=== PATIENT | male | born 1955 | race Caucasian/White ===

== ENCOUNTER 2018-05-12 08:00 | Emergency (ER) | payer OTHER, SELFPAY ==
[2018-05-12] VITALS (52 sets, daily range): BP systolic 139–169; BP diastolic 69–91; PULSE 54–72; RESP 12–36; TEMP 37; O2SAT 92–97
--- NOTE | 2018-05-12 08:43 | DI.REPORT_ITS ---
SYMPTOM/DIAGNOSIS: LT POST SHOULDER PAIN PA AND LATERAL CHEST: The heart is normal in size. The lungs are clear. The mediastinal structures and pleura appear intact. CONCLUSION: Normal chest.
[2018-05-12 08:48] LABS: Abs Immature Grans 0.03 k/cumm (0.0-0.09); Absolute Basophil Count 0.02 k/cumm (0.0-0.2); Absolute Eosinophil Count 0.27 k/cumm (0.0-0.7); Absolute Lymphocyte Count 1.53 k/cumm (1.2-3.4); Absolute Monocyte Count 0.51 k/cumm (0.11-0.7); Absolute Neutrophil Count 4.65 k/cumm (1.2-6.7); Basophils % 0.3; Eosinophils % 3.9; HCT 39.2 % (40.0-50.0); HGB 13.3 g/dL (13.5-17.5); Immature Grans % 0.4; Lymphocytes % 21.8; Mean Corp. HGB Concentration 33.9 g/dL (32.0-36.0); Mean Corpuscular Hemoglobin 30.7 pg (27.0-33.0); Mean Corpuscular Volume 90.5 fL (80-95); Mean Platelet Volume 9.8 fL (8.0-11.0); Monocytes % 7.3; Neutrophils % 66.3; Platelet Count 239 x1000/uL (130-400); RBC 4.33 m/cumm (4.50-6.00); RBC Distribution Width 12.5 % (11.8-14.1); White Blood Cell Count 7.01 k/cumm (4.4-10.8)
[2018-05-12 08:59] LABS: Lipase 292 U/L (73-393)
[2018-05-12 09:07] LABS: ALT 31 U/L (12-78); AST 15 U/L (15-37); Albumin 3.2 g/dL (3.4-5.0); Alkaline Phosphatase 83 U/L (46-116); Anion Gap 7.6 mmol/L (3-11); BUN 25 mg/dL (7-18); Bilirubin, Direct 0.07 mg/dL (0.00-0.20); Bilirubin, Total 0.2 mg/dL (0.2-1.0); CO2 26.4 mmol/L (21.0-32.0); CREATININE 1.29 mg/dL (0.70-1.30); Calcium 9.2 mg/dL (8.5-10.1); Chloride 103 mmol/L (98-107); Glucose 195 mg/dL (70-100); Magnesium 1.6 mg/dL (1.8-2.4); Potassium 4.3 mmol/L (3.5-5.1); Sodium 137 mmol/L (136-145); Total Protein 6.6 g/dL (6.4-8.2)
[2018-05-12 09:10] LABS: Troponin I < 0.02 ng/mL (0.00-0.06)
[2018-05-12] MEDS: Normal Saline 250 ML IV (09:30)
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
--- NOTE | 2018-05-12 10:52 | DI.RPTCT_ITS ---
SYMPTOM/DIAGNOSIS: HEADACHE, LT SIDED NECK PAIN, ? ACUTE CVA NONCONTRAST HEAD CT: A noncontrast cranial CT was performed. The ventricular system is normal in appearance. There is a small periventricular focus of decreased attenuation associated with the head of the caudate nucleus on the left, this appears to represent an old infarct and was present on previous CT of 03/25/15. Another small area of decreased attenuation is noted in the basal ganglia on the right and this also was probably present on the previous examination. There is no evidence of acute intracranial hemorrhage, mass effect or midline shift. The orbital and temporal bone structures appear intact. Paranasal sinuses and mastoid air cells are well aerated as visualized. CONCLUSION: No evidence of acute intracranial process.
[2018-05-12] MEDS: Ketorolac 30 MG/ML VIAL IVP (11:52)
[2018-05-12] MEDS: Normal Saline 250 ML 500 ML IV (11:53)
[2018-05-12] MEDS: Magnesium Oxide 400 MG TAB PO (11:54)
[2018-05-12 13:23] LABS: Troponin I < 0.02 ng/mL (0.00-0.06)
--- NOTE | 2018-05-13 12:49 | PDOC.ERCMPRO ---
Care Management Progress Note 05/13-Dr. Thomas requested assistance with a neurology f/u, next available appt, for ?concussion, pat had head injury back in January. still having headaches/visual changes. Referral faxed to neurology today.
== END 2018-05-12 14:01 | disposition home or self-care (01) ==
PROVIDERS: Emergency Provider Physician Assistant; PCP Family Medicine
DX: R55 Syncope and collapse (principal); M54.2 Cervicalgia; R51 Headache; E83.42 Hypomagnesemia; E11.9 Type 2 diabetes mellitus without complications; Z79.84 Long term (current) use of oral hypoglycemic drugs; I10 Essential (primary) hypertension
CPT/HCPCS: 36415; 80053; 80076; 83690; 93005; 93225; 96361; 96374; 99285; 70450; 71046; 83735; 84484; 85025; 93010; J1885

== ENCOUNTER → 2018-05-18 10:26 | Outpatient (CLI) | payer OTHER, SELFPAY ==
[2018-05-18 12:09] LABS: TSH (W/Ref FT4) 1.48 uIU/mL (0.358-3.74)
== END ==
PROVIDERS: PCP Family Medicine; Visit Provider Family Medicine
DX: R55 Syncope and collapse (principal)
CPT/HCPCS: 36415; 84443

== ENCOUNTER 2018-05-20 01:37 | Outpatient (CLI) | payer OTHER, SELFPAY ==
--- NOTE | 2018-05-20 13:14 | DI.REPORT_ITS ---
SYMPTOMS/DIAGNOSIS: SYNCOPE, R55 CAROTID ULTRASOUND: The intimal thickness is at the upper limits of normal in thickness in the distal common carotid arteries. There is a 1.2 cm prominence adjacent to the vessel wall measuring approximately 1.2 cm involving the proximal wall of the left internal carotid artery, which may represent soft plaque and occupies approximately one-half of the proximal left ICA diameter. There is no evidence of stenosis. No significant stenosis is identified in the right or left carotid arteries. There is bilateral antegrade flow in the vertebrals. SUMMARY: No evidence of significant carotid stenosis. Questioned area of soft plaque involving the proximal portion of the left internal carotid artery without evidence of stenosis.
== END 2018-05-20 01:38 ==
PROVIDERS: PCP Family Medicine; Visit Provider Family Medicine
DX: R55 Syncope and collapse (principal); I65.22 Occlusion and stenosis of left carotid artery
CPT/HCPCS: 93880

== ENCOUNTER 2018-05-20 02:53 | Outpatient (CLI) | payer OTHER, SELFPAY ==
--- NOTE | 2018-05-20 15:30 | PFT_ITS ---
INTERPRETATION SPIROMETRY: Spirometry shows no evidence of obstructive airways disease. No bronchodilator response. LUNG VOLUMES: Lung volumes show mild restriction. DIFFUSION CAPACITY: Borderline mildly reduced which is normal when corrected to alveolar volume. AIRWAY RESISTANCE: Normal. IMPRESSION: Mild restrictive lung disease. Clinical correlation recommended. If underlying interstitial lung disease is suspected as the cause of underlying pulmonary hypertension, further evaluation with advanced imaging may prove to be useful. HAND SIGNED COPY OF THIS NOTE IS SCANNED INTO THE EMR
[2018-05-20] MEDS: Albuterol HFA 18 GM 200 PUFF INH IH (15:51)
[2018-05-20] MEDS: Inhaler, Assist Device 1 EACH MC (15:51)
== END 2018-05-20 02:54 ==
PROVIDERS: PCP Family Medicine; Visit Provider Family Medicine
DX: J98.4 Other disorders of lung (principal); R55 Syncope and collapse
CPT/HCPCS: 94060; 94150; 94726; 94729

== ENCOUNTER → 2018-05-21 13:38 | Outpatient (CLI) | payer OTHER, SELFPAY ==
--- NOTE | 2018-05-27 15:59 | HOLTER_ITS ---
Date of dictation: May 26, 2018 Date of recording: May 21, 2018 Date of analysis: May 24, 2018 Indication: Syncope. Referred by: Ramon Lerner M.D. Findings: 1. Baseline sinus rhythm, 54-93 bpm, average 65 bpm. 2. Rare PAC (54/2 days), 1 3-beat SVT run, 160 bpm, no AF. 3. Rare PVC (5/2 days), no VT. 4. No significant pauses. 5. No symptoms recorded.
== END ==
PROVIDERS: PCP Family Medicine; Visit Provider Family Medicine
DX: R55 Syncope and collapse (principal); I10 Essential (primary) hypertension
CPT/HCPCS: 93225

== ENCOUNTER 2018-05-24 11:58 | Outpatient (CLI) | payer OTHER, SELFPAY | END 2018-05-24 12:18 | PROVIDERS: PCP Family Medicine; Visit Provider Family Medicine | DX: R55 Syncope and collapse (principal); I10 Essential (primary) hypertension | CPT/HCPCS: 93226 ==

== ENCOUNTER 2018-06-16 09:08 | Outpatient (CLI) | payer OTHER, SELFPAY ==
[2018-06-16 11:10] LABS: Vitamin B12 433 pg/mL (193-986)
== END 2018-06-16 09:28 ==
PROVIDERS: PCP Family Medicine; Visit Provider Nurse Practitioner Adult Health
DX: R41.3 Other amnesia (principal)
CPT/HCPCS: 36415; 82607

== ENCOUNTER 2018-06-30 12:15 | Emergency (ER) | payer OTHER, SELFPAY ==
[2018-06-30] VITALS (35 sets, daily range): BP systolic 121–146; BP diastolic 65–83; PULSE 57–66; RESP 16–30; TEMP 36.5; O2SAT 93–97
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
[2018-06-30 13:28] LABS: Abs Immature Grans 0.03 k/cumm (0.0-0.09); Absolute Basophil Count 0.03 k/cumm (0.0-0.2); Absolute Eosinophil Count 0.22 k/cumm (0.0-0.7); Absolute Lymphocyte Count 2.14 k/cumm (1.2-3.4); Absolute Monocyte Count 0.53 k/cumm (0.11-0.7); Absolute Neutrophil Count 5.62 k/cumm (1.2-6.7); Basophils % 0.4; Eosinophils % 2.6; HGB 14.1 g/dL (13.5-17.5); Immature Grans % 0.4; Mean Corp. HGB Concentration 34.4 g/dL (32.0-36.0); Mean Corpuscular Hemoglobin 30.7 pg (27.0-33.0); Mean Corpuscular Volume 89.1 fL (80-95); Mean Platelet Volume 10.6 fL (8.0-11.0); Monocytes % 6.2; Neutrophils % 65.4; Platelet Count 260 x1000/uL (130-400); RBC Distribution Width 12.8 % (11.8-14.1); White Blood Cell Count 8.57 k/cumm (4.4-10.8)
[2018-06-30 13:57] LABS: ALT 42 U/L (12-78); AST 18 U/L (15-37); Albumin 3.5 g/dL (3.4-5.0); Alkaline Phosphatase 95 U/L (46-116); Anion Gap 10.4 mmol/L (3-11); BUN 30 mg/dL (7-18); Bilirubin, Total 0.3 mg/dL (0.2-1.0); CO2 25.6 mmol/L (21.0-32.0); Calcium 9.2 mg/dL (8.5-10.1); Chloride 102 mmol/L (98-107); Glucose 195 mg/dL (70-100); Potassium 4.3 mmol/L (3.5-5.1); Sodium 138 mmol/L (136-145); Total Protein 7.1 g/dL (6.4-8.2)
[2018-06-30 13:59] LABS: Troponin I < 0.02 ng/mL (0.00-0.06)
[2018-06-30 14:02] LABS: D-Dimer 574 ng/mlFEU (<500)
--- NOTE | 2018-06-30 14:24 | DI.RAD_ITS ---
SYMPTOM/DIAGNOSIS: SYNCOPE PA AND LATERAL CHEST: Comparison is made with 05/12/18. The heart is normal in size. The lungs are clear. The mediastinal structures and pleura appear intact. CONCLUSION: Normal chest.
[2018-06-30] MEDS: Normal Saline 1,000 ML 1000 ML IV (16:51)
--- NOTE | 2018-07-01 12:02 | PDOC.ERCMPRO ---
Care Management Progress Note 07/01-Dr. Shayla Rodriguez requested assistance with a cardiology appt this week for recurrent syncope. Referral faxed to Cardiology this am.
--- NOTE | 2018-07-12 14:04 | HOLTER_ITS ---
DATE OF REPORT: July 12, 2018 FINDINGS: Baseline rhythm sinus. Rare single PAC. Two bursts SVT, longest 3-beat duration, fastest 167 bpm. No atrial fibrillation. Rare single PVC. No VT. Nocturnal heart rates as low as 50-55 bpm, sinus bradycardia. No symptoms. Average heart rate 71 bpm.
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
== END 2018-06-30 18:18 | disposition home or self-care (01) ==
PROVIDERS: Emergency Provider Student in an Organized Health Care Education/Training Program; PCP Family Medicine
DX: R42 Dizziness and giddiness (principal); I10 Essential (primary) hypertension; E11.9 Type 2 diabetes mellitus without complications; Z79.4 Long term (current) use of insulin
CPT/HCPCS: 36415; 80053; 93005; 96360; 99285; 71046; 84484; 85025; 85379; 93010; 93225

== ENCOUNTER 2018-07-01 02:23 | Outpatient (CLI) | payer OTHER, SELFPAY | END 2018-07-01 02:43 | PROVIDERS: PCP Family Medicine | DX: R41.841 Cognitive communication deficit (principal) | CPT/HCPCS: 96125 ==

== ENCOUNTER 2018-07-05 16:47 | Outpatient (CLI) | payer OTHER, SELFPAY ==
[2018-07-05 17:06] LABS: Abs Immature Grans 0.04 k/cumm (0.0-0.09); Absolute Basophil Count 0.02 k/cumm (0.0-0.2); Absolute Eosinophil Count 0.27 k/cumm (0.0-0.7); Absolute Lymphocyte Count 2.99 k/cumm (1.2-3.4); Absolute Monocyte Count 0.68 k/cumm (0.11-0.7); Absolute Neutrophil Count 5.75 k/cumm (1.2-6.7); Basophils % 0.2; Eosinophils % 2.8; HCT 42.5 % (40.0-50.0); HGB 14.1 g/dL (13.5-17.5); Immature Grans % 0.4; Lymphocytes % 30.7; Mean Corp. HGB Concentration 33.2 g/dL (32.0-36.0); Mean Corpuscular Hemoglobin 29.8 pg (27.0-33.0); Mean Corpuscular Volume 89.9 fL (80-95); Mean Platelet Volume 9.6 fL (8.0-11.0); Neutrophils % 58.9; Platelet Count 275 x1000/uL (130-400); RBC 4.73 m/cumm (4.50-6.00); White Blood Cell Count 9.75 k/cumm (4.4-10.8)
[2018-07-05 17:53] LABS: Anion Gap 7.4 mmol/L (3-11); BUN 26 mg/dL (7-18); CO2 30.6 mmol/L (21.0-32.0); CREATININE 1.07 mg/dL (0.70-1.30); Calcium 9.1 mg/dL (8.5-10.1); Chloride 102 mmol/L (98-107); Glucose 140 mg/dL (70-100); Potassium 4.3 mmol/L (3.5-5.1); Sodium 140 mmol/L (136-145)
== END 2018-07-05 17:07 ==
LOC: LBO 07-06 13:56 → NCHCO 07-06 15:46
PROVIDERS: PCP Family Medicine; Visit Provider Nurse Practitioner Primary Care
DX: R55 Syncope and collapse (principal)
CPT/HCPCS: 36415; 80048; 85025

== ENCOUNTER 2018-07-09 09:18 | Outpatient (CLI) | payer OTHER, SELFPAY | END 2018-07-09 09:38 | PROVIDERS: PCP Family Medicine; Visit Provider Family Medicine | DX: R55 Syncope and collapse (principal); R42 Dizziness and giddiness; R00.1 Bradycardia, unspecified; I47.1 Supraventricular tachycardia | CPT/HCPCS: 93226 ==

== ENCOUNTER 2018-07-25 12:42 | Emergency (ER) | payer OTHER, SELFPAY ==
[2018-07-25] VITALS (42 sets, daily range): BP systolic 121–155; BP diastolic 67–93; PULSE 60–79; RESP 11–29; TEMP 36.3–36.5; O2SAT 94–98
[2018-07-25] MEDS: Normal Saline Flush 10 ML SYR IVP (13:05)
[2018-07-25] MEDS: Normal Saline 1,000 ML 1000 ML IV (13:16)
[2018-07-25 13:20] LABS: Abs Immature Grans 0.04 k/cumm (0.0-0.09); Absolute Basophil Count 0.03 k/cumm (0.0-0.2); Absolute Eosinophil Count 0.41 k/cumm (0.0-0.7); Absolute Lymphocyte Count 2.07 k/cumm (1.2-3.4); Absolute Monocyte Count 0.51 k/cumm (0.11-0.7); Absolute Neutrophil Count 5.63 k/cumm (1.2-6.7); Basophils % 0.3; Eosinophils % 4.7; HGB 13.8 g/dL (13.5-17.5); Immature Grans % 0.5; Lymphocytes % 23.8; Mean Corp. HGB Concentration 33.7 g/dL (32.0-36.0); Mean Corpuscular Hemoglobin 30.7 pg (27.0-33.0); Mean Corpuscular Volume 91.1 fL (80-95); Mean Platelet Volume 9.8 fL (8.0-11.0); Monocytes % 5.9; Neutrophils % 64.8; Platelet Count 275 x1000/uL (130-400); White Blood Cell Count 8.69 k/cumm (4.4-10.8)
--- NOTE | 2018-07-25 13:24 | DI.CT_ITS ---
SYMPTOM/DIAGNOSIS: CLOUDED VISION LEFT EYE AFTER NEAR SYNCOPE CT BRAIN: Noncontrast examination. Comparison 04/22/18 The ventricles and sulci are consistent with the patient's age. There are old bilateral lacunar infarcts present. No acute intracranial hemorrhage, infarct, midline shift or mass effect is identified. The calvarium is intact. The visualized paranasal sinuses are clear. The mastoid air cells are well pneumatized. IMPRESSION: No acute intracranial process.
[2018-07-25 13:36] LABS: ALT 42 U/L (12-78); AST 15 U/L (15-37); Albumin 3.4 g/dL (3.4-5.0); Alkaline Phosphatase 100 U/L (46-116); Anion Gap 10.5 mmol/L (3-11); BUN 38 mg/dL (7-18); Bilirubin, Total 0.2 mg/dL (0.2-1.0); CO2 26.5 mmol/L (21.0-32.0); CREATININE 1.32 mg/dL (0.70-1.30); Calcium 9.1 mg/dL (8.5-10.1); Chloride 101 mmol/L (98-107); Estimated GFR 54.43 (mL/min/1.73m2); Glucose 343 mg/dL (70-100); Magnesium 1.9 mg/dL (1.8-2.4); PTT Activated 25.5 sec (21.0-31.4); Potassium 4.3 mmol/L (3.5-5.1); Prothrombin Time 9.3 sec (9.3-10.8); Sodium 138 mmol/L (136-145)
[2018-07-25 13:39] LABS: Troponin I < 0.02 ng/mL (0.00-0.06)
--- NOTE | 2018-07-25 13:41 | W.ED.GENAD ---
Discharge Plan Disposition Patient Disposition: HOME Condition: Fair Discharge Details Chief Complaint: Dizzy/Sync Clinical Impression: Atypical syncope Primary Care Provider: Ramon Lerner ED Provider: Karyn Valverde Home Meds and New Rx's Prescriptions: Continue aspirin [Adult Aspirin Regimen] 81 mg tablet,delayed release (DR/EC) 81 mg PO DAILY RF: 0 cetirizine [All Day Allergy (cetirizine)] 10 mg capsule 10 mg PO DAILY RF: 0 glipizide 10 mg tablet 10 mg PO BID RF: 0 hydrochlorothiazide 25 mg tablet 25 mg PO DAILY RF: 0 insulin glargine 100 unit/mL (3 mL) insulin pen 40 unit SC HS RF: 0 lisinopril 20 mg tablet 20 mg PO BID RF: 0 metformin 1,000 mg tablet 1,000 mg PO BID RF: 0 metoprolol succinate 100 mg tablet extended release 24 hr 50 mg PO DAILY RF: 0 nitroglycerin 0.4 mg tablet, sublingual 0.4 mg SL ONCE RF: 0 zolpidem 6.25 mg tablet,ext release multiphase 6.25 mg PO ONCE PRNRF: 0 pen needle, diabetic [BD Ultra-Fine Leah Pen Needle] 32 gauge x 5/32 needle .ROUTE .MEDSUPPLY Qty: 10 RF: 0 bupropion HCl 150 mg tablet extended release 24 hr 150 mg PO QAM Qty: 90 RF: 3 Discharge Instructions Instructions: Syncope (ED) Additional Instructions: Encourage hydration. Please continue medications as previously prescribed. I have asked our animal care service worker to help facilitate follow up with neurology. Dr. You is requested that you have an EEG and MRI prior to meeting with her. Please keep your upcoming appointment with your primary care as well as cardiac follow-up. Please contact your support services manager tomorrow to discuss the episode today and see if the event monitor may have caught anything. If you develop chest pain or shortness of breath, syncope, headache or other new/worsening symptoms please seek care immediately once again Referrals: Ramon Lerner [Primary Care Provider] - Discharge Data Discharge Date/Time-TO BE ENTERED AT DEPARTURE: 07/25/18 18:04 Medical Decision Making Patient is a 63-year-old male, accompanied by his , with chief complaints of lightheadedness and cloudy vision in my left eye. Patient has had multiple syncopal episodes. He has history of hypertension, diabetes, hyperlipidemia, CVA. 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 At that point, the patient suffered a syncopal episode and fell off a deck striking his head. Since that time, he is not had any notable physical deficits but his has noted him to be organizational leg deficits and unable to drive. He reports that his sense of smell has been diminished. Also reports that he has had difficulty reading but attributes this to his lack of ability to retain what he is reading. Patient reports that his diagnosis of CVA stem from his multiple CT scans which were notable for old infarcts that were seen on multiple images. Patient has been furloughed by neurology as well as cardiology. Everything that his multiple syncopal episodes are cardiac base. Patient has had a Zile patch, Holter monitor and currently has Preventis in place. No acute abnormalities are diagnosed on these as of yet. Patient underwent a cardiac cath 9 days ago with no acute abnormalities per patientreport. He had cath in 2010 and no changes noted. 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 Patient is followed by neurology here and cardiology at [facility]. Patient reports that today, around 11 AM, he became slightly lightheaded when he was working in the yard. States that after sitting and resting this seemed to worsen and he reports some mild chest discomfort and shortness of breath. He then laid down and took a nap. When he awoke, his symptoms had improved but he noted cloudiness in the left eye. Patient is quite adamant that this was in the left eye. However, on visual acuity exam, patient is noted to have 20/20 bilaterally, 20/25 in the left and 20/100 in the right. Reports that he has been seen by ophthalmology since his TBI as he had noted visual changes. Was unaware of the acute difference between the 2 eyes. At the time of evaluation, patient reports that his symptoms have resolved. He reports that he is feeling at baseline. Neuro exam and cardiopulmonary exam are without acute abnormalities. If these symptoms are recurrent, have low concern for pulmonary embolism although the patient was endorsing some mild chest discomfort and shortness of breath. Will obtain d-dimer. Will obtain EKG, head CT for stroke protocol given the visual changes, laboratory evaluation. Discussed the plan with the patient. We will also attempt to contact his support services manager was accessed to the ekg monitor tech he has gone to see if we can find a diagnosis linked to this time of the syncopal episode. Laboratory evaluation significant for elevated d-dimer 683. Will obtain CT for PE protocol. EKG reviewed by Dr. Rodriguez. NSR, rate 71. No acute ischemic changes noted. Patient does appear dry, will continue with hydration No acute intracranial process is noted per radiologist on CT. Spoke with Dr. Hedrick with cardiology. I was questioning if he may review the findings of the event monitor at this time so we can know if he had an arrhythmia leading to his lightheadedness and symptoms. He advised at this point he is unable to see this. Would be able to review this tomorrow. I attempted to review the cell phone like device that comes with it but I am unable to back this up at all, and only able to see that the device is actively connected and working appropriately. He advised that his symptoms sound more consistent with a TIA. I have discussed this concern with a TIA with the patient and his initially regarding the cloudy vision which is since resolved. Normal, his multiple syncopal episodes over the past year does not sound consistent with TIA. His episodes of often occurred in different positions, different levels of exertion and unprovoked. , who is a nurse, has not noted him to be postictal after these episodes but does report that he has been very fatigued and often needs a nap after these episodes. Will consult with neurology. Consulted with Dr. You regarding patient's symptoms. She advised that given the location of the brief cloudiness this is not consistent with a TIA. She advised was a TIA he would have had bilateral symptoms which he did not. She also felt that if the eye itself is having ischemia he would have had visual loss not blurred vision. We did discuss other etiologies such as optic neuritis but this is unlikely given the brief episode that occurred and that he was at baseline prior to arrival. We did discuss the patient's history of syncopal episodes and the events associated with them. She advised the patient should have follow-up with her. Is asking MRI and EEG be ordered outpatient. Also requested sleep study as she was concerned for possible obstructive sleep apnea. However, patient reports he did have a sleep study completed last night, results are not yet known. Discussed this with the patient and his and discussed her recommendations. He does have upcoming appointment with cardiology. He will contact them tomorrow to discuss event monitor further. We did discuss inpatient versus outpatient options. However, as this seems to be a very chronic issue, with no acute changes today, and it is not thought to be a TIA that caused his symptoms at this time, patient may return home with close outpatient follow-up. I have asked her animal care service worker help facilitate follow-up with Dr. You in the past along the outpatient order she has requested. He was given strict return precautions. Lives locally with his and is able to return immediately. Patient is Disha made the decision that he is not driving and he has not done so since the onset of his symptoms. All of his questions and concerns were addressed and he is in agreement with this plan. HPI General Mode of arrival: ambulatory. Date/Time Provider Initiated Documentation: 07/25/18 13:01. Limitations to Documentation: no limitations. Information obtained by: patient and family. History of Present Illness 63 year old M presents to the emergency department with the chief complaint of lightheaded, described as moderate, Patient started experiencing this hour(s) (1.5 hours prior to arrival) and it has been intermittent (has been intermittent for the past year). No exacerbating factors reported . Patient notes chest pain (reports that he had small amount of chest pain while lightheaded, this is since resolved) and shortness of breath (reports mild SOB while experiencing lightheadedness, this is isince resolved); denies cough, diaphoresis, fever/chills, headaches, loss of appetite, malaise, nausea/vomiting, rash and syncope (has had multiple episodes of syncope, none today. Last was prior to last visit a few weeks ago). Patient did receive the following treatments prior to arrival, none Related Data Home Medications Medication Instructions Recorded Confirmed aspirin 81 mg tablet,delayed 81 mg PO DAILY 05/31/18 07/25/18 release cetirizine 10 mg capsule 10 mg PO DAILY cap 05/31/18 07/25/18 glipizide 10 mg tablet 10 mg PO BID 05/31/18 07/25/18 hydrochlorothiazide 25 mg tablet 25 mg PO DAILY 05/31/18 07/25/18 insulin glargine (U-100) 100 40 unit SC HS ml 05/31/18 07/25/18 unit/mL (3 mL) subcutaneous pen lisinopril 20 mg tablet 20 mg PO BID 05/31/18 07/25/18 metformin 1,000 mg tablet 1,000 mg PO BID 05/31/18 07/25/18 metoprolol succinate ER 100 mg 50 mg PO DAILY 05/31/18 07/25/18 tablet,extended release 24 hr nitroglycerin 0.4 mg sublingual 0.4 mg SL ONCE 05/31/18 07/25/18 tablet pen needle, diabetic 32 gauge x #10 each 05/31/18 06/16/18 zolpidem ER 6.25 mg 6.25 mg PO ONCE PRN 05/31/18 07/25/18 tablet,extended release,multiphase bupropion HCl XL 150 mg 24 hr 150 mg PO QAM #90 tab 07/11/18 07/25/18 tablet, extended release Previous Rx's Medication Instructions Recorded bupropion HCl XL 150 mg 24 hr 150 mg PO QAM #90 tab 07/11/18 tablet, extended release Allergies Allergy/AdvReac Type Severity Reaction Status Date / Time HMG-CoA REDUCTASE INHIBITORS AdvReac Intermediate MYALGIA Uncoded 07/25/18 15:12 General Stated Complaint: Dizzy/Sync RADHA: 2 Review of Systems Constitutional Reports as per HPI and Denies headache(s) Eyes Reports as per HPI, Reports change in vision (endorses cloudiness in the left eye which has since resolved) and Denies loss of vision (change in vision, no loss of vision) ENT Denies abnormal hearing, Denies vertigo, Reports dizziness and Denies headache(s) Cardiovascular Reports as per HPI and Denies syncope (has had multiple syncopal episodes historically, no syncope today) Respiratory Reports as per HPI Gastrointestinal Denies abdominal pain, Denies nausea and Denies vomiting Genitourinary Denies system reviewed and no additional complaints, except as docu (denies any change in urinary habits) Musculoskeletal Reports as per HPI, Denies abnormal gait, Denies back pain and Denies numbness Integumentary/Breasts Reports as per HPI and Denies rash Neurologic Reports as per HPI, Denies abnormal hearing, Denies abnormal movements, Denies abnormal speech, Denies abnormal gait, Denies vertigo, Reports dizziness, Denies syncope (has had multiple syncopal episodes historically, no syncope today), Denies headache(s), Denies loss of vision (change in vision, no loss of vision), Denies memory loss, Denies numbness and Denies radicular pain Psychiatric Denies memory loss PFSH Family History Mother Essential hypertension Cerebrovascular accident Father CAD (coronary artery disease) Liver cancer Sister No problems noted. Brother No problems noted. Son No problems noted. Son No problems noted. 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) Diverticulosis (Acute 07/28/16) Depression (Acute 03/17/13) ADHD (attention deficit hyperactivity disorder) DM (diabetes mellitus) Essential hypertension WERNER (obstructive sleep apnea) Social History household members: other pets and animals: Yes pets and animals: cat(s) and dog(s) frequency: 3-4 times per week duration: 15-30 minutes/day Smoking/Tobacco Use Status: Former Tobacco Use second hand exposure: No alcohol intake: current alcohol intake frequency: a few times a month substance use type: does not use jason/caodaism: Restorationist special jason needs: No Surgical History Arthroplasty of knee Colonoscopy - MAC (07/28/16) Rotator Cuff Repair Exam Const General: cooperative, healthy appearing, comfortable, no acute distress, well developed and well groomed Nutritional Appearance: average body habitus and well nourished Orientation: alert, awake and oriented x3 HENMT Head: normal to inspection, no palpable skull fracture, normocephalic and atraumatic Ears: hearing grossly normal bilaterally, external ears normal and TM's normal bilaterally General nose exam: external nose normal and nares normal Face and sinus: normal facial exam and sinuses nontender Mouth: oral mucosae normal, lip normal, tongue normal, oropharynx normal and no muffled voice Throat: posterior oropharynx normal Eyes General: appearance normal, both eyes and all related structures Alignment and Position: alignment normal Periorbital: periorbital findings normal Eyelids: eyelids normal Conjunctivae: conjunctivae normal Sclera: sclerae normal Pupils: PERRL EOM: EOM intact bilaterally and No nystagmus Neck Neck: normal visual inspection, full ROM, no lymphadenopathy and nontender Resp Effort & Inspection: normal respiratory effort, able to speak in complete sentences and no respiratory distress Auscultation: clear to auscultation bilaterally, no rales, no rhonchi and no wheezes Cardio Rate: regular rate Rhythm: regular rhythm Heart Sounds: S1 normal and S2 normal GI Inspection: normal to inspection and abdominal wall ecchymosis Palpation: soft, no hepatosplenomegaly, no aortic enlargement, not firm, no guarding, not rigid and nontender Auscultation: normal bowel sounds Skin General skin exam: no rashes or lesions noted Trauma: no lacerations or abrasions Neuro General: alert, awake, oriented x3, gait normal, tone normal, moves all extremities, no meningeal signs, no focal motor deficits, CN's II-XI intact bilaterally and deep tendon reflexes 2+ bilaterally Cranial Nerves: CN's II-XI intact bilaterally, PERRL, accommodation normal, EOM intact bilaterally, no nystagmus, facial strength normal, tongue midline, hearing normal, able to rotate head bilaterally, able to elevate shoulders bilaterally and no nystagmus Cognition: normal cognition Speech: speech normal Gait: normal gait Motor: muscle tone normal throughout, strength 5/5 throughout, no pronator drift, no movement abnormalities noted and no fasciculations Sensory Exam: no sensory deficits noted Plantar Reflexes: Downgoing: bilateral Coordination: [id number] test normal, [id number] test normal and rapid alternating movement LE normal Extrem General: normal to inspection, full ROM, no pedal edema and no calf tenderness Psych Appearance: grossly normal and well kempt Mental Status: mental status grossly normal Speech and Movement: speech and movement normal Course Vital Signs Temperature 36.3 C L 07/25/18 13:00 Pulse 72 07/25/18 13:00 Respiratory Rate 20 07/25/18 13:00 Blood Pressure 126/69 07/25/18 13:00 Pulse Oximetry 96 07/25/18 13:00 Temperature 36.3 C L 07/25/18 13:00 Pulse 72 11/04/18 13:00 Respiratory Rate 20 07/25/18 13:00 Respiratory Effort 07/25/18 13:06 Blood Pressure 126/69 07/25/18 13:00 Pulse Oximetry 96 07/25/18 13:00 Oxygen Delivery Method Room Air 07/25/18 13:00 Oxygen Flow Rate 0 07/25/18 13:00 Lab/Test Results Lab/Test Results: Laboratory Tests Range/Units 07/25/18 07/25/18 07/25/18 13:05 13:05 13:05 WBC (4.4-10.8) k/cumm 8.69 RBC (4.50-6.00) m/cumm 4.50 Hgb (13.5-17.5) g/dL 13.8 Hct (40.0-50.0) % 41.0 MCV (80-95) fL 91.1 MCH (27.0-33.0) pg 30.7 MCHC (32.0-36.0) g/dL 33.7 RDW (11.8-14.1) % 13.0 Plt Count (130-400) x1000/uL 275 MPV (8.0-11.0) fL 9.8 Immature Gran % 0.5 Neutrophils % 64.8 Lymphocytes % 23.8 Monocytes % 5.9 Eosinophils % 4.7 Basophils % 0.3 Absolute Neutrophils (1.2-6.7) k/cumm 5.63 Absolute Lymphocytes (1.2-3.4) k/cumm 2.07 Absolute Monocytes (0.11-0.7) k/cumm 0.51 Absolute Eosinophils (0.0-0.7) k/cumm 0.41 Absolute Basophils (0.0-0.2) k/cumm 0.03 PT (9.3-10.8) sec 9.3 INR (1.0-3.5) 1.0 APTT (21.0-31.4) sec 25.5 Sodium (136-145) mmol/L 138 Potassium (3.5-5.1) mmol/L 4.3 Chloride (98-107) mmol/L 101 Carbon Dioxide (21.0-32.0) mmol/L 26.5 Anion Gap (3-11) mmol/L 10.5 BUN (7-18) mg/dL 38 H Creatinine (0.70-1.30) mg/dL 1.32 H Estimated GFR/1.73 m2 (mL/min/1.73m2) 54.43 Glucose (70-100) mg/dL 343 H Calcium (8.5-10.1) mg/dL 9.1 Magnesium (1.8-2.4) mg/dL 1.9 Total Bilirubin (0.2-1.0) mg/dL 0.2 AST (15-37) U/L 15 ALT (12-78) U/L 42 Alkaline Phosphatase (46-116) U/L 100 Troponin I (0.00-0.06) ng/mL < 0.02 Total Protein (6.4-8.2) g/dL 7.0 Albumin (3.4-5.0) g/dL 3.4 TSH (0.358-3.74) uIU/mL 2.20
--- NOTE | 2018-07-25 13:49 | ED.GENADUL_ITS ---
Discharge Plan Disposition Patient Disposition: HOME Condition: Fair Discharge Details Chief Complaint: Dizzy/Sync Clinical Impression: Atypical syncope Primary Care Provider: Ramon Lerner ED Provider: Karyn Valverde Home Meds and New Rx's Prescriptions: Continue aspirin [Adult Aspirin Regimen] 81 mg tablet,delayed release (DR/EC) 81 mg PO DAILY RF: 0 cetirizine [All Day Allergy (cetirizine)] 10 mg capsule 10 mg PO DAILY RF: 0 glipizide 10 mg tablet 10 mg PO BID RF: 0 hydrochlorothiazide 25 mg tablet 25 mg PO DAILY RF: 0 insulin glargine 100 unit/mL (3 mL) insulin pen 40 unit SC HS RF: 0 lisinopril 20 mg tablet 20 mg PO BID RF: 0 metformin 1,000 mg tablet 1,000 mg PO BID RF: 0 metoprolol succinate 100 mg tablet extended release 24 hr 50 mg PO DAILY RF: 0 nitroglycerin 0.4 mg tablet, sublingual 0.4 mg SL ONCE RF: 0 zolpidem 6.25 mg tablet,ext release multiphase 6.25 mg PO ONCE PRNRF: 0 pen needle, diabetic [BD Ultra-Fine Leah Pen Needle] 32 gauge x 5/32 needle .ROUTE .MEDSUPPLY Qty: 10 RF: 0 bupropion HCl 150 mg tablet extended release 24 hr 150 mg PO QAM Qty: 90 RF: 3 Discharge Instructions Instructions: Syncope (ED) Additional Instructions: Encourage hydration. Please continue medications as previously prescribed. I have asked our managed care coordinator to help facilitate follow up with neurology. Dr. You is requested that you have an EEG and MRI prior to meeting with her. Please keep your upcoming appointment with your primary care as well as cardiac follow-up. Please contact your screen printing machine loader unloader tomorrow to discuss the episode today and see if the event monitor may have caught anything. If you develop chest pain or shortness of breath, syncope, headache or other new/ worsening symptoms please seek care immediately once again Referrals: Ramon Lerner [Primary Care Provider] - Discharge Data Discharge Date/Time-TO BE ENTERED AT DEPARTURE: 07/25/18 18:04 Medical Decision Making Patient is a 63-year-old male, accompanied by his , with chief complaints of lightheadedness and cloudy vision in my left eye. Patient has had multiple syncopal episodes. He has history of hypertension, diabetes, hyperlipidemia, CVA. 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 At that point , the patient suffered a syncopal episode and fell off a deck striking his head. Since that time, he is not had any notable physical deficits but his has noted him to be organizational leg deficits and unable to drive. He reports that his sense of smell has been diminished. Also reports that he has had difficulty reading but attributes this to his lack of ability to retain what he is reading. Patient reports that his diagnosis of CVA stem from his multiple CT scans which were notable for old infarcts that were seen on multiple images. Patient has been furloughed by neurology as well as cardiology. Everything that his multiple syncopal episodes are cardiac base. Patient has had a Zile patch, Holter monitor and currently has Preventis in place. No acute abnormalities are diagnosed on these as of yet. Patient underwent a cardiac cath 9 days ago with no acute abnormalities per patientreport. He had cath in 2010 and no changes noted. 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 Patient is followed by neurology here and cardiology [place] [facility] [place]. Patient reports that today, around 11 AM, he became slightly lightheaded when he was working in the yard. States that after sitting and resting this seemed to worsen and he reports some mild chest discomfort and shortness of breath. He then laid down and took a nap. When he awoke, his symptoms had improved but he noted cloudiness in the left eye. Patient is quite adamant that this was in the left eye. However, on visual acuity exam, patient is noted to have 20/ 20 bilaterally, 20/25 in the left and 20/100 in the right. Reports that he has been seen by ophthalmology since his TBI as he had noted visual changes. Was unaware of the acute difference between the 2 eyes. At the time of evaluation, patient reports that his symptoms have resolved. He reports that he is feeling at baseline. Neuro exam and cardiopulmonary exam are without acute abnormalities. If these symptoms are recurrent, have low concern for pulmonary embolism although the patient was endorsing some mild chest discomfort and shortness of breath. Will obtain d-dimer. Will obtain EKG , head CT for stroke protocol given the visual changes, laboratory evaluation. Discussed the plan with the patient. We will also attempt to contact his screen printing machine loader unloader was accessed to the alarm security or surveillance monitor he has gone to see if we can find a diagnosis linked to this time of the syncopal episode. Laboratory evaluation significant for elevated d-dimer 683. Will obtain CT for PE protocol. EKG reviewed by Dr. Rodriguez. NSR, rate 71. No acute ischemic changes noted. Patient does appear dry, will continue with hydration No acute intracranial process is noted per radiologist on CT. Spoke with Dr. Hedrick with cardiology. I was questioning if he may review the findings of the event monitor at this time so we can know if he had an arrhythmia leading to his lightheadedness and symptoms. He advised at this point he is unable to see this. Would be able to review this tomorrow. I attempted to review the cell phone like device that comes with it but I am unable to back this up at all, and only able to see that the device is actively connected and working appropriately. He advised that his symptoms sound more consistent with a TIA. I have discussed this concern with a TIA with the patient and his initially regarding the cloudy vision which is since resolved. Normal, his multiple syncopal episodes over the past year does not sound consistent with TIA. His episodes of often occurred in different positions, different levels of exertion and unprovoked. , who is a nurse, has not noted him to be postictal after these episodes but does report that he has been very fatigued and often needs a nap after these episodes. Will consult with neurology. Consulted with Dr. You regarding patient's symptoms. She advised that given the location of the brief cloudiness this is not consistent with a TIA. She advised was a TIA he would have had bilateral symptoms which he did not. She also felt that if the eye itself is having ischemia he would have had visual loss not blurred vision. We did discuss other etiologies such as optic neuritis but this is unlikely given the brief episode that occurred and that he was at baseline prior to arrival. We did discuss the patient's history of syncopal episodes and the events associated with them. She advised the patient should have follow-up with her. Is asking MRI and EEG be ordered outpatient. Also requested sleep study as she was concerned for possible obstructive sleep apnea. However, patient reports he did have a sleep study completed last night , results are not yet known. Discussed this with the patient and his and discussed her recommendations. He does have upcoming appointment with cardiology. He will contact them tomorrow to discuss event monitor further. We did discuss inpatient versus outpatient options. However, as this seems to be a very chronic issue, with no acute changes today, and it is not thought to be a TIA that caused his symptoms at this time, patient may return home with close outpatient follow-up. I have asked her managed care coordinator help facilitate follow-up with Dr. You in the past along the outpatient order she has requested. He was given strict return precautions. Lives locally with his and is able to return immediately. Patient is Disha made the decision that he is not driving and he has not done so since the onset of his symptoms. All of his questions and concerns were addressed and he is in agreement with this plan. HPI General Mode of arrival: ambulatory . Date/Time Provider Initiated Documentation: 07/25/18 13:01 . Limitations to Documentation: no limitations . Information obtained by: patient and family . History of Present Illness 63 year old M presents to the emergency department with the chief complaint of lightheaded, described as moderate, Patient started experiencing this hour(s ) (1.5 hours prior to arrival) and it has been intermittent (has been intermittent for the past year). No exacerbating factors reported . Patient notes chest pain (reports that he had small amount of chest pain while lightheaded, this is since resolved) and shortness of breath (reports mild SOB while experiencing lightheadedness, this is isince resolved); denies cough, diaphoresis, fever/chills, headaches, loss of appetite, malaise, nausea/vomiting , rash and syncope (has had multiple episodes of syncope, none today. Last was prior to last visit a few weeks ago). Patient did receive the following treatments prior to arrival, none Related Data Home Medications Medication Instructions Recorded Confirmed aspirin 81 mg tablet,delayed 81 mg PO DAILY 05/31/18 07/25/18 release cetirizine 10 mg capsule 10 mg PO DAILY cap 05/31/18 07/25/18 glipizide 10 mg tablet 10 mg PO BID 05/31/18 07/25/18 hydrochlorothiazide 25 mg tablet 25 mg PO DAILY 05/31/18 07/25/18 insulin glargine (U-100) 100 40 unit SC HS ml 05/31/18 07/25/18 unit/mL (3 mL) subcutaneous pen lisinopril 20 mg tablet 20 mg PO BID 05/31/18 07/25/18 metformin 1,000 mg tablet 1,000 mg PO BID 05/31/18 07/25/18 metoprolol succinate ER 100 mg 50 mg PO DAILY 05/31/18 07/25/18 tablet,extended release 24 hr nitroglycerin 0.4 mg sublingual 0.4 mg SL ONCE 05/31/18 07/25/18 tablet pen needle, diabetic 32 gauge x #10 each 05/31/18 06/16/18 zolpidem ER 6.25 mg 6.25 mg PO ONCE PRN 05/31/18 07/25/18 tablet,extended release,multiphase bupropion HCl XL 150 mg 24 hr 150 mg PO QAM #90 tab 07/11/18 07/25/18 tablet, extended release Previous Rx's Medication Instructions Recorded bupropion HCl XL 150 mg 24 hr 150 mg PO QAM #90 tab 07/11/18 tablet, extended release Allergies Allergy/AdvReac Type Severity Reaction Status Date / Time HMG-CoA REDUCTASE INHIBITORS AdvReac Intermediate MYALGIA Uncoded 07/25/18 15:12 General Stated Complaint: Dizzy/Sync RADHA: 2 Review of Systems Constitutional Reports as per HPI and Denies headache(s) Eyes Reports as per HPI, Reports change in vision (endorses cloudiness in the left eye which has since resolved) and Denies loss of vision (change in vision, no loss of vision) ENT Denies abnormal hearing, Denies vertigo, Reports dizziness and Denies headache(s ) Cardiovascular Reports as per HPI and Denies syncope (has had multiple syncopal episodes historically, no syncope today) Respiratory Reports as per HPI Gastrointestinal Denies abdominal pain, Denies nausea and Denies vomiting Genitourinary Denies system reviewed and no additional complaints, except as docu (denies any change in urinary habits) Musculoskeletal Reports as per HPI, Denies abnormal gait, Denies back pain and Denies numbness Integumentary/Breasts Reports as per HPI and Denies rash Neurologic Reports as per HPI, Denies abnormal hearing, Denies abnormal movements, Denies abnormal speech, Denies abnormal gait, Denies vertigo, Reports dizziness, Denies syncope (has had multiple syncopal episodes historically, no syncope today), Denies headache(s), Denies loss of vision (change in vision, no loss of vision), Denies memory loss, Denies numbness and Denies radicular pain Psychiatric Denies memory loss PFSH Family History Mother Essential hypertension Cerebrovascular accident Father CAD (coronary artery disease) Liver cancer Sister No problems noted. Brother No problems noted. Son No problems noted. Son No problems noted. 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) Diverticulosis (Acute 07/28/16) Depression (Acute 03/17/13) ADHD (attention deficit hyperactivity disorder) DM (diabetes mellitus) Essential hypertension WERNER (obstructive sleep apnea) Social History household members: other pets and animals: Yes pets and animals: cat(s) and dog(s) frequency: 3-4 times per week duration: 15-30 minutes/day Smoking/Tobacco Use Status: Former Tobacco Use second hand exposure: No alcohol intake: current alcohol intake frequency: a few times a month substance use type: does not use jason/bahai: [employer] special jason needs: No Surgical History Arthroplasty of knee Colonoscopy - MAC (07/28/16) Rotator Cuff Repair Exam Const General: cooperative, healthy appearing, comfortable, no acute distress, well developed and well groomed Nutritional Appearance: average body habitus and well nourished Orientation: alert, awake and oriented x3 HENMT Head: normal to inspection, no palpable skull fracture, normocephalic and atraumatic Ears: hearing grossly normal bilaterally, external ears normal and TM's normal bilaterally General nose exam: external nose normal and nares normal Face and sinus: normal facial exam and sinuses nontender Mouth: oral mucosae normal, lip normal, tongue normal, oropharynx normal and no muffled voice Throat: posterior oropharynx normal Eyes General: appearance normal, both eyes and all related structures Alignment and Position: alignment normal Periorbital: periorbital findings normal Eyelids: eyelids normal Conjunctivae: conjunctivae normal Sclera: sclerae normal Pupils: PERRL EOM: EOM intact bilaterally and No nystagmus Neck Neck: normal visual inspection, full ROM, no lymphadenopathy and nontender Resp Effort & Inspection: normal respiratory effort, able to speak in complete sentences and no respiratory distress Auscultation: clear to auscultation bilaterally, no rales, no rhonchi and no wheezes Cardio Rate: regular rate Rhythm: regular rhythm Heart Sounds: S1 normal and S2 normal GI Inspection: normal to inspection and abdominal wall ecchymosis Palpation: soft, no hepatosplenomegaly, no aortic enlargement, not firm, no guarding, not rigid and nontender Auscultation: normal bowel sounds Skin General skin exam: no rashes or lesions noted Trauma: no lacerations or abrasions Neuro General: alert, awake, oriented x3, gait normal, tone normal, moves all extremities, no meningeal signs, no focal motor deficits, CN's II-XI intact bilaterally and deep tendon reflexes 2+ bilaterally Cranial Nerves: CN's II-XI intact bilaterally, PERRL, accommodation normal, EOM intact bilaterally, no nystagmus, facial strength normal, tongue midline, hearing normal, able to rotate head bilaterally, able to elevate shoulders bilaterally and no nystagmus Cognition: normal cognition Speech: speech normal Gait: normal gait Motor: muscle tone normal throughout, strength 5/5 throughout, no pronator drift , no movement abnormalities noted and no fasciculations Sensory Exam: no sensory deficits noted Plantar Reflexes: Downgoing: bilateral Coordination: [id number] test normal, [id number] test normal and rapid alternating movement LE normal Extrem General: normal to inspection, full ROM, no pedal edema and no calf tenderness Psych Appearance: grossly normal and well kempt Mental Status: mental status grossly normal Speech and Movement: speech and movement normal Course Vital Signs Temperature 36.3 C L 07/25/18 13:00 Pulse 72 07/25/18 13:00 Respiratory Rate 20 07/25/18 13:00 Blood Pressure 126/69 07/25/18 13:00 Pulse Oximetry 96 07/25/18 13:00 Temperature 36.3 C L 07/25/18 13:00 Pulse 72 11/04/18 13:00 Respiratory Rate 20 07/25/18 13:00 Respiratory Effort 07/25/18 13:06 Blood Pressure 126/69 07/25/18 13:00 Pulse Oximetry 96 07/25/18 13:00 Oxygen Delivery Method Room Air 07/25/18 13:00 Oxygen Flow Rate 0 07/25/18 13:00 Lab/Test Results Lab/Test Results: Laboratory Tests Range/Units 07/25/18 07/25/18 07/25/18 13:05 13:05 13:05 WBC (4.4-10.8) k/cumm 8.69 RBC (4.50-6.00) m/cumm 4.50 Hgb (13.5-17.5) g/dL 13.8 Hct (40.0-50.0) % 41.0 MCV (80-95) fL 91.1 MCH (27.0-33.0) pg 30.7 MCHC (32.0-36.0) g/dL 33.7 RDW (11.8-14.1) % 13.0 Plt Count (130-400) x1000/uL 275 MPV (8.0-11.0) fL 9.8 Immature Gran % 0.5 Neutrophils % 64.8 Lymphocytes % 23.8 Monocytes % 5.9 Eosinophils % 4.7 Basophils % 0.3 Absolute Neutrophils (1.2-6.7) k/cumm 5.63 Absolute Lymphocytes (1.2-3.4) k/cumm 2.07 Absolute Monocytes (0.11-0.7) k/cumm 0.51 Absolute Eosinophils (0.0-0.7) k/cumm 0.41 Absolute Basophils (0.0-0.2) k/cumm 0.03 PT (9.3-10.8) sec 9.3 INR (1.0-3.5) 1.0 APTT (21.0-31.4) sec 25.5 Sodium (136-145) mmol/L 138 Potassium (3.5-5.1) mmol/L 4.3 Chloride (98-107) mmol/L 101 Carbon Dioxide (21.0-32.0) mmol/L 26.5 Anion Gap (3-11) mmol/L 10.5 BUN (7-18) mg/dL 38 H Creatinine (0.70-1.30) mg/dL 1.32 H Estimated GFR/1.73 m2 (mL/min/1.73m2) 54.43 Glucose (70-100) mg/dL 343 H Calcium (8.5-10.1) mg/dL 9.1 Magnesium (1.8-2.4) mg/dL 1.9 Total Bilirubin (0.2-1.0) mg/dL 0.2 AST (15-37) U/L 15 ALT (12-78) U/L 42 Alkaline Phosphatase (46-116) U/L 100 Troponin I (0.00-0.06) ng/mL < 0.02 Total Protein (6.4-8.2) g/dL 7.0 Albumin (3.4-5.0) g/dL 3.4 TSH (0.358-3.74) uIU/mL 2.20
[2018-07-25 14:00] LABS: Bilirubin Negative (Negative); Blood Negative (Negative); Clarity Clear; Glucose 500 mg/dL (Negative); Ketones Negative (Negative); Leukocyte Esterase Negative (Negative); Nitrite Negative (Negative); Specific Gravity 1.015 (1.005-1.025); Urobilinogen 0.2 EU/dL (Up TO 0.2); pH 5.5 (5-8)
--- NOTE | 2018-07-25 14:03 | DI.VRAD_ITS ---
EXAM: CT Head Without Intravenous Contrast EXAM DATE/TIME: 07/25/2018 1:25 PM CLINICAL HISTORY: 63 years old, male; Signs and symptoms; Other: Clouded vision left eye after TECHNIQUE: Axial computed tomography images of the head/brain without intravenous contrast. All CT scans at this facility use at least one of these dose optimization techniques: automated exposure control; mA and/or kV adjustment per patient size (includes targeted exams where dose is matched to clinical indication); or iterative reconstruction. Coronal and sagittal reformatted images were created and reviewed. COMPARISON: CT HEAD WITHOUT CONTRAST 05/12/2018 10:43 AM FINDINGS: No evidence of hemorrhage. No mass effect. No acute intracranial abnormality. Left orbit unremarkable. IMPRESSION: No evidence of acute intracranial process. Dictated and Authenticated by: Homero Herndon MD. Ordering:HANNAH PROCTOR MD
[2018-07-25 14:14] LABS: D-Dimer 683 ng/mlFEU (<500)
--- NOTE | 2018-07-25 14:59 | DI.CT_ITS ---
SYMPTOM/DIAGNOSIS: CP, SOB WITH ELEVATED D-DIMER CT CHEST: CT scan of the chest was performed according to the pulmonary embolus protocol. There is no evidence of a pulmonary embolus. The thoracic aorta is of normal caliber. No aneurysmal dilatation or dissection is seen. Heart size is within normal limits. No significant pericardial effusion is seen. No findings to suggest right ventricular dysfunction are present. No significant mediastinal or hilar adenopathy, pleural effusion or pneumothorax is identified. The lungs show no focal consolidating infiltrates seen.There is scarring seen in the right lower lobe. Dependent atelectatic changes are seen in the lungs. The tracheobronchial tree is unremarkable. The bones are intact. IMPRESSION: No evidence of pulmonary embolus, thoracic aortic dissection or aneurysm.
[2018-07-25] MEDS: Normal Saline 1,000 ML 500 ML IV (15:11)
[2018-07-25] MEDS: Omnipaque 350 MG/ML 100 ML BTL IJ (16:42)
--- NOTE | 2018-07-25 16:55 | DI.VRAD_ITS ---
EXAM: CT Angiography Chest With Intravenous Contrast EXAM DATE/TIME: 07/25/2018 3:01 PM CLINICAL HISTORY: 63 years old, male; Pain and signs and symptoms; Shortness of breath; Chest pain; Type not specified; Patient HX: Elevated d-dimer TECHNIQUE: Axial computed tomographic angiography images of the chest with intravenous contrast using CT angiography protocol. All CT scans at this facility use at least one of these dose optimization techniques: automated exposure control; mA and/or kV adjustment per patient size (includes targeted exams where dose is matched to clinical indication); or iterative reconstruction. Coronal and sagittal reformatted images were created and reviewed. MIP reconstructed images were created and reviewed. CONTRAST: 100 ml of Omnipaque 350 administered intravenously. COMPARISON: CT CHEST FOR PULMONARY EMBOLUS 07/13/2017 12:52 PM FINDINGS: No evidence of PE. Minimal interstitial scarring. No significant focal consolidation. No pleural effusion. No pneumothorax. No adenopathy. Unremarkable upper abdomen. No acute mediastinal or aortic abnormality. IMPRESSION: No specific etiology identified for the patient's symptoms. Dictated and Authenticated by: Homero Herndon MD. Ordering:HANNAH PROCTOR MD
--- NOTE | 2018-07-29 14:01 | PDOC.ERCMPRO ---
Care Management Progress Note EUSEBIO spoke with Markell's , Shobha who reported concerns around post ED visit planning. EUSEBIO spoke with Deborah Hillman who reported Markell would be seeing Dr. Ivory on 08/02/[address] Venegas on 08/05/18-Deborah also reported Dr. Venegas had ordered MRI and EEG as she would need the results prior to her appointment with Markell. Deborah reported she anticipated [facility] would be following up with Markell for appointments. Deborah reported she would follow up with Dr. Ivory and the patient as well.
== END 2018-07-25 18:04 | disposition home or self-care (01) ==
PROVIDERS: Emergency Provider Physician Assistant; PCP Family Medicine
DX: R55 Syncope and collapse (principal); H53.8 Other visual disturbances; R07.9 Chest pain, unspecified; Z87.820 Personal history of traumatic brain injury; R79.1 Abnormal coagulation profile; E11.9 Type 2 diabetes mellitus without complications; Z79.4 Long term (current) use of insulin; I10 Essential (primary) hypertension
CPT/HCPCS: 36415; 71275; 80053; 93005; 96360; 96361; 99285; 70450; 81003; 83735; 84443; 84484; 85025; 85379; 85610; 85730; 93010; J3490

== ENCOUNTER 2018-08-02 00:53 | Outpatient (CLI) | payer OTHER, SELFPAY ==
--- NOTE | 2018-08-02 14:15 | DI.MRI_ITS ---
SYMPTOM/DIAGNOSIS: BLACKOUT SPELL, SYNCOPE VS SEIZURE R55 MRI BRAIN: Routine noncontrast examination was performed. Comparison CT 07/25/18, comparison is 03/25/15. The ventricles and sulci are consistent with the patient's age. There is an old lacunar infarct adjacent to the left lateral ventricle. This has been present on prior CT scans and appears stable. The diffusion weighted images show no evidence of an acute infarct. No intracranial hemorrhage is seen. The ventricles are intact. The basilar cisterns are patent. No acute midline shift or mass effect is identified. There is a normal flow void present in the [place] of [place]. The pituitary gland appears grossly unremarkable. The visualized paranasal sinuses are clear. IMPRESSION: No acute abnormality.
== END 2018-08-02 01:13 ==
PROVIDERS: PCP Family Medicine; Visit Provider Psychiatry & Neurology Neurology
DX: R55 Syncope and collapse (principal); I63.9 Cerebral infarction, unspecified; R40.4 Transient alteration of awareness
CPT/HCPCS: 70551

== ENCOUNTER 2018-08-03 01:37 | Outpatient (CLI) | payer OTHER, SELFPAY ==
--- NOTE | 2018-08-03 15:48 | PDOC.EEG ---
EEG: [facility] Department of Neurology EEG REPORT Date of Recordin08/03/18 Interpreting Physician: Dr. Estrellita Snyder PCP/Referring Provider: Dr. Lerner Reason for study: Mr. Briones is a 63 year-old man with a history of pre-syncope and syncopal episodes with an extensive negative cardiac work-up concerning for seizure. Current Medications: aspirin 81 mg tablet,delayed release 81 mg PO DAILY 05/31/18 cetirizine 10 mg capsule 10 mg PO DAILY cap 05/31/18 glipizide 10 mg tablet 10 mg PO BID 05/31/18 hydrochlorothiazide 25 mg tablet 25 mg PO DAILY 05/31/18 insulin glargine (U-100) 100 unit/mL (3 mL) subcutaneous pen 40 unit SC HS ml 05/31/18 lisinopril 20 mg tablet 20 mg PO BID 05/31/18 metformin 1,000 mg tablet 1,000 mg PO BID 05/31/18 metoprolol succinate ER 100 mg tablet,extended release 24 hr 50 mg PO DAILY 05/31/18 nitroglycerin 0.4 mg sublingual tablet 0.4 mg SL ONCE 05/31/18 pen needle, diabetic 32 gauge x 5/32 #10 each 05/31/18 zolpidem ER 6.25 mg tablet,extended release,multiphase 6.25 mg PO ONCE PRN 05/31/18 bupropion HCl XL 150 mg 24 hr tablet, extended release 150 mg PO QAM #90 tab 07/11/18 flu vacc [id number] (36 mos up)(PF)60 mcg (15 mcg x4)/0.5 mL IM syringe 60 mcg IM ONCE #0.5 ml 08/02/18 METHODS: A 21 channel digitized electroencephalogram was performed in the [facility]iology Laboratory. The 10/20 international system of electrode placement was used and bipolar and referential electrode montages were recorded. In addition to EEG the patient was monitored for EKG and lateral/vertical eye movements. Activation procedures of photic stimulation and hyperventilation were performed if applicable. Video was used during activation procedures and during events where applicable. The duration of the recording was 30 minutes. DESCRIPTION OF EEG: The patient was noted to be awake, drowsy, and asleep during the recording. During maximal wakefulness a 10-Hz posterior background rhythm was present which was well-modulated, symmetrical, reactive to eye opening, and of moderate voltage. With eye opening the background activity changed to a low voltage mixture of alpha, beta, and occasional theta range frequencies. Faster frequencies were present in the bilateral anterior head regions. There was a normal anterior-posterior voltage gradient. During drowsiness, there was attenuation of the posterior dominant background rhythm and vertex waves. Stage II sleep was present with symmetrical sleep spindles, K-complexes, and vertex waves. Activating Procedures: Photic stimulation was performed which produced a symmetrical posterior driving response at various flash frequencies. Hyperventilation was not performed. EKG: EKG revealed normal sinus rhythm. INTERPRETATION: This EEG is normal during the awake and asleep states as well as during photic stimulation and hyperventilation. PRIOR EEG: none CLINICAL CORRELATION: No focal regions of cerebral dysfunction or epileptiform activity was present. Epilepsy remains a clinical diagnosis and a normal EEG does not rule out epilepsy. Clinical correlation is advised. Estrellita Snyder MD
== END 2018-08-03 01:57 ==
PROVIDERS: PCP Family Medicine; Visit Provider Psychiatry & Neurology Neurology
DX: R55 Syncope and collapse (principal)
CPT/HCPCS: 95819

== ENCOUNTER 2019-01-27 11:52 | Outpatient (CLI) | payer OTHER, SELFPAY ==
--- NOTE | 2019-01-27 10:45 | DI.RAD_ITS ---
SYMPTOM/DIAGNOSIS: RT WRIST PAIN RIGHT WRIST: Five views were obtained. There are minimal degenerative changes of the joints of the carpus. Carpal alignment appears within normal limits. No other significant abnormality is seen.
== END 2019-01-27 12:12 ==
PROVIDERS: PCP Family Medicine; Visit Provider Physician Assistant
DX: S69.91XA Unspecified injury of right wrist, hand and finger(s), initial encounter (principal); M25.531 Pain in right wrist
CPT/HCPCS: 73110

== ENCOUNTER 2019-02-08 07:44 | Outpatient (CLI) | payer OTHER, SELFPAY ==
[2019-02-08 08:47] LABS: Hemoglobin A1C 9.3 % (4.5-6.2)
[2019-02-08 09:22] LABS: ALT 33 U/L (12-78); AST 16 U/L (15-37); Albumin 3.5 g/dL (3.4-5.0); Alkaline Phosphatase 90 U/L (46-116); Anion Gap 11.8 mmol/L (3-11); BUN 27 mg/dL (7-18); Bilirubin, Total 0.2 mg/dL (0.2-1.0); CO2 25.2 mmol/L (21.0-32.0); CREATININE 1.28 mg/dL (0.70-1.30); Calcium 8.9 mg/dL (8.5-10.1); Chloride 105 mmol/L (98-107); Cholesterol 186 mg/dL (50-200); Glucose 159 mg/dL (70-100); HDL Cholesterol 32 mg/dL (40-60); LDL CHOLESTEROL 124 mg/dL (<100); Potassium 4.7 mmol/L (3.5-5.1); Sodium 142 mmol/L (136-145); Total Protein 6.7 g/dL (6.4-8.2); Triglyceride 151 mg/dL (30-150)
== END 2019-02-08 08:04 ==
PROVIDERS: PCP Nurse Practitioner Family; Visit Provider Nurse Practitioner Family
DX: E11.9 Type 2 diabetes mellitus without complications (principal); E78.5 Hyperlipidemia, unspecified; I10 Essential (primary) hypertension
CPT/HCPCS: 36415; 80053; 80061; 83721; 83036

== ENCOUNTER 2019-03-17 14:08 | Outpatient (REF) | payer OTHER, SELFPAY ==
[2019-03-17 21:22] LABS: COMMENT (LAB VIEW ONLY) 80.97 mg/dL; Microalb ug/mg Crea 13.7 ug/mg Cr
== END 2019-03-17 14:28 ==
LOC: NCHCN 14:08
PROVIDERS: PCP Nurse Practitioner Family; Visit Provider Nurse Practitioner Family
DX: R81 Glycosuria (principal)
CPT/HCPCS: 82043; 82570

== ENCOUNTER 2019-05-14 10:00 | Outpatient (CLI) | payer OTHER, SELFPAY ==
[2019-05-14 11:54] LABS: Anion Gap 8.6 mmol/L (3-11); BUN 39 mg/dL (7-18); CO2 28.4 mmol/L (21.0-32.0); CREATININE 1.61 mg/dL (0.70-1.30); Calcium 9.3 mg/dL (8.5-10.1); Chloride 107 mmol/L (98-107); Estimated GFR 43.15 (mL/min/1.73m2); Glucose 208 mg/dL (70-100); Potassium 5.4 mmol/L (3.5-5.1); Sodium 144 mmol/L (136-145)
[2019-05-15 10:28] LABS: Hemoglobin A1C 9.5 % (4.5-6.2)
== END 2019-05-14 10:20 ==
PROVIDERS: PCP Nurse Practitioner Family; Visit Provider Nurse Practitioner Family
DX: E11.9 Type 2 diabetes mellitus without complications (principal)
CPT/HCPCS: 36415; 80048; 83036

== ENCOUNTER 2019-05-16 10:00 | Outpatient (CLI) | payer OTHER, SELFPAY ==
[2019-05-16 12:34] LABS: HCT 45.1 % (40.0-50.0); HGB 14.6 g/dL (13.5-17.5); Mean Corp. HGB Concentration 32.4 g/dL (32.0-36.0); Mean Corpuscular Hemoglobin 30.2 pg (27.0-33.0); Mean Corpuscular Volume 93.4 fL (80-95); Mean Platelet Volume 10.9 fL (8.0-11.0); Platelet Count 259 x1000/uL (130-400); RBC 4.83 m/cumm (4.50-6.00); RBC Distribution Width 13.1 % (11.8-14.1); White Blood Cell Count 8.24 k/cumm (4.4-10.8)
[2019-05-16 12:57] LABS: ALT 39 U/L (16-63); AST 14 U/L (15-37); Albumin 3.8 g/dL (3.4-5.0); Alkaline Phosphatase 91 U/L (46-116); Anion Gap 13.2 mmol/L (3-11); BUN 42 mg/dL (7-18); Bilirubin, Total 0.3 mg/dL (0.2-1.0); CO2 24.8 mmol/L (21.0-32.0); CREATININE 1.64 mg/dL (0.70-1.30); Calcium 9.3 mg/dL (8.5-10.1); Chloride 102 mmol/L (98-107); Estimated GFR 42.24 (mL/min/1.73m2); Glucose 201 mg/dL (70-100); Potassium 5.2 mmol/L (3.5-5.1); Sodium 140 mmol/L (136-145); Total Protein 7.2 g/dL (6.4-8.2)
[2019-05-16 12:58] LABS: Hemoglobin A1C 9.3 % (4.5-6.2)
== END 2019-05-16 10:20 ==
PROVIDERS: PCP Nurse Practitioner Family; Visit Provider Nurse Practitioner Family
DX: E11.9 Type 2 diabetes mellitus without complications (principal)
CPT/HCPCS: 36415; 80053; 85027; 83036

== ENCOUNTER 2019-06-14 08:13 | Outpatient (CLI) | payer OTHER, SELFPAY ==
[2019-06-14 10:07] LABS: ALT 28 U/L (16-63); AST 10 U/L (15-37); Albumin 3.7 g/dL (3.4-5.0); Alkaline Phosphatase 91 U/L (46-116); Anion Gap 9.9 mmol/L (3-11); BUN 30 mg/dL (7-18); Bilirubin, Total 0.3 mg/dL (0.2-1.0); CO2 26.1 mmol/L (21.0-32.0); CREATININE 1.28 mg/dL (0.70-1.30); Chloride 106 mmol/L (98-107); Estimated GFR 56.23 (mL/min/1.73m2); Glucose 151 mg/dL (70-100); Potassium 4.8 mmol/L (3.5-5.1); Sodium 142 mmol/L (136-145); Total Protein 6.9 g/dL (6.4-8.2)
== END 2019-06-14 08:33 ==
PROVIDERS: PCP Nurse Practitioner Family; Visit Provider Nurse Practitioner Family
DX: E11.9 Type 2 diabetes mellitus without complications (principal); N17.9 Acute kidney failure, unspecified; N18.9 Chronic kidney disease, unspecified
CPT/HCPCS: 36415; 80053

== ENCOUNTER 2019-11-10 08:07 | Outpatient (CLI) | payer OTHER, SELFPAY ==
[2019-11-10 08:41] LABS: Hemoglobin A1C 10.3 % (3.8-5.6)
== END 2019-11-10 08:27 ==
PROVIDERS: PCP Nurse Practitioner Family; Visit Provider Nurse Practitioner Family
DX: E11.9 Type 2 diabetes mellitus without complications (principal)
CPT/HCPCS: 36415; 83036

== ENCOUNTER 2019-12-20 09:16 | Outpatient (CLI) | payer OTHER, SELFPAY ==
[2019-12-23 04:37] LABS: SARS-CoV-2 RNA Undetected (Undetected); SARS-CoV-2 Specimen Source Nasopharynx
== END 2019-12-20 09:36 ==
PROVIDERS: PCP Nurse Practitioner Family; Visit Provider Nurse Practitioner Family
DX: Z20.828 Contact with and (suspected) exposure to other viral communicable diseases (principal)
CPT/HCPCS: U0003

== ENCOUNTER 2020-02-17 09:41 | Outpatient (CLI) | payer OTHER, SELFPAY ==
[2020-02-17 18:02] LABS: ALT 44 U/L (16-63); AST 20 U/L (15-37); Albumin 3.7 g/dL (3.4-5.0); Alkaline Phosphatase 96 U/L (46-116); Anion Gap 4.7 mmol/L (3-11); BUN 24 mg/dL (7-18); Bilirubin, Total 0.3 mg/dL (0.2-1.0); CO2 30.3 mmol/L (21.0-32.0); Calcium 9.1 mg/dL (8.5-10.1); Calculated LDL 124 mg/dL (<100); Chloride 100 mmol/L (98-107); Cholesterol 208 mg/dL (<200); Glucose 143 mg/dL (74-106); HDL Cholesterol 34 mg/dL (40-60); Potassium 4.5 mmol/L (3.5-5.1); Sodium 135 mmol/L (136-145); Triglyceride 251 mg/dL (<150)
[2020-02-17 18:48] LABS: Hemoglobin A1C 9.7 % (3.8-5.6)
== END 2020-02-17 10:01 ==
PROVIDERS: PCP Nurse Practitioner Family; Visit Provider Nurse Practitioner Family
DX: E11.9 Type 2 diabetes mellitus without complications (principal)
CPT/HCPCS: 36415; 80053; 80061; 83036

== ENCOUNTER 2020-05-25 09:46 | Outpatient (CLI) | payer OTHER, SELFPAY ==
[2020-05-27 06:41] LABS: Patient Race White; SARS-CoV-2 RNA Undetected (Undetected); SARS-CoV-2 Specimen Source Nasopharynx
== END 2020-05-25 10:06 ==
PROVIDERS: PCP Nurse Practitioner Family; Visit Provider Physician Assistant
DX: B34.9 Viral infection, unspecified (principal)
CPT/HCPCS: U0003

== ENCOUNTER 2020-05-28 20:01 | Emergency (ER) | payer OTHER, SELFPAY ==
[2020-05-28 20:09] VITALS: BP 175/80; PULSE 76; RESP 16; TEMP 36.6; O2SAT 99
[2020-05-28] MEDS: Tetracaine 0.5% 4 ML BTL OP (20:22)
[2020-05-28] MEDS: Erythromycin Ophth Oint 3.5 GM TUBE OP (20:22)
[2020-05-28] MEDS: Fluorescein STRIPS 100/BOX 1 MG OP (20:22)
[2020-05-28] MEDS: Balanced Salt Solution 15 ML BTL OP (20:22)
--- NOTE | 2020-05-28 20:47 | W.ED.GENAD ---
Discharge Plan Disposition Patient Disposition: HOME Condition: Good Discharge Details Chief Complaint: EyeProblem Clinical Impression: Corneal abrasion, right Primary Care Provider: Ester Olivo ED Provider: Amy Diez Home Meds and New Rx's Prescriptions: New erythromycin 5 mg/gram (0.5 %) ointment 0.5 inch OP QID Qty: 1 RF: 0 Continued semaglutide 14 mg tablet 14 mg PO DAILY Qty: 90 RF: 4 insulin degludec 200 unit/mL (3 mL) insulin pen 48 unit SC QHS Qty: 8 RF: 4 aspirin [Adult Aspirin Regimen] 81 mg tablet,delayed release (DR/EC) 81 mg PO DAILY RF: 0 All Day Allergy (cetirizine) 10 mg capsule 10 mg PO DAILY RF: 0 chlorthalidone 25 mg tablet 25 mg PO DAILY Qty: 90 RF: 4 bupropion HCl 150 mg tablet extended release 24 hr 150 mg PO QAM Qty: 90 RF: 4 lisinopril 20 mg tablet 20 mg PO BID Qty: 180 RF: 4 metformin 1,000 mg tablet 1,000 mg PO BID Qty: 180 RF: 3 metoprolol succinate 50 mg tablet extended release 24 hr 50 mg PO DAILY Qty: 90 RF: 4 nitroglycerin 0.4 mg tablet, sublingual 0.4 mg SL ONCE PRN (Reason: chest pain) Qty: 30 RF: 0 (DME) pen needle, diabetic [BD Ultra-Fine Leah Pen Needle] 32 gauge x 5/32 needle See Dose Instructions .ROUTE .MEDSUPPLY Qty: 200 RF: 4 Discharge Instructions Instructions: Corneal Abrasion (ED) Additional Instructions: Apply erythromycin ophthalmic 4-5 times daily. Call your project architect tomorrow to schedule follow-up appointment for corneal abrasion Call or return sooner for any visual disturbances Your tetanus was updated on this visit Referrals: Ester Olivo, DRY KILN WORKER [Primary Care Provider] - Medical Decision Making I anesthetized using tetracaine with good effect. Exam shows no evidence of foreign body upper lid inverted. Pupils are equal and reactive EOMs are intact. Eye is stained with fluorescein which did show uptake at 9:00 with no bleeding. Erythromycin applied with instruction. Medical Records Medical records reviewed: Yes I reviewed the patient's medical records. HPI General Mode of arrival: ambulatory. Date/Time Provider Initiated Documentation: 05/28/20 20:08. Limitations to Documentation: no limitations. Information obtained by: patient. HPI Narrative: While sasha got struck in his right eye with a branch. Since then has had eye irritation photophobia. He denies any loss of vision. There is no drainage eye is red and irritated. Does not wear contacts, unknown last tetanus Related Data Home Medications Medication Instructions Recorded Confirmed aspirin 81 mg tablet,delayed 81 mg PO DAILY 05/31/18 05/28/20 release cetirizine 10 mg capsule 10 mg PO DAILY cap 05/31/18 05/28/20 bupropion HCl 150 mg 24 hr tablet, 150 mg PO QAM #90 tab 11/30/19 05/28/20 extended release lisinopril 20 mg tablet 20 mg PO BID #180 tab 11/30/19 05/28/20 metformin 1,000 mg tablet 1,000 mg PO BID #180 tab 11/30/19 05/28/20 metoprolol succinate 50 mg 50 mg PO DAILY #90 tab 11/30/19 05/28/20 tablet,extended release 24 hr nitroglycerin 0.4 mg sublingual 0.4 mg SL ONCE PRN #30 tab 11/30/19 05/28/20 tablet pen needle, diabetic 32 gauge x #200 each 11/30/19 04/26/20 semaglutide 14 mg tablet 14 mg PO DAILY #90 tab 03/02/20 05/28/20 chlorthalidone 25 mg tablet 25 mg PO DAILY #90 tab 03/22/20 05/28/20 insulin degludec 200 unit/mL (3 48 unit SC QHS #8 syringe 04/26/20 05/28/20 mL) subcutaneous pen erythromycin 0.5 inch OP QID #1 gm 05/28/20 Previous Rx's Medication Instructions Recorded bupropion HCl 150 mg 24 hr tablet, 150 mg PO QAM #90 tab 11/30/19 extended release lisinopril 20 mg tablet 20 mg PO BID #180 tab 11/30/19 metformin 1,000 mg tablet 1,000 mg PO BID #180 tab 11/30/19 metoprolol succinate 50 mg 50 mg PO DAILY #90 tab 11/30/19 tablet,extended release 24 hr nitroglycerin 0.4 mg sublingual 0.4 mg SL ONCE PRN #30 tab 11/30/19 tablet pen needle, diabetic 32 gauge x #200 each 11/30/19 semaglutide 14 mg tablet 14 mg PO DAILY #90 tab 03/02/20 chlorthalidone 25 mg tablet 25 mg PO DAILY #90 tab 03/22/20 insulin degludec 200 unit/mL (3 48 unit SC QHS #8 syringe 04/26/20 mL) subcutaneous pen erythromycin 0.5 inch OP QID #1 gm 05/28/20 Allergies Allergy/AdvReac Type Severity Reaction Status Date / Time HMG-CoA REDUCTASE INHIBITORS AdvReac Intermediate MYALGIA Uncoded 04/26/20 11:13 General Stated Complaint: EyeProblem RADHA: 4 Review of Systems All systems reviewed & are unremarkable except as noted in HPI and below Eyes Eyes: Denies change in vision, Denies eye discharge, Reports irritation, Denies loss of peripheral vision, Denies loss of vision, Reports eye pain and Reports photophobia Neurologic Neurologic: Denies loss of vision [facility] Medical History (Updated 05/28/20 @ 20:53 by Amy Diez NP) ADHD (attention deficit hyperactivity disorder) (Inactive) Allergic rhinitis (Inactive) Cerebrovascular accident (CVA) (Resolved) Silent, unknown when occurred but lacunar infarcts seen on head CTs as old as 2014 Coronary artery disease, non-occlusive (Chronic) Noted on cardiac cath at [facility] Depressive disorder (Chronic) Diverticulosis of colon (Inactive) Essential hypertension (Chronic) Fracture of right orbital floor (Resolved) Hyperlipidemia (Chronic) Insomnia (Chronic) Obesity (Chronic) Obstructive sleep apnea (Chronic) Pericarditis (Resolved) 2000 Post concussion syndrome (Resolved) Pulmonary arterial hypertension (Chronic) Syncope (Resolved) Tubular adenoma of colon (Resolved) Type 2 diabetes mellitus (Chronic) Surgical History H/O arthroscopy of left knee (Inactive) S/P colonoscopy (Acute 07/28/16) S/P right rotator cuff repair (Inactive 09/08/03) S/P trigger finger release (Inactive 09/06/04) Bilateral index fingers Family History Mother , at 59 Stroke Hypertension Father , at 58 CAD (coronary artery disease) Liver cancer Sister No problems noted. Brother No problems noted. Son No problems noted. Son No problems noted. Maternal Grandfather No problems noted. Maternal Grandmother No problems noted. Paternal Grandfather No problems noted. Paternal Grandmother No problems noted. Social History Smoking/Tobacco Use Status: Former Tobacco Use Quit Date: 09/20/85 Pack-years: 32 Tobacco: How many years used: 16 Second Hand Exposure: No Alcohol Intake: former Drug use: Never Substance use type: does not use Caregiver/Support person: No Household members: other Details: 3 Housing: house Communication Needs: None Pets and animals: Yes Pets and animals: cat(s) and dog(s) Sexually active: Yes Do you think of yourself as: straight/heterosexual Current gender identity: male What is your relationship status?: How often do you talk on the phone with friends or family?: three or more times per week How often do you get together with friends or relatives?: three or more times per week How often do you attend religion or baptist services?: decline to answer Do you belong to any clubs or organized social groups?: yes Panel score (0-1 are the most socially isolated patients): 3 What type of physical activity do you participate in: walking Duration: 15-30 minutes/day Frequency: 3-4 times per week Heidi/Muslim: Congregation Special heidi needs: No Seatbelt use: always Helmet use: Yes Helmet use: always Drive intox or ride w/intox passenger coach driver: No Do you feel safe at home: Yes Do you feel safe in your relationship?: Yes Exam Eyes Eyelids: eyelids normal Conjunctivae: conjunctivae normal Sclera: scleral abnormality right scleral injection Cornea: corneas normal and fluorescein used (Fluorescein uptake 9:00 right cornea, no foreign body on examination) Pupils: PERRL EOM: EOM intact bilaterally Direct ophthalmoscopy: no papilledema Eyes/upper lids images: 1. Fluorescein uptake Course Vital Signs Vital signs: Vital Signs Temperature 36.6 C 05/28/20 20:09 Pulse 76 05/28/20 20:09 Respiratory Rate 16 05/28/20 20:09 Blood Pressure 175/80 H 05/28/20 20:09 Pulse Oximetry 99 05/28/20 20:09 Temperature 36.6 C 05/28/20 20:09 Temperature Source Skin 05/28/20 20:09 Pulse 76 05/28/20 20:09 Respiratory Rate 16 05/28/20 20:09 Respiratory Effort 05/28/20 20:16 Blood Pressure 175/80 H 05/28/20 20:09 Blood Pressure Position Sitting 05/28/20 20:09 Pulse Oximetry 99 05/28/20 20:09 Oxygen Delivery Method Room Air 05/28/20 20:09 Oxygen Flow Rate 0 05/28/20 20:09 Pain Level 7 05/28/20 20:09
== END 2020-05-28 21:10 | disposition home or self-care (01) ==
PROVIDERS: Emergency Provider Nurse Practitioner Acute Care; PCP Nurse Practitioner Family
DX: S05.01XA Injury of conjunctiva and corneal abrasion without foreign body, right eye, initial encounter (principal); W20.8XXA Other cause of strike by thrown, projected or falling object, initial encounter; I10 Essential (primary) hypertension; E11.9 Type 2 diabetes mellitus without complications; Z79.4 Long term (current) use of insulin
CPT/HCPCS: 90471; 99284; 99283

== ENCOUNTER 2020-09-06 02:03 | Outpatient (CLI) | payer OTHER, SELFPAY ==
[2020-09-06 16:39] LABS: Hemoglobin A1C 10.2 % (<5.7)
== END 2020-09-06 02:23 ==
PROVIDERS: PCP Nurse Practitioner Family; Visit Provider Nurse Practitioner Family
DX: E11.9 Type 2 diabetes mellitus without complications (principal)
CPT/HCPCS: 83036

== ENCOUNTER 2020-09-07 17:43 | Outpatient (REF) | payer OTHER, SELFPAY | END 2020-09-07 18:03 | LOC: LBN 17:43 | PROVIDERS: PCP Nurse Practitioner Family; Visit Provider Nurse Practitioner Family | DX: E11.9 Type 2 diabetes mellitus without complications (principal) | CPT/HCPCS: 82043; 82570 ==

== ENCOUNTER 2020-11-14 02:55 | Outpatient (CLI) | payer OTHER, SELFPAY ==
[2020-11-14 11:17] LABS: Hemoglobin A1C 9.3 % (<5.7)
== END 2020-11-14 02:56 | disposition home or self-care (01) ==
LOC: LBO 02:55
PROVIDERS: PCP Nurse Practitioner Family; Visit Provider Nurse Practitioner Family
DX: E11.9 Type 2 diabetes mellitus without complications (principal)
CPT/HCPCS: 36415; 83036

== ENCOUNTER 2020-12-12 04:16 | Outpatient (CLI) | payer OTHER, SELFPAY ==
[2020-12-12 08:54] LABS: Hemoglobin A1C 9.1 % (<5.7)
[2020-12-12 09:26] LABS: ALT 52 U/L (16-63); AST 22 U/L (15-37); Albumin 3.6 g/dL (3.4-5.0); Alkaline Phosphatase 97 U/L (46-116); Anion Gap 7.3 mmol/L (3-11); BUN 25 mg/dL (7-18); Bilirubin, Total 0.2 mg/dL (0.2-1.0); CO2 31.7 mmol/L (21.0-32.0); CREATININE 1.3 mg/dL (0.70-1.30); Calcium 9.3 mg/dL (8.5-10.1); Calculated LDL 130 mg/dL (<100); Chloride 104 mmol/L (98-107); Cholesterol 209 mg/dL (<200); Estimated GFR 55.06 (mL/min/1.73m2); Glucose 174 mg/dL (74-106); HDL Cholesterol 33 mg/dL (40-60); Potassium 4.5 mmol/L (3.5-5.1); Sodium 143 mmol/L (136-145); Triglyceride 234 mg/dL (<150)
== END 2020-12-12 04:17 | disposition home or self-care (01) ==
LOC: LBO 04:16
PROVIDERS: PCP Nurse Practitioner Family; Visit Provider Nurse Practitioner Family
DX: E11.9 Type 2 diabetes mellitus without complications (principal)
CPT/HCPCS: 36415; 80053; 80061; 83036

== ENCOUNTER 2021-04-04 14:26 | Outpatient (CLI) | payer OTHER, SELFPAY ==
[2021-04-04 12:46] LABS: Abs Immature Grans 0.02 10^3/uL (0.0-0.06); Absolute Basophil Count 0.04 10^3/uL (0.0-0.2); Absolute Eosinophil Count 0.34 10^3/uL (0.0-0.7); Absolute Lymphocyte Count 2.13 10^3/uL (1.2-3.4); Absolute Monocyte Count 0.53 10^3/uL (0.1-0.8); Absolute Neutrophil Count 6.21 10^3/uL (1.2-6.7); Basophils % 0.4; Eosinophils % 3.7; HGB 14.2 g/dL (13.5-17.5); Immature Grans % 0.2; MCH 30.5 pg (27.0-33.0); MCV 92.5 fL (80-95); MPV 9.8 fL (8.0-11.0); Monocytes % 5.7; Nucleated RBC 0 %; Platelet Count 311 10^3/uL (130-400); RBC 4.65 10^6/uL (4.36-5.78); RDW 12.2 % (11.8-14.1); RDW-SD 41.3 fL; WBC 9.27 10^3/uL (4.4-10.8)
[2021-04-04 13:35] LABS: ALT 35 U/L (16-63); AST 11 U/L (15-37); Albumin 3.6 g/dL (3.4-5.0); Alkaline Phosphatase 89 U/L (46-116); Anion Gap 9.7 mmol/L (3-11); BUN 25 mg/dL (7-18); Bilirubin, Total 0.3 mg/dL (0.2-1.0); CO2 24.3 mmol/L (21.0-32.0); CREATININE 1.3 mg/dL (0.70-1.30); Calcium 9.3 mg/dL (8.5-10.1); Chloride 106 mmol/L (98-107); Ferritin 68 ng/mL (26-388); Glucose 126 mg/dL (74-106); Sodium 140 mmol/L (136-145); TSH (W/Ref FT4) 1.94 uIU/mL (0.36-3.74); Total Protein 6.9 g/dL (6.4-8.2)
--- OUTSIDE RECORDS SUMMARY | 2021-04-04 14:28 | XMS_ITS ---
:1955 Author Care Team Providers Name Role Phone [facility] MED[facility] RECORDS Primary Care Provider [phone] MICKY GIRARD MD Primary Care Provider [phone] MODE TAN [facility] Motor Builder Assembler [phone] [facility] OTHER [phone] Allergies Code Code System Name Reaction Severity Status Onset NKDA ? Medications Name Status Start Date Stop Date ? ? aspirin Active ? Not available 81mg daily bupropion HCl (bulk) Active ? Not availab le 150mg daily glipizide Active ? Not available 10mg BID hydrochlorothiazide Active ? Not availabl e 25mg daily insulin glargine Active ? Not available 40units at bedtime lisinopril Active ? Not available 30mg daily metformin Active ? Not available 1000mg BID metoprolol succinate Active ? Not availab le 100mg- 0.5 tabs daily nitroglycerin Active ? Not available 0.4mg Q5mins PRN zolpidem Active ? Not available 6.25mg at bedtime PRN Zyrtec 10 mg capsule Active ? Not availab le Take 1 capsule every day by oral route. Problems Name Status Onset Date Source ? Tubular Adenoma Active 07/02/2018 ? Type 2 Diabetes Mellitus Active 07/02/2018 ? Hyperlipidemia Active 07/02/2018 ? Obesity Active 07/02/2018 ? Depressive Disorder Active 07/02/2018 ? Attention Deficit Hyperactivity Disorder Active 018 ? Obstructive Sleep Apnea Syndrome Active 07/02/2018 ? Essential Hypertension Active 07/02/2018 ? Coronary Arteriosclerosis Active 07/02/2018 ? Pulmonary Hypertension Active 07/02/2018 ? Dysfunction of Right Cardiac Ventricle Active 8 ? Diverticulosis of Intestine Active 07/02/2018 ? Syncope Active 07/02/2018 ? History of Head Injury Active 07/02/2018 ? Procedures None recorded. Results Lab Results None recorded. Past Encounters 08/09/2020 Obstructive Sleep Apnea Syndrome Sandra Mosqueda, ASIC ENGINEER: [address] [place] [phone], Ph. Social History Tobacco Smoking Status Former Smoker Notes: quit at age 34 Vaccine List None recorded. Plan of Care Reminders Provider Appointments None ? ? recorded. Lab None ? ? recorded. Referral None ? ? recorded. Procedures None ? ? recorded. Surgeries None ? ? recorded. Imaging None ? ? recorded. Vitals 08/09/2020 11:15AM Office 30 Height Weight BMI Blood Pressure 185.42 cm 106.64 kg 31 kg/m2 136/72 mm[Hg] 08/19/2018 12:45PM Office 30 Height Weight BMI Blood Pressure 175.26 cm 111.08 kg 36.2 kg/m2 138/78 mm[Hg] 07/13/2018 08:30AM New Patient 43 Height Weight BMI Blood Pressure 175.26 cm 110.81 kg 36.1 kg/m2 132/82 mm[Hg]
[2021-04-05 10:47] LABS: Lyme Ab w Rflx to Lyme Confirm Negative (Negative)
[2021-04-05 17:56] LABS: Total Iron Binding Capacity 323 ug/dL (250-450)
[2021-04-05 19:51] LABS: Anaplasma phagocytophilum Negative (Negative); B. miyamotoi PCR Negative (Negative); Babesia divergens/MO-1 Negative (Negative); Babesia duncani Negative (Negative); Babesia microti Negative (Negative); Ehrlichia chaffeensis Negative (Negative); Ehrlichia ewingii/canis Negative (Negative); Ehrlichia muris eauclairensis Negative (Negative)
== END 2021-04-04 14:27 | disposition home or self-care (01) ==
LOC: LOS 14:26
PROVIDERS: PCP Nurse Practitioner Family; Visit Provider Nurse Practitioner Family
DX: R53.83 Other fatigue (principal)
CPT/HCPCS: 36415; 80053; 87798; 82728; 83550; 84443; 85025; 86618

== ENCOUNTER 2021-04-22 13:42 | Outpatient (CLI) | payer OTHER, SELFPAY ==
--- NOTE | 2021-04-22 13:15 | DI.RAD_ITS ---
Exam(s) XR FOOT LT COMPLETE EXAM: XR FOOT LT COMPLETE CLINICAL HISTORY: L foot pain. TECHNIQUE: 2D digital imaging was performed. COMPARISON: No exams were available for comparison FINDINGS: There is no evidence of fracture or diastasis of the Lisfranc joint. Bone density is normal. No oss eous lesions. No pes planus. 4 millimeter inferior calcaneal spur is noted There is no osseous tarsal coalition. IMPRESSION: DATA REPOSITORY: RADIATION DOSE DELIVERED:
== END 2021-04-22 13:43 | disposition home or self-care (01) ==
LOC: DIORS 13:43
PROVIDERS: PCP Nurse Practitioner Family; Referring Provider Nurse Practitioner Family; Visit Provider Physician Assistant
DX: M79.672 Pain in left foot (principal)
CPT/HCPCS: 73630

== ENCOUNTER 2021-05-16 01:27 | Outpatient (CLI) | payer OTHER, SELFPAY ==
--- NOTE | 2021-05-16 07:00 | DI.NM_ITS ---
APPROVED REPORT Exam: Pharmacologic Patient Location: Out-Patient Room/Bed: Stress Nurse: Alec Phoenix RN Ordering Provider:HAWA WHELAN, Contact Number: BMI: 30.34 Baseline Rhythm: Sinus Bradycardia Indications: fatigue, known CAD Medical History Medical History: CAD, WERNER, HLD, HTN, pulmonary artery HTN, depression, anxiety, obesity, CVA, pericar ditis, syncope, DM2 Cardiac Medications: semaglutide, SL Nitro, metoprolol succinate, metformin, lisinopril, insulin degl udec, chlorthalidone, ASA Allergies: HMG-CoA reductase inhibitors Cardiac Risk Factors: Family Hx, CVD, HTN, DM, Former Smoker, HLD, Obesity Previous Cardiac Procedures: LHC/RHC 2017 Pretest Chest Pain Characteristics: none Exercise History: Sedentary Physical Disabilities: none Lung Sounds: Clear to auscultation Heart Sounds: Regular Stress Test Details Test: Pharmacologic stress was paired with low level exercise. Nuclear Acquisition: Rest Tc-99m/Stress Tc-99m 1 day Rest Isotope: Tc-99m Sestamibi. Dose: 11 Date: 05/16/2021 Injection Time: 0900 Stress Isotope: Tc-99m Sestamibi. Dose: 37.8 Date: 05/16/2021 Injection Time: 1025 HR Resting HR Supine: 56 bpm Max Heart Rate (APMHR): 152 bpm Resting HR Standin bpm Target HR (85% APMHR): 129 bpm Max HR Achieved: 103 bpm % of APMHR: 67 Recovery HR: 67 bpm HR response to stress: Normal HR response to stress BP Resting BP Supine: 134/72 mmHg Resting BP Standin/70 mmHg Max BP: 150/74 mmHg Recovery BP: 130/72 mmHg BP response to stress: Normal blood pressure response to stress. ECG Resting ECG: Sinus Bradycardia Ectopy: none Stress ECG: Sinus Rhythm ST Change: No significant ST segment changes noted Arrhythmia: VPC's Comment: rare Recovery ECG: Sinus Rhythm Recovery ST Change: No significant ST segment changes noted Recovery Arrhythmia: none Clinical Reason for Termination: Fatigue Stress Symptoms: Dyspnea Exercise duration: 9 min59 sec Highest Stage Reached: Stage 2: 2.5 mph at 12% grade. Rate Pressure Product: [id number] Stress ECG Conclusion 1. Resting electrocardiogram showed poor R wave progression, possible old anterior infarct 2. Patient underwent exercise testing on the treadmill, as well as pharmacologic stress with regadeno son 3. Peak heart rate achieved was 67% of predicted for age 4. Electrocardiographically the test was nondiagnostic due to inadequate heart rate 5. Rare PVCs were seen Stress Test Summary STAGE Time (mins) Speed (mph) Grade (%) HR BP SYMPTOMS METS Supine 56 134/72 Standing 57 126/70 1 3 1.7 10 86 140/70 4.6 2 6 2.5 12 97 144/68 fatigue, hip pain 7 1 min post Lexiscan injection 98 150/74 none 3 min post Lexiscan injection 79 142/68 none 6 min post Lexiscan injection 67 130/72 none Transition from Kirt Protocol to walking Lexiscan performed at 0% grade, 2.5mph speed for patient fa tigue and physical limitation related to hips. MPI Conclusion Myocardial perfusion shows no significant myocardial ischemia, no evidence of prior infarction EF 53%
[2021-05-16] MEDS: Regadenoson 0.4 MG/5 ML SYR IVP (10:31)
== END 2021-05-16 01:47 ==
PROVIDERS: PCP Nurse Practitioner Family; Visit Provider Nurse Practitioner Family
DX: I25.10 Atherosclerotic heart disease of native coronary artery without angina pectoris (principal); R53.83 Other fatigue; Z82.49 Family history of ischemic heart disease and other diseases of the circulatory system; I10 Essential (primary) hypertension; E11.9 Type 2 diabetes mellitus without complications; Z87.891 Personal history of nicotine dependence; E78.5 Hyperlipidemia, unspecified; E66.09 Other obesity due to excess calories
CPT/HCPCS: 78452; 93017; J2785

== ENCOUNTER 2021-05-28 03:13 | Outpatient (CLI) | payer OTHER, SELFPAY ==
--- NOTE | 2021-05-28 07:15 | DI.CT_ITS ---
Exam(s) CT ABDOMEN PELVIS W EXAM: CT ABDOMEN PELVIS W CLINICAL HISTORY: pain LUQ with extreme fatigue,R10.12,R53.83. TECHNIQUE: Imaging Protocol: Axial computed tomography images with coronal and sagittal reformatted images were created and reviewed CONTRAST MATERIAL: Intravenous: Omnipaque 350 Contrast volume:100 ml Oral: yes CT,NM,TMT NM MPI REST STRESS GRP from 05/16/2021 FINDINGS: ABDOMEN: Lung Bases: Normal where visualized. Liver: Mild fatty infiltration.. No measurable mass. Gallbladder and biliary tract: No radiodense calculus or dilation. Pancreas: Normal density, no abnormal calcifications or inflammatory process. Spleen: Normal. Kidneys: Normal size, contour and axis. No radiodense stones or obstructive uropathy. No masses seen. Adrenal glands: No masses seen. Abdominal Aorta: Abdominal portion non-dilated. Mild atherosclerotic changes. PELVIS: Bladder: No gross wall thickening. No calculi.No focal mass. Bowel: Appendix normal. Redundant sigmoid. Increased quantity of stool seen in descending colon, si gmoid and rectum. Mild diverticulosis. No evidence of diverticulitis. No mass is visible. No obst ruction or bowel wall thickening. Appendix normal. Peritoneal cavity: No ascites, collection or mesenteric inflammatory response. Bones: Within normal limits for age. There are degenerative disc changes at L5-S1. Reproductive organs: Mildly enlarged prostate. Lymph nodes: Unremarkable. Impression: Unremarkable CT scan of the abdomen and pelvis. RADIATION DOSE DELIVERED: 1,375.52mGy.cm Total DLP DATA REPOSITORY: All CT scans at this facility are submitted to the National Radiology Data Registry (NRDR) Dose Index Registry (DIR) with the [employer] (ACR). RADIATION OPTIMIZATION: All CT scans at this facility use at least one of these dose optimization te chniques: automated exposure control; mA and/or kV adjustment per patient size (includes targeted exa ms where dose is matched to clinical indication); or iterative reconstruction.
[2021-05-28] MEDS: Breeza Beverage 473 ML BTL PO (11:24)
[2021-05-28] MEDS: Omnipaque 350 MG/ML 50 ML BTL IJ (11:25)
[2021-05-28] MEDS: Omnipaque 350 MG/ML 100 ML BTL IJ (13:30)
== END 2021-05-28 03:33 ==
PROVIDERS: PCP Nurse Practitioner Family
DX: R10.12 Left upper quadrant pain (principal); R53.83 Other fatigue
CPT/HCPCS: 74177; J3490; Q9967

== ENCOUNTER 2021-06-20 02:46 | Outpatient (CLI) | payer OTHER, SELFPAY ==
--- NOTE | 2021-06-20 06:45 | DI.US_ITS ---
APPROVED REPORT EXAM: Comprehensive 2D, Doppler, and color-flow Echocardiogram Patient Location: Out-Patient Rough And Trueing Machine Operator: Bria Anand RDCS (AE) Indications: Extreme fatigue, Normal stress test Other Information Study Quality: Fair. Technically limited study due to body habitus. Conclusion Normal left ventricular wall thickness and chamber size. Estimated ejection fraction is 60%. Wall m otion is normal Normal right ventricular size and systolic function Both atria are normal in size There is no significant valvular disease Mildly dilated ascending aorta measuring 3.8 cm Wall motion Left Ventricle The left ventricle is normal size. The left ventricular systolic function is normal. The left ventric ular ejection fraction is within the normal range. There is normal left ventricular wall thickness. T here is normal LV segmental wall motion. There is no ventricular septal defect visualized. LVEF is 60 %. Right Ventricle Right ventricle is grossly normal in size. Right ventricular systolic function is grossly normal. Atria The left atrium size is normal. The right atrium size is normal. The interatrial septum is intact wit h no evidence for an atrial septal defect. Aortic Valve The aortic valve is normal in structure. Aortic valve is trileaflet. There is no aortic valvular sten osis. No aortic regurgitation is present. Mitral Valve The mitral valve is normal in structure. No evidence of mitral valve stenosis. Trace mitral regurgita tion. Tricuspid Valve The tricuspid valve is normal in structure. There is no tricuspid valve stenosis. Trace tricuspid reg urgitation. Pulmonic Valve The pulmonary valve is normal in structure. There is no pulmonic valvular stenosis. There is no pulmo maggy valvular regurgitation. Great Vessels The aortic root is normal in size. The ascending aorta is mildly dilated.3.8 cm IVC is normal in size and collapses >50% with inspiration. Pericardium There is no pericardial effusion. 2D Dimensions IVSD d PLAX 0.87 cm M: 0.6-1.2 LV Vol A2C d MOD 114.5 mL LVPW d PLAX 0.89 cm M: 0.6 - 1.2 LV Vol A4C d MOD 136.0 mL LVID d PLAX 5.00 cm M: 4.2 - 5.8 LA vol/ BSA A2C s A-L 21.6 mL/m2 LVDs 3.30 cm M: 2.5 - 4.0 LA vol/ BSA A4C s A-L 20.4 mL/m2 Ao Root d 3.51 cm M: 3.1 - 3.7 LA Vol/ BSA Biplane s A-L 21.8 mL/m2 RA Area A4C 13.94 cm2 LA Area A4C s MOD 16.50 cm2 RA Vol/ BSA A4C s A-L 15.6 mL/m2 LA Area A2C s MOD 17.70 cm2 Ao Asc Diam d 3.80 cm M: 2.6 - 3.4 LV EF A4C MOD 60.2 % LV EF Teichholz 61.8 % LV EF A2C MOD 61.3 % LVEF (Thomas's) 61.12 % M: 52 - 72 LV EF Biplane MOD 61.1 % LV Volume 91.04 mL M: 62 - 150 SV 77.18 mL LV Volume Index 40.28 mL/m2 M: 34 - 74 SV Index 34.12 mL/m2 LV Vol Biplane MOD 126.3 mL FS 33.30 % M-Mode TAPSE 2.27 cm (M/F) >1.7 LV Diastology MV E' medial 0.078 (>0.07 m/s) E/A Ratio 0.9 LV E/e MED 9.25 (<14) MV E Vmax 0.72 (0.4-1.3 m/s) MV E' lateral 0.064 (>0.1 m/s) MV A Vmax 0.80 (0.4-1.3 m/s) LV E/e LAT 11.35 (<14) MV E/A Ratio 0.87 MV E/E' medial 9.25 MV E/E' lateral 11.38 Aortic Valve LVOT Area 3.68 cm2 AoV Area Vmax 2.72 cm2 LVOT Vmax 0.78 m/s AoV Area/ BSA (Vmax) 1.20 cm2/m2 LVOT Mean Zachary. 0.53 m/s BURKE Mean Zachary. 2.54 cm2 LVOT Peak Grad 2.4 mmHg BURKE Mean Zachary. Index 1.12 cm2/m2 LVOT Mean Grad 1.3 mmHg LVOT VTI 0.162 m LVOT Diam s 2.15 cm AoV Vmax 1.05 m/s Velocity Ratio 0.74 AoV Mean Zachary. 0.76 m/s AoV Peak Grad 4.4 mmHg LVOT SV 59.51 mL AoV Mean Grad 2.6 mmHg AoV VTI 0.219 m AoV Area VTI 2.72 cm2 AoV Area/ BSA (VTI) 1.20 cm/m2 Mitral Valve MV DT 189 (160-240 msec) MV PHT 55 msec MV Area PHT 4.01 cm2 MV VTI 0.223 m MV Area VTI 2.67 (4.0-6.0 cm2) Pulmonary Valve PV Vmax 1.20 (0.5-1.5 m/s) RVOT Peak Gr. 2.13 mmHg PV Peak Grad 5.8 mmHg RVOT Mean Gr. 1.10 mmHg PV Mean Grad 3.3 mmHg RVOT VTI 0.173 m PV VTI 0.244 m RVOT Vmax 0.73 m/s Tricuspid Valve TR Peak Grad 24.3 mmHg TR Vmax 2.47 m/s RA Pressure 3.00 mmHg RVSP (TR) 27.4 mmHg
== END 2021-06-20 03:06 ==
PROVIDERS: PCP Nurse Practitioner Family
DX: R53.83 Other fatigue (principal); R93.9 Diagnostic imaging inconclusive due to excess body fat of patient; I77.812 Thoracoabdominal aortic ectasia
CPT/HCPCS: 93306

== ENCOUNTER 2021-09-02 09:34 | Outpatient (CLI) | payer OTHER, SELFPAY ==
--- NOTE | 2021-09-02 09:00 | DI.RAD_ITS ---
Exam(s) XR HIP RT 1V EXAM: XR HIP RT 1V CLINICAL HISTORY: pain with walking. TECHNIQUE: 2D digital imaging was performed. COMPARISON: CR XR HIP LT COMPLETE AP PELVIS from 09/02/2021 FINDINGS: No evidence of fracture or dislocation or abnormal soft tissue densities. Joint spaces preserved. N o osseous lesions. IMPRESSION: DATA REPOSITORY: RADIATION DOSE DELIVERED:
--- NOTE | 2021-09-02 09:00 | DI.RAD_ITS ---
Exam(s) XR HIP LT COMPLETE AP PELVIS EXAM: XR HIP LT COMPLETE AP PELVIS CLINICAL HISTORY: pain with walking. TECHNIQUE: 2D digital imaging was performed. COMPARISON: No exams were available for comparison FINDINGS: Two views pelvis-left hip reveal no evidence of fracture or joint space narrowing. On the lateral vi ew there is suggestion of a small bony excrescence off the junction between the femoral head and neck . Correlation with any clinical symptomatology CAM-type VINCE recommended IMPRESSION: DATA REPOSITORY: RADIATION DOSE DELIVERED:
== END 2021-09-02 09:35 | disposition home or self-care (01) ==
LOC: DIORS 09:35
PROVIDERS: PCP Nurse Practitioner Family; Referring Provider Nurse Practitioner Family; Visit Provider Physician Assistant Surgical
DX: M25.551 Pain in right hip (principal); M25.552 Pain in left hip
CPT/HCPCS: 73501; 73502

== ENCOUNTER 2021-11-09 11:30 | Emergency (ER) | payer OTHER, SELFPAY ==
[2021-11-09 11:36] VITALS: BP 136/85; PULSE 60; RESP 18; TEMP 35.9; O2SAT 100
--- NOTE | 2021-11-09 11:45 | DI.RAD_ITS ---
Exam(s) XR RIBS RT W PA LAT CHEST EXAM: XR RIBS RT W PA LAT CHEST CLINICAL HISTORY: fall/pain TECHNIQUE: 2D digital imaging was performed. COMPARISON: CR XR CHEST 2V PA LATERAL from 06/30/2018 FINDINGS: Right ribs: There is in nondisplaced fracture of the 7th right rib. No other rib fractures identifie d. There is evidence of prior rotator cuff surgery in the right shoulder. Degenerative changes are noted in the glenohumeral joint. Chest x-ray: Heart size upper normal mediastinum is not widened. Right hemidiaphragm is chronically elevated, unchanged from at least June 2018. No infiltrates nor pleural effusions. No pneumothor ax. No lung contusion. Heart size is normal and there is no significant mediastinal widening. IMPRESSION: 1. Right 7th rib fracture. 2. No significant pulmonary findings. No pneumothorax. DATA REPOSITORY: RADIATION DOSE DELIVERED:
--- NOTE | 2021-11-09 12:29 | W.ED.GENAD ---
Discharge Plan Disposition Patient Disposition: HOME Condition: Stable Discharge Details Clinical Impression: Fractured rib Primary Care Provider: Ester Olivo ED Provider: Garland Luevano Home Meds and New Rx's Prescriptions: New lidocaine [Lidoderm] 5 % adhesive patch,medicated 1 patch topical DAILY Qty: 1 0RF Rx Instructions: leave on most painful area for up to 12 hrs oxycodone-acetaminophen [Percocet] 5-325 mg tablet 1 tab PO TID PRNQty: 8 0RF Continued metformin 500 mg tablet extended release 24 hr 1,000 mg PO BID Qty: 360 4RF Rx Instructions: Take 2 tablets twice a day bupropion HCl 150 mg tablet extended release 24 hr 150 mg PO QAM Qty: 90 4RF nitroglycerin 0.4 mg tablet, sublingual 0.4 mg SL ONCE PRN (Reason: chest pain) Qty: 30 0RF Rx Instructions: Take 1 tablet once for chest pain, repeat in 5min if still present and call 911 zolpidem 6.25 mg tablet,ext release multiphase 6.25 mg PO QHS PRN (Reason: insomnia) Qty: 30 0RF aspirin [Adult Aspirin Regimen] 81 mg tablet,delayed release (DR/EC) 81 mg PO DAILY 0RF All Day Allergy (cetirizine) 10 mg capsule 10 mg PO DAILY 0RF (DME) pen needle, diabetic [BD Ultra-Fine Leah Pen Needle] 32 gauge x 5/32 needle See Dose Instructions .ROUTE .MEDSUPPLY Qty: 200 4RF Rx Instructions: Use with tresiba pen once a day chlorthalidone 25 mg tablet 25 mg PO DAILY Qty: 90 4RF metoprolol succinate 50 mg tablet extended release 24 hr 50 mg PO DAILY Qty: 90 4RF Rx Instructions: Take 1 tablet daily lisinopril 20 mg tablet 20 mg PO BID Qty: 180 4RF semaglutide 14 mg tablet 14 mg PO DAILY Qty: 90 4RF Rx Instructions: Take 1 tablet once a day (DME) lancets [OneTouch UltraSoft Lancets] Misc See Rx Instructions .MEDSUPPLY Qty: 200 4RF Rx Instructions: Check blood sugar twice a day (DME) FreeStyle Precision Serg Strips Strip See Rx Instructions .ROUTE .MEDSUPPLY Qty: 10 0RF Rx Instructions: As directed insulin degludec 200 unit/mL (3 mL) insulin pen 56 unit SC QHS Qty: 12 4RF (DME) FreeStyle Luis 14 Day [place] Misc See Rx Instructions .ROUTE .MEDSUPPLY Qty: 3 4RF Rx Instructions: Continuous glucose monitor (DME) FreeStyle Luis 14 Day Sensor Kit See Rx Instructions .ROUTE .MEDSUPPLY Qty: 3 4RF Rx Instructions: Continuous glucose monitor Discharge Instructions Instructions: Rib Fracture (ED) Additional Instructions: X-ray reveals a rib fracture. You also have a small wound to your finger and elbow. Lidoderm patch and Percocet as directed. Remember Percocet may cause drowsiness and/or constipation, you may want to take [id number] stool softener while taking this medication. Cool and/or warm compresses every 2 hours for 20 minutes. Change antibiotic dressing daily. Please watch for new or worsening symptoms and return to the ER for any concerns. Lastly, please contact your primary care provider on Thursday to discuss your ER visit and need for outpatient reevaluation. Discharge Data Discharge Date/Time-TO BE ENTERED AT DEPARTURE: 11/09/21 14:12 Medical Decision Making 66-year-old gentleman, not anticoagulated, tetanus status up-to-date, presents to the ER for evaluation status post mechanical slip and fall about 1 hour ago on ice. Reports right sided rib discomfort. Also sustained wounds to his right middle finger and elbow. Plan is to clean and dress the 2 wounds. Will obtain a right rib series with chest x-ray and give a single Percocet and Lidoderm patch. Patient is hemodynamically stable, extremely low suspicion for pneumothorax. Wounds were cleaned and dressed appropriately. X-ray reveals a nondisplaced right seventh rib fracture. Discussed x-ray findings with patient. He received his Lidoderm patch and Percocet. He was given an spirometer with teaching. Will provide prescription for Percocet and Lidoderm patch. Standard discharge and return precautions were provided. This documentation was generated using [employer] system, please disregard any oddities of phrase or misspellings. Medical Records Medical records reviewed: Yes I reviewed the patient's medical records. Imaging Data Radiologic Study: Attestation: I personally reviewed and interpreted this imaging study as follows: Imaging: X-Ray Radiologist's impression: PROCEDURE INFORMATION: Exam: XR Right Ribs Exam date and time: 11/09/2021 11:59 AM Age: 66 years old Clinical indication: Right-sided; Chest wall pain; Patient HX: Fall, blunt trauma to rib cage on RT side TECHNIQUE: Imaging protocol: XR Right ribs. Views: 2 views. COMPARISON: CR XR CHEST 2V PA LATERAL 06/30/2018 2:19 PM FINDINGS: Bones/joints: Suspected acute nondisplaced fracture through the right anterior 7th rib. Soft tissues: Unremarkable. IMPRESSION: Suspected acute nondisplaced right anterior 7th rib fracture. PROCEDURE INFORMATION: Exam: XR Chest Exam date and time: 11/09/2021 11:59 AM Age: 66 years old Clinical indication: Right-sided; Chest wall pain; Patient HX: Fall, blunt trauma to rib cage on RT side TECHNIQUE: Imaging protocol: XR of the chest. HPI General Mode of arrival: ambulatory. Date/Time Provider Initiated Documentation: 11/09/21 11:58. Limitations to Documentation: no limitations. Information obtained by: patient. History of Present Illness 66 year old M presents to the emergency department with the chief complaint of fall/rib pain, described as severe, with intensity rated at 8. Quality is described as stabbing and aching, and is localized to the chest and right. Patient reports no radiation. Patient started experiencing this hour(s) (1) and it has been constant. improves with No relieving factors improve symptom(s), Movement worsens symptoms . Patient notes other (R elbow and R middle finger pain). Patient did receive the following treatments prior to arrival, none Related Data Home Medications Medication Instructions Recorded Confirmed aspirin 81 mg tablet,delayed 81 mg PO DAILY 05/31/18 11/09/21 release (Adult Aspirin Regimen) cetirizine 10 mg capsule (All Day 10 mg PO DAILY cap 05/31/18 11/09/21 Allergy (cetirizine)) pen needle, diabetic 32 gauge x #200 each 11/30/19 10/28/21 (BD Ultra-Fine Leah Pen Needle) chlorthalidone 25 mg tablet 25 mg PO DAILY #90 tab 12/05/20 11/09/21 lisinopril 20 mg tablet 20 mg PO BID #180 tab 12/05/20 11/09/21 metoprolol succinate 50 mg 50 mg PO DAILY #90 tab 12/05/20 11/09/21 tablet,extended release 24 hr semaglutide 14 mg tablet 14 mg PO DAILY #90 tab 03/22/21 11/09/21 nitroglycerin 0.4 mg sublingual 0.4 mg SL ONCE PRN #30 tab 04/19/21 11/09/21 tablet bupropion HCl 150 mg 24 hr tablet, 150 mg PO QAM #90 tab 06/07/21 11/09/21 extended release metformin 500 mg tablet,extended 1,000 mg PO BID #360 tab 06/07/21 11/09/21 release 24 hr blood sugar diagnostic (FreeStyle #10 ea 07/19/21 10/28/21 Precision Serg Strips) lancets (OneTouch UltraSoft #200 ea 07/19/21 10/28/21 Lancets) zolpidem 6.25 mg tablet,extended 6.25 mg PO QHS PRN #30 tab 10/04/21 11/09/21 release,multiphase insulin degludec 200 unit/mL (3 56 unit (0.28 mL) SC QHS #12 syrg 10/09/21 11/09/21 mL) subcutaneous pen flash glucose scanning reader #3 ea 10/24/21 10/28/21 (FreeStyle Luis 14 Day [place]) flash glucose sensor (FreeStyle #3 ea 10/24/21 10/28/21 Luis 14 Day Sensor) lidocaine 5 % topical patch 1 patch TOPICAL DAILY #1 ea 11/09/21 (Lidoderm) oxycodone-acetaminophen 5 mg-325 1 tab PO TID PRN #8 tab 11/09/21 mg tablet (Percocet) Previous Rx's Medication Instructions Recorded pen needle, diabetic 32 gauge x #200 each 11/30/19 (BD Ultra-Fine Leah Pen Needle) chlorthalidone 25 mg tablet 25 mg PO DAILY #90 tab 12/05/20 lisinopril 20 mg tablet 20 mg PO BID #180 tab 12/05/20 metoprolol succinate 50 mg 50 mg PO DAILY #90 tab 12/05/20 tablet,extended release 24 hr semaglutide 14 mg tablet 14 mg PO DAILY #90 tab 03/22/21 nitroglycerin 0.4 mg sublingual 0.4 mg SL ONCE PRN #30 tab 04/19/21 tablet bupropion HCl 150 mg 24 hr tablet, 150 mg PO QAM #90 tab 06/07/21 extended release metformin 500 mg tablet,extended 1,000 mg PO BID #360 tab 06/07/21 release 24 hr blood sugar diagnostic (FreeStyle #10 ea 07/19/21 Precision Serg Strips) lancets (OneTouch UltraSoft #200 ea 07/19/21 Lancets) zolpidem 6.25 mg tablet,extended 6.25 mg PO QHS PRN #30 tab 10/04/21 release,multiphase insulin degludec 200 unit/mL (3 56 unit (0.28 mL) SC QHS #12 syrg 10/09/21 mL) subcutaneous pen flash glucose scanning reader #3 ea 10/24/21 (FreeStyle Luis 14 Day [place]) flash glucose sensor (FreeStyle #3 ea 10/24/21 Luis 14 Day Sensor) lidocaine 5 % topical patch 1 patch TOPICAL DAILY #1 ea 11/09/21 (Lidoderm) oxycodone-acetaminophen 5 mg-325 1 tab PO TID PRN #8 tab 11/09/21 mg tablet (Percocet) Allergies Allergy/AdvReac Type Severity Reaction Status Date / Time HMG-CoA REDUCTASE INHIBITORS AdvReac Intermediate MYALGIA Uncoded 11/09/21 11:42 General Stated Complaint: Chest/Rib RADHA: 3 Review of Systems Constitutional Constitutional: Denies headache(s) and Denies weakness ENT Ears, Nose, Mouth, and Throat: Denies headache(s) and Denies neck pain Cardiovascular Cardiovascular: Reports chest pain (chest wall from fall) and Denies dyspnea Respiratory Respiratory: Denies dyspnea Gastrointestinal Gastrointestinal: Denies abdominal pain, Denies nausea and Denies vomiting Musculoskeletal Musculoskeletal: Denies back pain, Denies neck pain, Denies numbness and Denies tingling Neurologic Neurologic: Denies headache(s), Denies numbness, Denies tingling and Denies weakness Hematologic/Lymphatic Hematologic/Lymphatic: Denies easy bleeding and Denies easy bruising PFSH All Active Problems (Updated 11/09/21 @ 13:30 by ELENI Garduno) Fractured rib (Acute) Coronary artery disease, non-occlusive (Chronic) LHC, RHC at [facility] [place] 06/2018 Type 2 diabetes mellitus (Chronic) Obstructive sleep apnea (Chronic) Hyperlipidemia (Chronic) Essential hypertension (Chronic) Pulmonary arterial hypertension (Chronic) Insomnia (Chronic) Obesity (Chronic) Medical History Cerebrovascular accident (CVA) Silent, unknown when occurred but lacunar infarcts seen on head CTs as old as 2014 Fracture of right orbital floor Pericarditis 2000 Post concussion syndrome Syncope Tubular adenoma of colon Surgical History H/O arthroscopy of left knee S/P colonoscopy (07/28/16) S/P right rotator cuff repair (09/08/03) S/P trigger finger release (09/06/04) Bilateral index fingers Family History Mother , at 59 Stroke Hypertension Father , at 58 CAD (coronary artery disease) Liver cancer Sister No problems noted. Brother No problems noted. Son No problems noted. Son No problems noted. Maternal Grandfather No problems noted. Maternal Grandmother No problems noted. Paternal Grandfather No problems noted. Paternal Grandmother No problems noted. Social History Smoking/Tobacco Use Status: Former Tobacco Use tobacco type: cigarettes Quit Date: 09/20/85 Pack-years: 32 Tobacco: How many years used: 16 Second Hand Exposure: No Smoking risk assessment performed?: Yes Alcohol Intake: former Drug use: Never Substance use type: does not use Caregiver/Support person: No Household members: other Details: 3 Housing: house Communication Needs: None Pets and animals: Yes Pets and animals: cat(s) and dog(s) Sexually active: Yes Do you think of yourself as: straight/heterosexual Current gender identity: male What is your relationship status?: How often do you talk on the phone with friends or family?: three or more times per week How often do you get together with friends or relatives?: three or more times per week How often do you attend caodaism or roman catholic services?: decline to answer Do you belong to any clubs or organized social groups?: yes Panel score (0-1 are the most socially isolated patients): 3 What type of physical activity do you participate in: walking Duration: 15-30 minutes/day Frequency: 3-4 times per week Heidi/Zoroastrianism: Cheondoism Special heidi needs: No Seatbelt use: always Helmet use: Yes Helmet use: always Drive 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 There is diffuse discomfort over the lateral right chest wall between rib 5 and 10. No crepitus. Resp Effort & Inspection: normal respiratory effort and able to speak in complete sentences Auscultation: clear to auscultation bilaterally Cardio Rate: regular rate Rhythm: regular rhythm GI Palpation: soft and nontender Back/Spine/Pelvis Back: no CVA tenderness and No back tenderness Skin General skin exam: no rashes or lesions noted Neuro General: patient alert, patient awake, patient oriented x3, moves all extremities and no focal motor deficits Cognition: normal cognition Speech: speech normal Gait: normal gait Motor: muscle tone normal throughout Sensory Exam: no sensory deficits noted Extrem General: full ROM and capillary refill normal Shoulder/upper arm images: 1. Shallow wound-abrasion. No active bleeding. No bony point tenderness. Full range of motion. Neuro, vascular, tendon intact. No deformity Hand/finger images: 1. 1 cm superficial well approximated laceration-abrasion. Bleeding controlled. Neuro, vascular, tendon intact. Full range of motion, 5 out of 5 strength. Normal capillary refill. Psych Appearance: grossly normal Mental Status: mental status grossly normal Course Vital Signs Vital signs: Vital Signs Temperature 35.9 C L 11/09/21 11:36 Pulse 60 11/09/21 11:36 Respiratory Rate 18 11/09/21 11:36 Blood Pressure 136/85 11/09/21 11:36 Pulse Oximetry 100 11/09/21 11:36 Temperature 35.9 C L 11/09/21 11:36 Temperature Source Temporal Artery Scan 11/09/21 11:36 Pulse 60 02/19/22 11:36 Respiratory Rate 18 11/09/21 11:36 Respiratory Effort Non-Labored 11/09/21 11:47 Respiratory Depth Normal 11/09/21 11:47 Respiratory Pattern Normal 11/09/21 11:47 Blood Pressure 136/85 11/09/21 11:36 Blood Pressure Position Sitting 11/09/21 11:36 Pulse Oximetry 100 11/09/21 11:36 Oxygen Delivery Method Room Air 11/09/21 11:36 Oxygen Flow Rate 0 11/09/21 11:36 Pain Level 9 11/09/21 12:09
--- NOTE | 2021-11-09 13:09 | DI.VRAD_ITS ---
PROCEDURE INFORMATION: Exam: XR Right Ribs Exam date and time: 11/09/2021 11:59 AM Age: 66 years old Clinical indication: Right-sided; Chest wall pain; Patient HX: Fall, blunt trauma to rib cage on RT side TECHNIQUE: Imaging protocol: XR Right ribs. Views: 2 views. COMPARISON: CR XR CHEST 2V PA LATERAL 06/30/2018 2:19 PM FINDINGS: Bones/joints: Suspected acute nondisplaced fracture through the right anterior 7th rib. Soft tissues: Unremarkable. IMPRESSION: Suspected acute nondisplaced right anterior 7th rib fracture. PROCEDURE INFORMATION: Exam: XR Chest Exam date and time: 11/09/2021 11:59 AM Age: 66 years old Clinical indication: Right-sided; Chest wall pain; Patient HX: Fall, blunt trauma to rib cage on RT side TECHNIQUE: Imaging protocol: XR of the chest. Views: 2 views. COMPARISON: CR XR CHEST 2V PA LATERAL 06/30/2018 2:19 PM FINDINGS: Lungs: No consolidation. Pleural spaces: No pneumothorax. No sizable pleural effusion. Heart/Mediastinum: Similar cardiomediastinal silhouette. Bones/joints: Elevation left distal clavicle redemonstrated. Other findings: Redemonstrated right hemidiaphragmatic elevation. IMPRESSION: No acute cardiopulmonary findings. Dictated and Authenticated by: Jose Lopez MD. Ordering:BOYD Haque MD
[2021-11-09] MEDS: oxyCODONE 5 mg/Acetaminophen 325 mg TAB 1 TAB PO (13:24)
[2021-11-09] MEDS: Lidocaine 5% Patch 1 PATCH TP (13:25)
== END 2021-11-09 14:12 | disposition home or self-care (01) ==
PROVIDERS: Emergency Provider Physician Assistant; PCP Nurse Practitioner Family
DX: S22.31XA Fracture of one rib, right side, initial encounter for closed fracture (principal); S60.413A Abrasion of left middle finger, initial encounter; S50.311A Abrasion of right elbow, initial encounter; W00.0XXA Fall on same level due to ice and snow, initial encounter
CPT/HCPCS: 99283; 71046; 71100

== ENCOUNTER → 2021-11-22 01:05 | Outpatient (CLI) | payer OTHER, SELFPAY | PROVIDERS: PCP Nurse Practitioner Family; Visit Provider Nurse Practitioner Family ==

== ENCOUNTER 2022-04-09 17:04 | Outpatient (REF) | payer OTHER, SELFPAY ==
[2022-04-09 21:41] LABS: Abs Immature Grans 0.04 10^3/uL (0.0-0.06); Absolute Basophil Count 0.05 10^3/uL (0.0-0.2); Absolute Eosinophil Count 0.64 10^3/uL (0.0-0.7); Absolute Lymphocyte Count 2.05 10^3/uL (1.2-3.4); Absolute Monocyte Count 0.52 10^3/uL (0.1-0.8); Absolute Neutrophil Count 5.64 10^3/uL (1.2-6.7); Basophils % 0.6; Eosinophils % 7.2; HCT 40.5 % (40.0-50.0); HGB 13.1 g/dL (13.5-17.5); Immature Grans % 0.4; Lymphocytes % 22.9; MCH 30.3 pg (27.0-33.0); MCHC 32.3 % (32.0-36.0); MCV 94 fL (80-95); MPV 10.6 fL (8.0-11.0); Monocytes % 5.8; Neutrophils % 63.1; Platelet Count 310 10^3/uL (130-400); RBC 4.32 10^6/uL (4.36-5.78); RDW 12.3 % (11.8-14.1); RDW-SD 42.5 fL; WBC 8.94 10^3/uL (4.4-10.8)
[2022-04-09 21:51] LABS: Anion Gap 10.6 mmol/L (3-11); BUN 32 mg/dL (7-18); CO2 25.4 mmol/L (21.0-32.0); CREATININE 1.7 mg/dL (0.70-1.30); Calcium 8.8 mg/dL (8.5-10.1); Calculated LDL 117 mg/dL (<100); Chloride 104 mmol/L (98-107); Cholesterol 220 mg/dL (<200); Estimated GFR 40.16 (mL/min/1.73m2); Glucose 110 mg/dL (74-106); HDL Cholesterol 31 mg/dL (40-60); Potassium 4.7 mmol/L (3.5-5.1); Sodium 140 mmol/L (136-145); Triglyceride 361 mg/dL (<150)
[2022-04-09 22:24] LABS: COMMENT (LAB VIEW ONLY) 109.15 mg/dL; Microalb ug/mg Crea 24.8 ug/mg Cr
[2022-04-11 21:52] LABS: COVID-19 RT-PCR UVMMC Result Negative (Negative)
== END 2022-04-09 17:05 | disposition home or self-care (01) ==
LOC: LBN 17:04
PROVIDERS: PCP Nurse Practitioner Family; Visit Provider Physician Assistant
DX: E11.9 Type 2 diabetes mellitus without complications (principal); Z20.822 Contact with and (suspected) exposure to COVID-19; W57.XXXA Bitten or stung by nonvenomous insect and other nonvenomous arthropods, initial encounter; N39.0 Urinary tract infection, site not specified
CPT/HCPCS: 80048; 80061; U0003; 82043; 82570; 85025

== ENCOUNTER 2022-04-09 18:10 | Outpatient (REF) | payer OTHER, SELFPAY | END 2022-04-09 18:11 | disposition home or self-care (01) | LOC: LBN 18:10 | PROVIDERS: PCP Nurse Practitioner Family; Visit Provider Physician Assistant ==

== ENCOUNTER 2022-04-09 19:02 | Outpatient (REF) | payer OTHER, SELFPAY | END 2022-04-09 19:03 | disposition home or self-care (01) | LOC: LBN 19:02 | PROVIDERS: PCP Nurse Practitioner Family; Visit Provider Physician Assistant ==

== ENCOUNTER 2023-02-25 04:12 | Outpatient (CLI) | payer OTHER, SELFPAY ==
[2023-02-25 12:34] LABS: Anion Gap 6.9 mmol/L (3-11); BUN 30 mg/dL (7-18); CO2 29.1 mmol/L (21.0-32.0); CREATININE 1.6 mg/dL (0.70-1.30); Calcium 9.2 mg/dL (8.5-10.1); Calculated LDL 132 mg/dL (<100); Chloride 104 mmol/L (98-107); Cholesterol 222 mg/dL (<200); Estimated GFR 46.35 (mL/min/1.73m2); Glucose 127 mg/dL (74-106); HDL Cholesterol 39 mg/dL (40-60); Potassium 4.3 mmol/L (3.5-5.1); Sodium 140 mmol/L (136-145); Triglyceride 258 mg/dL (<150)
[2023-02-25 22:47] LABS: PSA, Screening 1.6 ng/mL (<=4.5)
== END 2023-02-25 04:13 | disposition home or self-care (01) ==
LOC: LOS 04:12
PROVIDERS: PCP Nurse Practitioner Family; Visit Provider Nurse Practitioner Family
DX: E11.69 Type 2 diabetes mellitus with other specified complication (principal); E78.5 Hyperlipidemia, unspecified; Z12.5 Encounter for screening for malignant neoplasm of prostate
CPT/HCPCS: 36415; 80048; 80061; 84153; 83036

== ENCOUNTER 2023-04-16 08:31 | Outpatient (CLI) | payer OTHER, SELFPAY ==
[2023-04-16 15:55] LABS: Abs Immature Grans 0.03 10^3/uL (0.0-0.06); Absolute Basophil Count 0.04 10^3/uL (0.0-0.2); Absolute Eosinophil Count 0.49 10^3/uL (0.0-0.7); Absolute Monocyte Count 0.63 10^3/uL (0.1-0.8); Absolute Neutrophil Count 6.28 10^3/uL (1.2-6.7); Basophils % 0.4; Eosinophils % 5.1; HCT 40.9 % (40.0-50.0); Immature Grans % 0.3; Lymphocytes % 22.8; MCH 30.3 pg (27.0-33.0); MCHC 31.8 % (32.0-36.0); MCV 95 fL (80-95); MPV 10.1 fL (8.0-11.0); Monocytes % 6.5; Neutrophils % 64.9; Platelet Count 315 10^3/uL (130-400); RBC 4.29 10^6/uL (4.36-5.78); RDW 12.6 % (11.8-14.1); RDW-SD 44.3 fL; WBC 9.67 10^3/uL (4.4-10.8)
[2023-04-16 16:25] LABS: Calculated LDL 101 mg/dL (<100); Cholesterol 176 mg/dL (<200); Ferritin 72 ng/mL (26-388); HDL Cholesterol 35 mg/dL (40-60); TSH (W/Ref FT4) 2.42 uIU/mL (0.36-3.74); Triglyceride 202 mg/dL (<150); Vitamin B12 372 pg/mL (193-986)
== END 2023-04-16 08:32 | disposition home or self-care (01) ==
LOC: LOS 08:32
PROVIDERS: PCP Nurse Practitioner Family; Referring Provider Nurse Practitioner Family; Visit Provider Nurse Practitioner Family
DX: R53.83 Other fatigue (principal); E78.5 Hyperlipidemia, unspecified; I10 Essential (primary) hypertension
CPT/HCPCS: 36415; 80061; 82607; 82728; 84443; 85025

== ENCOUNTER 2023-06-02 09:20 | Outpatient (CLI) | payer OTHER, SELFPAY ==
--- NOTE | 2023-06-02 09:00 | DI.RAD_ITS ---
Exam(s) XR SHOULDER RT COMPLETE 2+V EXAM: XR SHOULDER RT COMPLETE 2+V CLINICAL HISTORY: RIGHT SHOULDER PAIN. TECHNIQUE: 2D digital imaging was performed. Three views. COMPARISON: CR LEFT SHOULDER COMPLETE from 05/21/2017 CR CHEST 2 VIEWS PA,LAT from 05/12/2018 CR,XR XR RIBS RT W PA LAT CHEST from 11/09/2021 FINDINGS: BONES: No acute fracture is present. No bony destructive lesion is seen. Metallic anchors in humeral head and greater tuberosity related to prior rotator cuff repair. Spurring and mild deformity of th e distal acromion. Mild AC joint degenerative changes. JOINTS: No dislocation present. Glenohumeral joint space is maintained. Mild periarticular spurring . SOFT TISSUE: Normal. IMPRESSION: Postsurgical and degenerative changes. DATA REPOSITORY: RADIATION DOSE DELIVERED:
== END 2023-06-02 09:21 | disposition home or self-care (01) ==
LOC: DIORS 09:20
PROVIDERS: PCP Nurse Practitioner Family; Visit Provider Student in an Organized Health Care Education/Training Program
DX: M19.012 Primary osteoarthritis, left shoulder (principal); Z98.890 Other specified postprocedural states
CPT/HCPCS: 73030

== ENCOUNTER 2023-07-06 14:42 | Observation (INO) | payer OTHER, SELFPAY ==
[2023-07-06] VITALS (27 sets, daily range): BP systolic 125–153; BP diastolic 64–84; PULSE 63–78; RESP 14–34; TEMP 35.9–36.7; O2SAT 94–99
--- NOTE | 2023-07-06 14:30 | DI.RAD_ITS ---
Exam(s) XR PORTABLE CHEST AP EXAM: XR PORTABLE CHEST AP CLINICAL HISTORY: CHEST PAIN TECHNIQUE: 2D digital imaging was performed of the chest. Two images were obtained. AP views were obtained. COMPARISON: CR,XR XR RIBS RT W PA LAT CHEST from 11/09/2021 FINDINGS: MEDIASTINUM: Normal. HEART: Normal. PULMONARY VASCULATURE: Normal. LUNGS: Clear. PLEURAL SPACE: No pleural effusion or pneumothorax. BONE:Within normal limits for the patient's age. OTHER FINDINGS:Normal. IMPRESSION: No acute pulmonary findings. DATA REPOSITORY: RADIATION DOSE DELIVERED:
--- NOTE | 2023-07-06 14:30 | RT.EKG_ITS ---
APPROVED REPORT Exam: Resting ECG Reason for Exam: CHEST PAIN Patient Location: E HR:69 bpm ECG Measurements Heart Rate 69 AXIS IL 191 P 21 QRSd 86 QRS -25 QT 403 T 2 QTc 432 Conclusion sinus, 69, normal axis, non specific ST segment changes, no acute STEMI, no priors for comparison
[2023-07-06 15:04] LABS: Abs Immature Grans 0.03 10^3/uL (0.0-0.06); Absolute Basophil Count 0.03 10^3/uL (0.0-0.2); Absolute Lymphocyte Count 2.07 10^3/uL (1.2-3.4); Absolute Monocyte Count 0.32 10^3/uL (0.1-0.8); Absolute Neutrophil Count 3.96 10^3/uL (1.2-6.7); Basophils % 0.4; Eosinophils % 5.9; HCT 35.9 % (40.0-50.0); HGB 11.9 g/dL (13.5-17.5); Immature Grans % 0.4; Lymphocytes % 30.4; MCH 30.1 pg (27.0-33.0); MCHC 33.1 % (32.0-36.0); MCV 91 fL (80-95); MPV 9.4 fL (8.0-11.0); Monocytes % 4.7; Neutrophils % 58.2; Platelet Count 271 10^3/uL (130-400); RBC 3.96 10^6/uL (4.36-5.78); RDW 12.4 % (11.8-14.1); RDW-SD 41.4 fL; WBC 6.81 10^3/uL (4.4-10.8)
[2023-07-06 15:23] LABS: PTT Activated 25.2 sec (23.6-32.8); Prothrombin Time 9.7 sec (9.1-11.1)
[2023-07-06 15:30] LABS: ALT 35 U/L (16-63); AST 17 U/L (15-37); Albumin 3.2 g/dL (3.4-5.0); Alkaline Phosphatase 101 U/L (46-116); Anion Gap 8.7 mmol/L (3-11); BUN 32 mg/dL (7-18); Bilirubin, Total 0.2 mg/dL (0.2-1.0); CO2 24.3 mmol/L (21.0-32.0); CREATININE 1.7 mg/dL (0.70-1.30); Chloride 105 mmol/L (98-107); Estimated GFR 42.83 (mL/min/1.73m2); Glucose 235 mg/dL (74-106); Magnesium 2.3 mg/dL (1.8-2.4); Potassium 3.8 mmol/L (3.5-5.1); Sodium 138 mmol/L (136-145); Total Protein 6.7 g/dL (6.4-8.2)
[2023-07-06 15:37] LABS: NT-proBNP 64 pg/mL (<300); Troponin I < 50 ng/L (<or=60)
--- NOTE | 2023-07-06 16:18 | ED.GENADUL_ITS ---
Discharge Plan Disposition Patient Disposition: Admit to [facility] Condition: Stable Discharge Details Clinical Impression: Chest pain Primary Care Provider: Ester Olivo ED Provider: Flavio Kim Home Meds and New Rx's Prescriptions: No Action nitroglycerin 0.4 mg tablet, sublingual 0.4 mg SL ONCE PRN (Reason: chest pain) Qty: 30 0RF Rx Instructions: Take 1 tablet once for chest pain, repeat in 5min if still present and call 911 amlodipine 10 mg tablet 10 mg PO DAILY Qty: 90 3RF prednisone 20 mg tablet 10 - 60 mg PO DAILY Qty: 30 0RF Rx Instructions: Take 3 tablets for 5 days then 2 tablets for 4 days then 1 tablet for 3 days and half a tablet for 3 days varicella-zoster [id number] (PF) 50 mcg/0.5 mL suspension for reconstitution 0.5 ml IM ONCE Qty: 1 0RF Rx Instructions: 2 doses 2 months apart aspirin [Adult Aspirin Regimen] 81 mg tablet,delayed release (DR/EC) 81 mg PO DAILY All Day Allergy (cetirizine) 10 mg capsule 10 mg PO DAILY cyclobenzaprine 5 mg tablet 5 - 10 mg PO TID PRN (Reason: muscle spasm) Qty: 60 0RF Rx Instructions: Take 1-2 tablet by mouth three times a day as needed for back pain glipizide 5 mg tablet extended release 24hr 5 mg PO DAILY Qty: 90 3RF ezetimibe [Zetia] 10 mg tablet 10 mg PO DAILY Qty: 90 3RF (DME) lancets [OneTouch UltraSoft Lancets] Misc See Rx Instructions .MEDSUPPLY Qty: 200 4RF Rx Instructions: Check blood sugar twice a day (DME) FreeStyle Precision Serg Strips Strip See Rx Instructions .ROUTE .MEDSUPPLY Qty: 10 0RF Rx Instructions: As directed (DME) pen needle, diabetic [BD Ultra-Fine Leah Pen Needle] 32 gauge x 532 needle See Dose Instructions .ROUTE .MEDSUPPLY Qty: 200 4RF Rx Instructions: Use with tresiba pen once a day semaglutide 14 mg tablet 14 mg PO DAILY Qty: 90 3RF Rx Instructions: Take 1 tablet once a day lisinopril 20 mg tablet 20 mg PO BID Qty: 180 3RF chlorthalidone 25 mg tablet 25 mg PO DAILY Qty: 90 3RF bupropion HCl 150 mg tablet extended release 24 hr 150 mg PO QAM Qty: 90 3RF zolpidem 6.25 mg tablet,ext release multiphase 6.25 mg PO QHS PRN (Reason: insomnia) Qty: 30 0RF (DME) FreeStyle Luis 14 Day Sensor Kit See Rx Instructions .ROUTE .MEDSUPPLY Qty: 3 4RF Rx Instructions: Continuous glucose monitor (DME) FreeStyle Luis 14 Day [place] Misc See Rx Instructions .ROUTE .MEDSUPPLY Qty: 3 4RF Rx Instructions: Continuous glucose monitor metformin 500 mg tablet extended release 24 hr 1,000 mg PO BID Qty: 360 3RF Rx Instructions: Take 2 tablets twice a day metoprolol succinate 25 mg tablet extended release 24 hr 25 mg PO DAILY Qty: 90 3RF Rx Instructions: Take 1 tablet daily insulin degludec 200 unit/mL (3 mL) insulin pen 60 unit SC QHS Qty: 12 4RF Medical Decision Making Emergent evaluation of chest pain. Initial differential includes ACS, less likely dissection, TIA. Patient has normal neurologic exam. He is hemodynamically stable. He is asymptomatic at this time. His history is very concerning for chest pain. Plan for telemetry monitoring, lab work including cardiac biomarkers. Given his risk factors and age, anticipate admission for serial troponins and provocative stress testing 1620: Lab work reviewed. Initial troponin is negative. Remainder of lab work is not clinically significant. Discussed with hospitalist who concurs with plan for admission. Updated patient and on results. Medical Records Medical records reviewed: Yes I reviewed the patient's medical records. Lab Data Lab results reviewed: Yes I reviewed the patient's lab results. ECG Data Attestation: I personally reviewed and interpreted this ECG (s) as follows: Prior ECG tracings: not available for review Interpretation: Sinus 69, no acute ischemic changes HPI General Date/Time Provider Initiated Documentation: 07/06/23 14:44 . Limitations to Documentation: no limitations . Information obtained by: patient . HPI Narrative: 68-year-old gentleman with past medical history of CKD, WERNER, hypertension presents for evaluation of chest pain. He reports acute onset of nausea earlier today that then progressed to substernal chest pressure, diaphoresis and shortness of breath. Symptoms were severe. He reports that he was so sweaty his hair was wet occurred at rest. He was trying to drive to the hospital, but felt so bad that he had to pan puller and call 911. On EMS arrival, his chest pressure had resolved. He was given aspirin. He denies that he is ever had symptoms like this before. Denies any prior heart attack. Related Data Home Medications Medication Instructions Recorded Confirmed aspirin 81 mg tablet,delayed 81 mg PO DAILY 05/31/18 06/02/23 release (Adult Aspirin Regimen) cetirizine 10 mg capsule (All Day 10 mg PO DAILY 05/31/18 06/02/23 Allergy (cetirizine)) nitroglycerin 0.4 mg sublingual 0.4 mg sublingual ONCE PRN chest 04/19/21 06/02/23 tablet pain #30 tabs blood sugar diagnostic (FreeStyle #10 ea 07/19/21 06/02/23 Precision Serg Strips) lancets (OneTouch UltraSoft #200 ea 07/19/21 06/02/23 Lancets) glipizide 5 mg tablet, extended 5 mg PO DAILY #90 tabs 07/31/22 06/02/23 release 24 hr pen needle, diabetic 32 gauge x #200 ea 09/11/22 06/02/23 5/32 (BD Ultra-Fine Leah Pen Needle) cyclobenzaprine 5 mg tablet 5 - 10 mg (1 - 2 x 5 mg) PO TID 11/24/22 06/02/23 PRN muscle spasm #60 tabs chlorthalidone 25 mg tablet 25 mg PO DAILY #90 tabs 12/03/22 06/02/23 lisinopril 20 mg tablet 20 mg PO BID #180 tabs 12/03/22 06/02/23 semaglutide 14 mg tablet 14 mg PO DAILY #90 tabs 12/03/22 06/02/23 ezetimibe 10 mg tablet (Zetia) 10 mg PO DAILY #90 tabs 02/27/23 06/02/23 bupropion HCl 150 mg 24 hr tablet, 150 mg PO QAM #90 tabs 04/08/23 06/02/23 extended release amlodipine 10 mg tablet 10 mg PO DAILY #90 tabs 04/16/23 06/02/23 zolpidem 6.25 mg tablet,extended 6.25 mg PO QHS PRN insomnia #30 04/28/23 06/02/23 release,multiphase tabs prednisone 20 mg tablet 10 - 60 mg (0.5 - 3 x 20 mg) PO 05/14/23 06/02/23 DAILY #30 tabs varicella-zoster glycoE [id number] 0.5 ml IM ONCE #1 ea 05/14/23 06/02/23 adj(PF) 50 mcg/0.5 mL IM susp, kit flash glucose scanning reader #3 ea 05/18/23 06/02/23 (FreeStyle Luis 14 Day [place]) flash glucose sensor (FreeStyle #3 ea 05/18/23 06/02/23 Luis 14 Day Sensor kit) metformin 500 mg tablet,extended 1,000 mg (2 x 500 mg) PO BID #360 05/18/23 06/02/23 release 24 hr tabs metoprolol succinate 25 mg 25 mg PO DAILY #90 tabs 05/18/23 06/02/23 tablet,extended release 24 hr insulin degludec 200 unit/mL (3 60 unit (0.3 mL) subcut QHS #12 06/15/23 mL) subcutaneous pen SYRGS Previous Rx's Medication Instructions Recorded nitroglycerin 0.4 mg sublingual 0.4 mg sublingual ONCE PRN chest 04/19/21 tablet pain #30 tabs blood sugar diagnostic (FreeStyle #10 ea 07/19/21 Precision Serg Strips) lancets (OneTouch UltraSoft #200 ea 07/19/21 Lancets) glipizide 5 mg tablet, extended 5 mg PO DAILY #90 tabs 07/31/22 release 24 hr pen needle, diabetic 32 gauge x #200 ea 09/11/2232 (BD Ultra-Fine Leah Pen Needle) cyclobenzaprine 5 mg tablet 5 - 10 mg (1 - 2 x 5 mg) PO TID 11/24/22 PRN muscle spasm #60 tabs chlorthalidone 25 mg tablet 25 mg PO DAILY #90 tabs 12/03/22 lisinopril 20 mg tablet 20 mg PO BID #180 tabs 12/03/22 semaglutide 14 mg tablet 14 mg PO DAILY #90 tabs 12/03/22 ezetimibe 10 mg tablet (Zetia) 10 mg PO DAILY #90 tabs 06/09/23 bupropion HCl 150 mg 24 hr tablet, 150 mg PO QAM #90 tabs 04/08/23 extended release amlodipine 10 mg tablet 10 mg PO DAILY #90 tabs 04/16/23 zolpidem 6.25 mg tablet,extended 6.25 mg PO QHS PRN insomnia #30 04/28/23 release,multiphase tabs prednisone 20 mg tablet 10 - 60 mg (0.5 - 3 x 20 mg) PO 05/14/23 DAILY #30 tabs varicella-zoster glycoE vacc-[id number] 0.5 ml IM ONCE #1 ea 05/14/23 adj(PF) 50 mcg/0.5 mL IM susp, kit flash glucose scanning reader #3 ea 05/18/23 (FreeStyle Luis 14 Day [place]) flash glucose sensor (FreeStyle #3 ea 05/18/23 Luis 14 Day Sensor kit) metformin 500 mg tablet,extended 1,000 mg (2 x 500 mg) PO BID #360 05/18/23 release 24 hr tabs metoprolol succinate 25 mg 25 mg PO DAILY #90 tabs 05/18/23 tablet,extended release 24 hr insulin degludec 200 unit/mL (3 60 unit (0.3 mL) subcut QHS #12 06/15/23 mL) subcutaneous pen SYRGS Allergies Allergy/AdvReac Type Severity Reaction Status Date / Time HMG-CoA REDUCTASE INHIBITORS AdvReac Intermediate MYALGIA Uncoded 06/02/23 08:56 General Stated Complaint: Chest Pain RADHA: 3 PFSH All Active Problems (Updated 07/06/23 @ 16:25 by Flavio Kim MD) Chest pain (Acute) Rotator cuff arthropathy of right shoulder (Acute) CKD (chronic kidney disease) stage 3, GFR 30-59 ml/min (Chronic) Type 2 diabetes mellitus with hyperlipidemia (Chronic) Coronary artery disease, non-occlusive (Chronic) LHC, RHC at [facility] [place] 06/2018 Obstructive sleep apnea (Chronic) Hyperlipidemia (Chronic) Essential hypertension (Chronic) Pulmonary arterial hypertension (Chronic) Insomnia (Chronic) Obesity (Chronic) Medical History Cerebrovascular accident (CVA) Silent, unknown when occurred but lacunar infarcts seen on head CTs as old as 2014 Fracture of right orbital floor Pericarditis 2000 Post concussion syndrome Syncope Tubular adenoma of colon Surgical History H/O arthroscopy of left knee S/P colonoscopy (07/28/16) S/P right rotator cuff repair (09/08/03) S/P trigger finger release (09/06/04) Bilateral index fingers Family History Mother , at 59 Stroke Hypertension Father , at 58 CAD (coronary artery disease) Liver cancer Sister No problems noted. Brother No problems noted. Son No problems noted. Son No problems noted. Maternal Grandfather No problems noted. Maternal Grandmother No problems noted. Paternal Grandfather No problems noted. Paternal Grandmother No problems noted. Daughter Down syndrome Social History (Updated 11/24/22 @ 12:07 by Karla Nolasco) Smoking/Tobacco Use Status: Former Tobacco Use tobacco type: cigarettes Tobacco: How many years used: 16 Quit status: quit date established Second Hand Exposure: No Smoking risk assessment performed?: Yes Alcohol Intake: current Alcohol Intake frequency: a few times a month Alcohol type: beer and wine Drug use: Never Substance use type: does not use Caregiver/Support person: No Household members: spouse and children Housing: house Communication Needs: None Do you need help understanding health information?: Never Pets and animals: Yes Pets and animals: cat(s) and dog(s) Sexually active: Yes Do you think of yourself as: straight/heterosexual Current gender identity: male What is your relationship status?: How often do you talk on the phone with friends or family?: three or more times per week How often do you get together with friends or relatives?: three or more times per week How often do you attend anglican or voodoo services?: decline to answer Do you belong to any clubs or organized social groups?: yes Panel score (0-1 are the most socially isolated patients): 3 What type of physical activity do you participate in: none Duration: 15-30 minutes/day Frequency: does not exercise Heidi/Taoism: Holiness Special heidi needs: No Seatbelt use: always Helmet use: Yes Helmet use: always Drive intox or ride w/intox nascar driver: No Do you feel safe at home: Yes Do you feel safe in your relationship?: Yes Exam Narrative Exam Narrative: Review of Systems: All systems reviewed & are unremarkable except as noted in HPI and below Exam: Const: Well-nourished, Well-developed, appearing stated age HEENT: NACT / Eyes: PERRL, no conjunctival injection, and symmetrical lids / EARS Atraumatic external nose and ears / MOUTH Moist MM / NECK: Symmetric, trachea midline, No thyromegaly / THROAT oropharynx clear CVS: RRR, No murmurs or gallops. Peripheral pulses 2+ and equal in all extremities. Brisk capillary refill in all extremities. RESP: Unlabored respiratory effort, Clear to auscultation bilaterally. No wheezes rales or rhonchi GI: Soft, Nontender/Nondistended, No hepatosplenomegaly. No guarding or rebound. MSK: Extremities w/o deformity or TTP, No cyanosis or clubbing, full range of motion Skin: Warm, Dry. No rashes or lesions. Neuro: cleaning matron II-XII grossly intact. Sensation grossly intact, no focal neurologic deficits. Psych: (AAO) x3. Appropriate mood and affect Course Vital Signs Vital signs: Vital Signs Pulse 78 07/06/23 14:41 Respiratory Rate 18 07/06/23 14:41 Blood Pressure 125/64 07/06/23 14:41 Pulse Oximetry 97 07/06/23 14:41 Pulse 78 07/06/23 14:41 Respiratory Rate 18 07/06/23 14:41 Respiratory Effort Normal, Non-Labored 07/06/23 14:48 Respiratory Depth Normal 07/06/23 14:48 Respiratory Pattern Normal 07/06/23 14:48 Blood Pressure 125/64 07/06/23 14:41 Pulse Oximetry 97 07/06/23 14:41 Oxygen Delivery Method Room Air 07/06/23 14:41 Oxygen Flow Rate 0 07/06/23 14:41 Pain Level 0 07/06/23 14:48 Comment 7/10 headache 07/06/23 14:41 Lab/Test Results Lab/Test Results: Laboratory Tests Range/Units 07/06/23 07/06/23 14:51 14:52 WBC (4.4-10.8) 10^3/uL 6.81 Cancelled RBC (4.36-5.78) 10^6/uL 3.96 L Cancelled Hgb (13.5-17.5) g/dL 11.9 L Cancelled Hct (40.0-50.0) % 35.9 L Cancelled MCV (80-95) fL 91 Cancelled MCH (27.0-33.0) pg 30.1 Cancelled MCHC (32.0-36.0) % 33.1 Cancelled RDW (11.8-14.1) % 12.4 Cancelled Plt Count (130-400) 10^3/uL 271 Cancelled MPV (8.0-11.0) fL 9.4 Cancelled Immature Gran % 0.4 Neutrophils % 58.2 Lymphocytes % 30.4 Monocytes % 4.7 Eosinophils % 5.9 Basophils % 0.4 Nucleated RBC % (0.0-0.3) % 0.0 Absolute Neutrophils (1.2-6.7) 10^3/uL 3.96 Absolute Lymphocytes (1.2-3.4) 10^3/uL 2.07 Absolute Monocytes (0.1-0.8) 10^3/uL 0.32 Absolute Eosinophils (0.0-0.7) 10^3/uL 0.40 Absolute Basophils (0.0-0.2) 10^3/uL 0.03 PT (9.1-11.1) sec 9.7 INR (0.9-1.1) 1.0 APTT (23.6-32.8) sec 25.2 Sodium (136-145) mmol/L 138 Potassium (3.5-5.1) mmol/L 3.8 Chloride (98-107) mmol/L 105 Carbon Dioxide (21.0-32.0) mmol/L 24.3 Anion Gap (3-11) mmol/L 8.7 BUN (7-18) mg/dL 32 H Creatinine (0.70-1.30) mg/dL 1.7 H Est GFR (CKD-EPI 2020) (mL/min/1.73m2) 42.83 Glucose (74-106) mg/dL 235 H Calcium (8.5-10.1) mg/dL 9.0 Magnesium (1.8-2.4) mg/dL 2.3 Total Bilirubin (0.2-1.0) mg/dL 0.2 AST (15-37) U/L 17 ALT (16-63) U/L 35 Alkaline Phosphatase (46-116) U/L 101 Troponin I (<or=60) ng/L < 50 NT-Pro-B Natriuret Pep (<300) pg/mL 64 Total Protein (6.4-8.2) g/dL 6.7 Albumin (3.4-5.0) g/dL 3.2 L
[2023-07-06 16:31] LABS: Source Nasal/Nares
[2023-07-06 17:06] LABS: COVID-19 PCR Negative (Negative)
--- NOTE | 2023-07-06 19:45 | W.PM.HP.N ---
Date of service: 07/06/23 Time of Service: 18:00 Assessment and Plan Assessment and plan (1) Chest pain: Status: Acute Assessment and plan: No pain at present Trend trops - first neg, 2nd pending on adm Stress test pending Echo pending Telemetry (2) CKD (chronic kidney disease) stage 3, GFR 30-59 ml/min: Status: Chronic Assessment and plan: Creatinine 1.7 (3) Obstructive sleep apnea: Status: Chronic (4) Essential hypertension: Status: Chronic Assessment and plan: continue home meds, hold metoprolol for stress test (5) Insomnia: Status: Chronic Assessment and plan: Continue home ambien (6) Obesity: Status: Chronic (7) Coronary artery disease, non-occlusive: Status: Chronic Assessment and plan: As above (8) Type 2 diabetes mellitus with hyperlipidemia: Status: Chronic Assessment and plan: SS insulin FSBS ACHS (9) DVT prophylaxis: Status: Acute Assessment and plan: Heparin 5000 units sc bic (10) Discharge planning issues: Status: Acute Assessment and plan: Home when stable; cardiology discussed with Dr Garcia History of Present Illness History of Present Illness Chief Complaint: Chest pain Narrative: This is a 68-year-old male patient with past medical history of CKD, WERNER, diabetes, and hypertension who presented to the [facility] ED for evaluation of chest pain. He reported acute onset of nausea earlier today that then progressed to substernal chest pressure, diaphoresis and shortness of breath. Symptoms were reported by him as severe. He reported he was so sweaty his hair was soaking wet. He was trying to drive to the hospital, but felt so bad that he had to sample puller and called 911. On EMS arrival, his chest pressure had resolved. He was given aspirin. He denied ever having symptoms like this before and no cardiac history. In the ED labs remarkable for glucose 235 and creatinine 1.7. CXR unremarkable. Troponin negative < 50. EKG normal sinus rhythm 70 bpm. Patient remained pain free. Secondary to story patient is placed on observation status on the medical floor for serial troponin and telemetry. Review of Systems All systems reviewed & are unremarkable except as noted in HPI and below PFSH All Active Problems (Updated 07/06/23 @ 20:02 by Cookie Black NP) Discharge planning issues (Acute) DVT prophylaxis (Acute) Chest pain (Acute) Rotator cuff arthropathy of right shoulder (Acute) CKD (chronic kidney disease) stage 3, GFR 30-59 ml/min (Chronic) Type 2 diabetes mellitus with hyperlipidemia (Chronic) Coronary artery disease, non-occlusive (Chronic) LHC, RHC at [facility] [place] 06/2018 Obstructive sleep apnea (Chronic) Hyperlipidemia (Chronic) Essential hypertension (Chronic) Pulmonary arterial hypertension (Chronic) Insomnia (Chronic) Obesity (Chronic) Medical History Cerebrovascular accident (CVA) Silent, unknown when occurred but lacunar infarcts seen on head CTs as old as 2014 Fracture of right orbital floor Pericarditis 2000 Post concussion syndrome Syncope Tubular adenoma of colon Surgical History H/O arthroscopy of left knee S/P colonoscopy (07/28/16) S/P right rotator cuff repair (09/08/03) S/P trigger finger release (09/06/04) Bilateral index fingers Family History Mother , at 59 Stroke Hypertension Father , at 58 CAD (coronary artery disease) Liver cancer Sister No problems noted. Brother No problems noted. Son No problems noted. Son No problems noted. Maternal Grandfather No problems noted. Maternal Grandmother No problems noted. Paternal Grandfather No problems noted. Paternal Grandmother No problems noted. Daughter Down syndrome Social History (Updated 11/24/22 @ 12:07 by Karla Nolasco) Smoking/Tobacco Use Status: Former Tobacco Use tobacco type: cigarettes Tobacco: How many years used: 16 Quit status: quit date established Second Hand Exposure: No Smoking risk assessment performed?: Yes Alcohol Intake: current Alcohol Intake frequency: a few times a month Alcohol type: beer and wine Drug use: Never Substance use type: does not use Caregiver/Support person: No Household members: spouse and children Housing: house Communication Needs: None Do you need help understanding health information?: Never Pets and animals: Yes Pets and animals: cat(s) and dog(s) Sexually active: Yes Do you think of yourself as: straight/heterosexual Current gender identity: male What is your relationship status?: How often do you talk on the phone with friends or family?: three or more times per week How often do you get together with friends or relatives?: three or more times per week How often do you attend yazidism or sabianism services?: decline to answer Do you belong to any clubs or organized social groups?: yes Panel score (0-1 are the most socially isolated patients): 3 What type of physical activity do you participate in: none Duration: 15-30 minutes/day Frequency: does not exercise Heidi/Mormon: Oriental Orthodox Special heidi needs: No Seatbelt use: always Helmet use: Yes Helmet use: always Drive intox or ride w/intox petroleum transport driver: No Do you feel safe at home: Yes Do you feel safe in your relationship?: Yes Meds Allergies and Home Medications Allergies Allergy/AdvReac Type Severity Reaction Status Date / Time HMG-CoA REDUCTASE INHIBITORS AdvReac Intermediate MYALGIA Uncoded 06/02/23 08:56 Home Medications Medication Instructions Recorded Confirmed Type aspirin 81 mg tablet,delayed 81 mg PO DAILY 05/31/18 07/06/23 History release (Adult Aspirin Regimen) cetirizine 10 mg capsule (All Day 10 mg PO DAILY 05/31/18 07/06/23 History Allergy (cetirizine)) nitroglycerin 0.4 mg sublingual 0.4 mg sublingual ONCE PRN chest 04/19/21 07/06/23 Rx tablet pain #30 tabs blood sugar diagnostic (FreeStyle #10 ea 07/19/21 06/02/23 Rx Precision Serg Strips) lancets (OneTouch UltraSoft #200 ea 07/19/21 06/02/23 Rx Lancets) glipizide 5 mg tablet, extended 5 mg PO DAILY #90 tabs 07/31/22 07/06/23 Rx release 24 hr pen needle, diabetic 32 gauge x #200 ea 09/11/22 06/02/23 Rx 5/32 (BD Ultra-Fine Leah Pen Needle) cyclobenzaprine 5 mg tablet 5 - 10 mg (1 - 2 x 5 mg) PO TID 11/24/22 07/06/23 Rx PRN muscle spasm #60 tabs chlorthalidone 25 mg tablet 25 mg PO DAILY #90 tabs 12/03/22 07/06/23 Rx lisinopril 20 mg tablet 20 mg PO BID #180 tabs 12/03/22 07/06/23 Rx semaglutide 14 mg tablet 14 mg PO DAILY #90 tabs 12/03/22 07/06/23 Rx ezetimibe 10 mg tablet (Zetia) 10 mg PO DAILY #90 tabs 02/27/23 07/06/23 Rx bupropion HCl 150 mg 24 hr tablet, 150 mg PO QAM #90 tabs 04/08/23 07/06/23 Rx extended release amlodipine 10 mg tablet 10 mg PO DAILY #90 tabs 04/16/23 07/06/23 Rx zolpidem 6.25 mg tablet,extended 6.25 mg PO QHS PRN insomnia #30 04/28/23 07/06/23 Rx release,multiphase tabs prednisone 20 mg tablet 10 - 60 mg (0.5 - 3 x 20 mg) PO 05/14/23 07/06/23 Rx DAILY #30 tabs flash glucose scanning reader #3 ea 05/18/23 06/02/23 Rx (FreeStyle Luis 14 Day [place]) flash glucose sensor (FreeStyle #3 ea 05/18/23 06/02/23 Rx Luis 14 Day Sensor kit) metformin 500 mg tablet,extended 1,000 mg (2 x 500 mg) PO BID #360 05/18/23 07/06/23 Rx release 24 hr tabs metoprolol succinate 25 mg 25 mg PO DAILY #90 tabs 05/18/23 07/06/23 Rx tablet,extended release 24 hr insulin degludec 200 unit/mL (3 60 unit (0.3 mL) subcut QHS #12 06/15/23 07/06/23 Rx mL) subcutaneous pen SYRGS Exam Narrative Exam Narrative: Const: Well-nourished, Well-developed, appearing stated age HEENT: Eyes: PERRL, no conjunctival injection, and symmetrical lids / EARS Atraumatic external nose and ears / MOUTH Moist MM / NECK: Symmetric, trachea midline, No thyromegaly / THROAT oropharynx clear CVS: RRR, No murmurs or gallops. Peripheral pulses 2+ and equal in all extremities. Brisk capillary refill in all extremities. RESP: Unlabored respiratory effort, Clear to auscultation bilaterally. No wheezes rales or rhonchi GI: Soft, Nontender/Nondistended, No hepatosplenomegaly. No guarding or rebound. MSK: Extremities w/o deformity or TTP, No cyanosis or clubbing, full range of motion Skin: Warm, Dry. No rashes or lesions. 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 Sensation grossly intact, no focal neurologic deficits. Psych: (AAO) x3. Appropriate mood and affect Results Labs 07/06/23 14:51 07/06/23 14:51 Labs: Laboratory Results - last 24 hr 07/06/23 07/06/23 07/06/23 14:51 14:52 16:28 WBC 6.81 Cancelled RBC 3.96 L Cancelled Hgb 11.9 L Cancelled Hct 35.9 L Cancelled MCV 91 Cancelled MCH 30.1 Cancelled MCHC 33.1 Cancelled RDW 12.4 Cancelled Plt Count 271 Cancelled MPV 9.4 Cancelled Immature Gran % 0.4 Neutrophils % 58.2 Lymphocytes % 30.4 Monocytes % 4.7 Eosinophils % 5.9 Basophils % 0.4 Nucleated RBC % 0.0 Absolute Neutrophils 3.96 Absolute Lymphocytes 2.07 Absolute Monocytes 0.32 Absolute Eosinophils 0.40 Absolute Basophils 0.03 PT 9.7 INR 1.0 APTT 25.2 Sodium 138 Potassium 3.8 Chloride 105 Carbon Dioxide 24.3 Anion Gap 8.7 BUN 32 H Creatinine 1.7 H Est GFR (CKD-EPI 2020) 42.83 Glucose 235 H Calcium 9.0 Magnesium 2.3 Total Bilirubin 0.2 AST 17 ALT 35 Alkaline Phosphatase 101 Troponin I < 50 NT-Pro-B Natriuret Pep 64 Total Protein 6.7 Albumin 3.2 L COVID-19 Source Nasal/Nares SARS-CoV-2 (PCR) Negative Last Vital Signs Temp 36.7 C 07/06/23 19:26 Pulse 70 07/06/23 19:26 Resp 18 07/06/23 19:26 BP 139/75 07/06/23 19:26 Pulse Ox 95 07/06/23 19:26 Time Spent Time spent with Patient: 55-74 minutes Time was spent: preparing to see the patient(eg.review tests), obtaining and/or reviewing separately otained hiistory, ordering medications,tests, procedures, referring, communicating with other health career and technology education teacher, indepentently interpreting results, counseling the patient and care coordination
[2023-07-06 20:12] LABS: Troponin I < 50 ng/L (<or=60)
[2023-07-06] MEDS: Lisinopril 20 MG TAB PO (21:08)
[2023-07-06] MEDS: Insulin Aspart 300 UNITS/3 ML PEN SC (21:40)
[2023-07-06 23:18] LABS: Troponin I < 50 ng/L (<or=60)
[2023-07-06] MEDS: Zolpidem 6.25 MG TABCR PO (23:43)
--- NOTE | 2023-07-07 | DI.US_ITS ---
APPROVED REPORT EXAM: Comprehensive 2D, Doppler, and color-flow Echocardiogram Patient Location: In-Patient Room/Bed: 230 Major Gifts Manager: Bria Anand RDCS (AE) Indications: Chest pain, DM, HTN Other Information Study Quality: Adequate. Technically limited study due to body habitus. Conclusion Normal left ventricular wall thickness and chamber size. Ejection fraction is 60%. Wall motion is n ormal. There is stage I diastolic dysfunction Normal right ventricular size and systolic function Both atria are normal in size There is no structural or hemodynamically significant valvular disease Mildly dilated ascending aorta measuring 3.64 cm Wall motion Left Ventricle The left ventricle is normal size. The left ventricular systolic function is normal. The left ventric ular ejection fraction is within the normal range. There is normal left ventricular wall thickness. T here is normal LV segmental wall motion. There is no ventricular septal defect visualized. LVEF is 60 %. Right Ventricle The right ventricle is normal size. The right ventricular systolic function is normal. Atria The left atrium size is normal. The right atrium size is normal. The interatrial septum is intact wit h no evidence for an atrial septal defect. Aortic Valve The aortic valve is normal in structure. Aortic valve is trileaflet. There is no aortic valvular sten osis. No aortic regurgitation is present. Mitral Valve The mitral valve is normal in structure. No evidence of mitral valve stenosis. Trace mitral regurgita tion. Tricuspid Valve The tricuspid valve is normal in structure. There is no tricuspid valve stenosis. Trace tricuspid reg urgitation. Pulmonic Valve The pulmonary valve is normal in structure. There is no pulmonic valvular stenosis. Trace pulmonic re gurgitation. Great Vessels The aortic root is normal in size. The ascending aorta is mildly dilated. Aortic arch is not well vi sualized. The IVC was not visualized technically limited. Pericardium There is no pericardial effusion. 2D Dimensions IVSD d PLAX 1.03 cm M: 0.6-1.2 Ao Root d 3.66 cm M: 3.1 - 3.7 LVPW d PLAX 1.03 cm M: 0.6 - 1.2 Ao Asc Diam d 3.64 cm M: 2.6 - 3.4 LVID d PLAX 5.37 cm M: 4.2 - 5.8 LVDs 3.71 cm M: 2.5 - 4.0 LV EF Teichholz 58.1 % FS 30.90 % LV EDV (Teich) 139.7 mL LV ESV (Teich) 58.6 mL M-Mode TAPSE 2.60 cm (M/F) >1.7 Auto EF LV EDV A4C 151.6 mL LV EDV A2C 100.2 mL LV EDV BP 122.1 mL LV ESV A4C 64.9 mL LV ESV A2C 43.9 mL LV ESV BP 53.5 mL LVEF(%) A4C 57.2 % LVEF(%) A2C 56.2 % LVEF(%) BP 56.2 % LV SV A4C 86.7 ml LV SV A2C 56.3 ml LV SV BP 68.6 ml LV CO A4C 5.0 L/min LV CO A2C 3.5 L/min LV CO BP 4.3 L/min HR A4C 58.26 BPM HR A2C 61.65 BPM LV EDV Index (BP) LA Volume LA Length A4C 4.7 cm LA Length A2C 5.4 cm LA Area A4C s 19.56 cm2 LA Area A2C s 19.24 cm2 LA Vol A4C A-L 69.26 mL LA Vol A2C A-L 58.44 mL LA Vol Biplane A-L 68.1 mL LA Vol/BSA A4C A-L LA Vol/BSA A2C A-L LA Vol/BSA BP A-L 29.5 mL/m2 LA Vol A4C MOD 63.3 mL LA Vol A2C MOD 55.2 mL LA Vol BP MOD 63.1 mL RA Volume RA Area A4C 16.3 cm2 RA ESV A4C (A-L) 44.1mL RA Vol/BSA A4C A-L RA Length A4C 5.1 cm RA ESV A4C (MOD) 41.3mL LV Diastology MV E' medial 0.072 (>0.07 m/s) MV E Vmax 0.96 (0.4-1.3 m/s) MV E/E' MED 13.34 (<14) MV A Vmax 0.95 (0.4-1.3 m/s) MV E' lateral 0.072 (>0.1 m/s) E/A Ratio 1.0 MV E/E' LAT 13.34 (<14) MV E' Average 0.072 m/s MV E/E'(average) 13.34 Aortic Valve AoV Vmax 1.20 m/s LVOT Vmax 1.11 m/s AoV Peak Grad 5.8 mmHg LVOT Peak Grad 4.9 mmHg AoV Area (Vmax) 3.54 cm2 LVOT VTI 0.253 m AoV VTI 0.280 m LVOT Mean Grad 2.4 mmHg AoV Mean Zachary. 0.82 m/s LVOT SV 97.38 mL AoV Mean Grad 3.1 mmHg LVOT Diam s 2.20 cm AoV Area (VTI) 3.48 cm2 Velocity Ratio 0.93 Mitral Valve MV DT 177 (160-240 msec) MV Vmax TIPS 0.93 m/s MV Mean Grad 1.4 (<2mmHg) MV VTI 0.358 m Pulmonary Valve PV Vmax 1.06 (0.5-1.5 m/s) RVOT Vmax 0.92 m/s PV Peak Grad 4.5 mmHg RVOT Peak Gr. 3.4 mmHg PV Mean Zachary 0.80 m/s RVOT VTI 0.205 m PV Mean Grad 2.8 mmHg RVOT Mean Gr. 1.8 mmHg Tricuspid Valve TV S' 0.24 m/s
[2023-07-07 03:30] VITALS: BP 143/75; PULSE 60; RESP 18; TEMP 36.6; O2SAT 99
[2023-07-07 07:10] LABS: Abs Immature Grans 0.02 10^3/uL (0.0-0.06); Absolute Basophil Count 0.02 10^3/uL (0.0-0.2); Absolute Eosinophil Count 0.41 10^3/uL (0.0-0.7); Absolute Lymphocyte Count 1.91 10^3/uL (1.2-3.4); Absolute Monocyte Count 0.52 10^3/uL (0.1-0.8); Absolute Neutrophil Count 4.72 10^3/uL (1.2-6.7); Basophils % 0.3; Eosinophils % 5.4; HCT 36.3 % (40.0-50.0); HGB 12.1 g/dL (13.5-17.5); Immature Grans % 0.3; Lymphocytes % 25.1; MCH 30.3 pg (27.0-33.0); MCHC 33.3 % (32.0-36.0); MCV 91 fL (80-95); MPV 9.6 fL (8.0-11.0); Monocytes % 6.8; Neutrophils % 62.1; Platelet Count 272 10^3/uL (130-400); RBC 3.99 10^6/uL (4.36-5.78); RDW 12.4 % (11.8-14.1); RDW-SD 41.3 fL
[2023-07-07 07:28] LABS: Anion Gap 10.4 mmol/L (3-11); BUN 24 mg/dL (7-18); CO2 23.6 mmol/L (21.0-32.0); CREATININE 1.5 mg/dL (0.70-1.30); Chloride 108 mmol/L (98-107); Estimated GFR 49.77 (mL/min/1.73m2); Glucose 121 mg/dL (74-106); Magnesium 2.2 mg/dL (1.8-2.4); Sodium 142 mmol/L (136-145)
[2023-07-07 07:55] VITALS: BP 156/79; PULSE 60; RESP 18; TEMP 36.7; O2SAT 96
[2023-07-07] MEDS: Chlorthalidone 25 MG TAB PO (08:20)
[2023-07-07] MEDS: Aspirin E.C. 81 MG TABEC PO (08:20)
[2023-07-07] MEDS: amLODIPine 10 MG TAB PO (08:20)
[2023-07-07] MEDS: Cetirizine 10 MG TAB PO (08:20)
[2023-07-07] MEDS: buPROPion-XL 150 MG TABCR PO (08:20)
[2023-07-07] MEDS: Lisinopril 20 MG TAB PO (08:21)
[2023-07-07] MEDS: glipiZIDE C.R. 5 MG TABCR PO (08:21)
[2023-07-07 10:55] VITALS: BP 155/80; PULSE 66; RESP 18; TEMP 36.1; O2SAT 98
--- NOTE | 2023-07-07 11:09 | W.PM.PROGNOT ---
Date of Service Date of service: 07/07/23 Time of Service: 11:09 Assessment and Plan Assessment and plan (1) Chest pain: Status: Acute Assessment and plan: No pain at present or overninght Troponin negative X3 Stress test pending Echo LVEF 60%, stage I diastolic dysfuntion Telemetry SR 63 this AM (2) CKD (chronic kidney disease) stage 3, GFR 30-59 ml/min: Status: Chronic Assessment and plan: Creatinine is 1.5 this AM was 1.7 (3) Obstructive sleep apnea: Status: Chronic (4) Essential hypertension: Status: Chronic Assessment and plan: continue home meds, hold metoprolol for stress test (5) Insomnia: Status: Chronic Assessment and plan: Continue home ambien (6) Obesity: Status: Chronic Assessment and plan: Heart healthy diet but NPO for stress test (7) Coronary artery disease, non-occlusive: Status: Chronic Assessment and plan: As above, no further symptoms overnight (8) Type 2 diabetes mellitus with hyperlipidemia: Status: Chronic Assessment and plan: Glucose 108-120 past 24 hours Will continue present regimen with FSBS ACHS and SS insulin (9) DVT prophylaxis: Status: Acute Assessment and plan: Will continue Heparin 5000 units sc Q 12 (10) Discharge planning issues: Status: Acute Assessment and plan: Home when stable pssibly post stress test if negative; FU cardiology discussed with Dr Garcia Subjective Subjective Patient reports: no new complaints, feels better, still having pain (The patient reports that pain is well manage with current pain medicine regimen), pain is less (Pain was /10 and /10 after pain medicine administration), tolerating liquids well, tolerating a regular diet, voiding w/o difficulty, bowel movement, shortness of breath and afebrile; denies flatus, diarrhea, nausea or vomiting Exam Narrative Exam Narrative: Const: Well-nourished, Well-developed, appearing stated age HEENT: Eyes: PERRL, no conjunctival injection, and symmetrical lids / EARS Atraumatic external nose and ears / MOUTH Moist MM / NECK: Symmetric, trachea midline, No thyromegaly / THROAT oropharynx clear CVS: RRR, No murmurs or gallops. Peripheral pulses 2+ and equal in all extremities. Brisk capillary refill in all extremities. RESP: Unlabored respiratory effort, Clear to auscultation bilaterally. No wheezes rales or rhonchi GI: Soft, Nontender/Nondistended, No hepatosplenomegaly. No guarding or rebound. MSK: Extremities w/o deformity or TTP, No cyanosis or clubbing, full range of motion Skin: Warm, Dry. No rashes or lesions. 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 Sensation grossly intact, no focal neurologic deficits. Psych: (AAO) x3. Appropriate mood and affect Objective Last Vital Signs Temp 36.1 C L 07/07/23 10:55 Pulse 66 07/07/23 10:55 Resp 18 07/07/23 10:55 BP 155/80 H 07/07/23 10:55 Pulse Ox 98 07/07/23 10:55 Laboratory Results - last 24 hr 07/06/23 07/06/23 07/06/23 14:51 14:52 16:28 WBC 6.81 Cancelled RBC 3.96 L Cancelled Hgb 11.9 L Cancelled Hct 35.9 L Cancelled MCV 91 Cancelled MCH 30.1 Cancelled MCHC 33.1 Cancelled RDW 12.4 Cancelled Plt Count 271 Cancelled MPV 9.4 Cancelled Immature Gran % 0.4 Neutrophils % 58.2 Lymphocytes % 30.4 Monocytes % 4.7 Eosinophils % 5.9 Basophils % 0.4 Nucleated RBC % 0.0 Absolute Neutrophils 3.96 Absolute Lymphocytes 2.07 Absolute Monocytes 0.32 Absolute Eosinophils 0.40 Absolute Basophils 0.03 PT 9.7 INR 1.0 APTT 25.2 Sodium 138 Potassium 3.8 Chloride 105 Carbon Dioxide 24.3 Anion Gap 8.7 BUN 32 H Creatinine 1.7 H Est GFR (CKD-EPI 2020) 42.83 Glucose 235 H Calcium 9.0 Magnesium 2.3 Total Bilirubin 0.2 AST 17 ALT 35 Alkaline Phosphatase 101 Troponin I < 50 NT-Pro-B Natriuret Pep 64 Total Protein 6.7 Albumin 3.2 L COVID-19 Source Nasal/Nares SARS-CoV-2 (PCR) Negative 07/06/23 07/06/23 07/06/23 17:52 19:43 22:55 WBC RBC Hgb Hct MCV MCH MCHC RDW Plt Count MPV Immature Gran % Neutrophils % Lymphocytes % Monocytes % Eosinophils % Basophils % Nucleated RBC % Absolute Neutrophils Absolute Lymphocytes Absolute Monocytes Absolute Eosinophils Absolute Basophils PT INR APTT Sodium Potassium Chloride Carbon Dioxide Anion Gap BUN Creatinine Est GFR (CKD-EPI 2020) Glucose Calcium Magnesium Total Bilirubin AST ALT Alkaline Phosphatase Troponin I Cancelled < 50 < 50 NT-Pro-B Natriuret Pep Total Protein Albumin COVID-19 Source SARS-CoV-2 (PCR) 07/07/23 06:49 WBC 7.60 RBC 3.99 L Hgb 12.1 L Hct 36.3 L MCV 91 MCH 30.3 MCHC 33.3 RDW 12.4 Plt Count 272 MPV 9.6 Immature Gran % 0.3 Neutrophils % 62.1 Lymphocytes % 25.1 Monocytes % 6.8 Eosinophils % 5.4 Basophils % 0.3 Nucleated RBC % 0.0 Absolute Neutrophils 4.72 Absolute Lymphocytes 1.91 Absolute Monocytes 0.52 Absolute Eosinophils 0.41 Absolute Basophils 0.02 PT INR APTT Sodium 142 Potassium 4.0 Chloride 108 H Carbon Dioxide 23.6 Anion Gap 10.4 BUN 24 H Creatinine 1.5 H Est GFR (CKD-EPI 2020) 49.77 Glucose 121 H Calcium 9.0 Magnesium 2.2 Total Bilirubin AST ALT Alkaline Phosphatase Troponin I NT-Pro-B Natriuret Pep Total Protein Albumin COVID-19 Source SARS-CoV-2 (PCR)
--- NOTE | 2023-07-07 14:00 | DI.NM_ITS ---
APPROVED REPORT Exam: Pharmacologic Patient Location: In-Patient Room/Bed: Stress Nurse: Becky Gasca RN Ordering Provider:KENNEDI MEYERSY, Contact Number: [phone] BMI: 30.86 Baseline Rhythm: Sinus Rhythm Indications: Chest pain Medical History Medical History: CKD, WERNER, HTN, insomnia, obesity, CAD, DMII, HLD, silent CVA, pericarditis, syncope, concussion Cardiac Medications: Asa, nitro, lisinopril, zetia, amlodipime, metoprolol, glipizide, clorthalidone, ozempic, metformin, insulin Allergies: HMG-COA Reductase inhibitors Cardiac Risk Factors: Family hx, HTN, HLD, diabetes, former smoker, obesity Previous Cardiac Procedures: None Pretest Chest Pain Characteristics: None Exercise History: Sedentary Physical Disabilities: None Lung Sounds: Clear to auscultation Heart Sounds: Regular Stress Test Details Test: Pharmacologic stress testing performed using 0.4 mg of regadenoson per 5 mL given IV over 10 s econds. Reason for pharmacologic stress test: inadequate footwear, patient declined treadmill. Nuclear Acquisition: Rest Tc-99m/Stress Tc-99m 1 day Rest Isotope: Tc-99m Sestamibi. Dose: 11.0 Date: 07/07/2023 Injection Time: 1120 Stress Isotope: Tc-99m Sestamibi. Dose: 33.0 Date: 07/07/2023 Injection Time: 1335 HR Resting HR Supine: 64 bpm Max Heart Rate (APMHR): 150.721631 bpm Target HR (85% APMHR): 127.534796 bpm Max HR Achieved: 87 bpm % of APMHR: 58.00 Recovery HR: 70 bpm BP Resting BP Supine: 150/82 mmHg Max BP: 150/82 mmHg Recovery BP: 138/76 mmHg ECG Resting ECG: Sinus Rhythm Ectopy: None Stress ECG: Sinus Rhythm ST Change: Nondiagnostic low heart rate Arrhythmia: None Recovery ECG: Sinus Rhythm Recovery ST Change: Nondiagnostic low heart rate Recovery Arrhythmia: None Clinical Stress Symptoms: Mild SOB Angina Score: None Rate Pressure Product: [id number] Stress ECG Conclusion 1. Resting electrocardiogram showed poor R wave progression 2. Patient underwent testing using pharmacologic stress with regadenoson. Reportedly he refused ambu lation on the treadmill 3. The electrocardiographic portion of the test was nondiagnostic 4. See MPI report MPI Conclusion Myocardial perfusion is normal. There is no ischemia or evidence of prior infarction Ejection fraction is 54% with normal wall motion Radiologist Interpretation Radiologist agrees with Boilermaker Fitter's Interpretation. Radiologist Interpretation by: Adam Voss MD Interpretation Date/Time: 07/07/2023 18:10:47
--- NOTE | 2023-07-07 15:05 | PHA.REVIEW2 ---
Pharmacy Admission Review Admission Clinical Review Admission Pharmacy Review: (Updated 07/06/23 @ 20:02 by Cookie Black NP) Discharge planning issues (Acute) DVT prophylaxis (Acute) Chest pain (Acute) HMG-CoA REDUCTASE INHIBITORS Adverse Reaction (Intermediate, Uncoded 06/02/23 08:56) MYALGIA Resuscitation Status Full Code Height 6 ft 1 in Weight 106.541 kg Pharmacy Admission Review Renal Dosing Renal Dosing: BUN 24 mg/dL (7-18) H 07/07/23 06:49 Creatinine 1.5 mg/dL (0.70-1.30) H 07/07/23 06:49 Medications needing adjustments: Reviewed (crcl ~58, no adjustments needed) Anticoagulation Anticoagulation: Hgb 12.1 g/dL (13.5-17.5) L 07/07/23 06:49 Hct 36.3 % (40.0-50.0) L 07/07/23 06:49 Plt Count 272 10^3/uL (130-400) 07/07/23 06:49 INR 1.0 (0.9-1.1) 07/06/23 14:51 Creatinine 1.5 mg/dL (0.70-1.30) H 07/07/23 06:49 DVT Prophylaxis: Reviewed Medications: Heparin (5000 units subQ q12h) Opiate Usage Evaluate Pain Scale/Pains Meds: N/A Relevant Labs Relevant Labs: Sodium 142 mmol/L (136-145) 07/07/23 06:49 Potassium 4.0 mmol/L (3.5-5.1) 07/07/23 06:49 Chloride 108 mmol/L (98-107) H 07/07/23 06:49 Magnesium 2.2 mg/dL (1.8-2.4) 07/07/23 06:49 Electrolytes, C-Reactive P, ESR: Reviewed DM Control DM Control: Reviewed Insulin Dosing, Diabetic Medication: home meds: rybelsus, metformin, glipizide ER, tresiba insulin. +sliding scale insulin ACHS ordered here. tresiba + rybelsus are non-formulary and pt has been asked to have these brought in. Tresiba 60 units at bedtime can be substituted to lantus 48 units (20% reduction for conversion) -- will sub to Lantus if Tresiba is not brought in for this evening's dose Cardiac Review Cardiac Review: Troponin I < 50 ng/L (<or=60) 07/06/23 22:55 NT-Pro-B Natriuret Pep 64 pg/mL (<300) 07/06/23 14:51 BP, HR, EF%: Reviewed (BP running high, metoprolol is on hold pending stress test) QTc Review QTc: Reviewed (QTc = 432 on 07/06/23) List meds needing interventions: n/a IV to PO Switch IV Medications: Reviewed Home Meds Home Med List reviewed: Reviewed Current Meds Current Medication Order Review: Reviewed
[2023-07-07 15:14] VITALS: BP 146/89; PULSE 72; RESP 16; TEMP 36.2; O2SAT 100
--- NOTE | 2023-07-07 16:21 | DSE_ITS ---
Date of service: 07/07/23 Time of Service: 16:22 DS: Diagnosis Discharge Diagnosis (1) Chest pain: Status: Acute (2) CKD (chronic kidney disease) stage 3, GFR 30-59 ml/min: Status: Chronic (3) Obstructive sleep apnea: Status: Chronic (4) Essential hypertension: Status: Chronic (5) Insomnia: Status: Chronic (6) Obesity: Status: Chronic (7) Coronary artery disease, non-occlusive: Status: Chronic (8) Type 2 diabetes mellitus with hyperlipidemia: Status: Chronic (9) DVT prophylaxis: Status: Acute (10) Discharge planning issues: Status: Acute Discharge Plan Disposition Patient Disposition: Home Condition: Fair Discharge Details Reason For Visit: Chest Pain Admit Date/Time: 07/06/23 16:19 Admit Provider: Roland Garcia Attending Provider: Roland Garcia [facility] Course: This is a 68-year-old male patient with past medical history of Chronic Kidney D isease, Obstructive Sleep Apnea, diabetes, and hypertension presented to the [facility] ED on 07/06/23 via EMS for evaluation of chest pain. He reported acute onset of severe nausea that then progressed to severe substernal chest pressure, profuse diaphoresis and shortness of breath on 07/06 in the afternoon. He reported symptoms as severe as he was trying to drive himself to the hospital. Unable to drive further, he pulled over and EMS was called. Upon EMS arrival, chest pressure had subsided. The patient received aspirin. The patient denied similar past symptoms as well as previous cardiac history. In the ED, glucose was 235, creatinine 1.7, CXR negative, troponin <50, EKG normal sinus rhythm HR 70.The hospitalist was contacted by the ED provider and the patient admitted as observation status on the medical surgical ?floor with telemetry. Additional 2 serial troponin levels completed and negative, the telemetry reading showed sinus rhythm 60-70; creatinine 1.5 and glucose 121 this AM. Cardiac echo done with LVEF of 60% and Stage I diastolic dysfunction. Stress test conducted today was normal as reported by net front end developer Dr. Renea Reyes to Dr. Garcia. The patient will be discharged home on his home drug regimen with follow-up with cardiology as an outpatient, and primary care follow-up within the next 1-2 weeks. Plan discussed with Dr. Garcia Home Meds and New Rx's Prescriptions: Continued nitroglycerin 0.4 mg tablet, sublingual 0.4 mg SL ONCE PRN (Reason: chest pain) Qty: 30 0RF Rx Instructions: Take 1 tablet once for chest pain, repeat in 5min if still present and call 911 amlodipine 10 mg tablet 10 mg PO DAILY Qty: 90 3RF aspirin [Adult Aspirin Regimen] 81 mg tablet,delayed release (DR/EC) 81 mg PO DAILY All Day Allergy (cetirizine) 10 mg capsule 10 mg PO DAILY cyclobenzaprine 5 mg tablet 5 - 10 mg PO TID PRN (Reason: muscle spasm) Qty: 60 0RF Patient Comments: pt states uses PRN Rx Instructions: Take 1-2 tablet by mouth three times a day as needed for back pain ezetimibe [Zetia] 10 mg tablet 10 mg PO DAILY Qty: 90 3RF (DME) lancets [OneTouch UltraSoft Lancets] Misc See Rx Instructions .MEDSUPPLY Qty: 200 4RF Rx Instructions: Check blood sugar twice a day (DME) FreeStyle Precision Serg Strips Strip See Rx Instructions .ROUTE .MEDSUPPLY Qty: 10 0RF Rx Instructions: As directed (DME) pen needle, diabetic [BD Ultra-Fine Leah Pen Needle] 32 gauge x 5/32 needle See Dose Instructions .ROUTE .MEDSUPPLY Qty: 200 4RF Rx Instructions: Use with tresiba pen once a day semaglutide 14 mg tablet 14 mg PO DAILY Qty: 90 3RF Rx Instructions: Take 1 tablet once a day lisinopril 20 mg tablet 20 mg PO BID Qty: 180 3RF chlorthalidone 25 mg tablet 25 mg PO DAILY Qty: 90 3RF bupropion HCl 150 mg tablet extended release 24 hr 150 mg PO QAM Qty: 90 3RF zolpidem 6.25 mg tablet,ext release multiphase 6.25 mg PO QHS PRN (Reason: insomnia) Qty: 30 0RF Patient Comments: pt states as needed (DME) FreeStyle Luis 14 Day Sensor Kit See Rx Instructions .ROUTE .MEDSUPPLY Qty: 3 4RF Rx Instructions: Continuous glucose monitor (DME) FreeStyle Luis 14 Day [place]cock Misc See Rx Instructions .ROUTE .MEDSUPPLY Qty: 3 4RF Rx Instructions: Continuous glucose monitor metformin 500 mg tablet extended release 24 hr 1,000 mg PO BID Qty: 360 3RF Rx Instructions: Take 2 tablets twice a day metoprolol succinate 25 mg tablet extended release 24 hr 25 mg PO DAILY Qty: 90 3RF Rx Instructions: Take 1 tablet daily insulin degludec 200 unit/mL (3 mL) insulin pen 60 unit SC QHS Qty: 12 4RF glipizide 5 mg tablet extended release 24hr 5 mg PO DAILY Qty: 90 3RF Discharge Instructions Referrals: Ester Olivo NP [Primary Care Provider] - 07/13/23 (Status post admission for chest pain) Renea Reyes MD [ [facility] STAFF PHYSICIAN] - Activity:: Activity as Tolerated Equipment/Supplies:: No Equipment Needed Diet:: As Tolerated Discharge Orders Discharge Orders: Discharge Order (Routine); Ordered 07/07/23 Ordered By: Terese Segundo DS: Summary Time Spent with Patient providing and/or coordinating discharge services: Greater than 30 minutes Status at Discharge Functional status at discharge: independent ambulation Overall status at discharge: patient is back to baseline Mental Status: mental status grossly normal Speech and Movement: speech and movement normal Mood: congruent mood Affect: normal affect Exam Narrative Exam Narrative: Constitutional The patient is sitting in chair/ lying in bed comfortable and cooperative during the interview. The patient is well groomed without acute distress and has average body habitus/is obese/ is thin. HENMT: Head is atraumatic, normocephalic, no lymphadenopathy. Facial structures with normal appearance Eyes: Well aligned, intact ROM Neck: Normal ROM, no meningeal signs Neuro:alert and oriented to self, person, place time and situation. No neurological focal deficit, Chest:Chest is symmetrical and normal appearance Resp: Normal respiratory pattern, speaks in full sentences, clear lung bilaterally Cardio: regular rhythm, S1, S2, no murmur,Telemetry SR, capillary refill<3 sec., bilateral radial and dorsalis pedis pulses are positive, palpable GI: Abdomen is not distended, soft and non tender, bowel sounds are present : Back/spine/Pelvis: normal alignment Integumentary: No skin lesions or rash Extremities: strength 5/5 to bilateral lower and upper extremities Psych: RASS 0, congruent mood and normal affect. Psych Mental Status: mental status grossly normal Speech and Movement: speech and movement normal Mood: congruent mood Affect: normal affect DS: Data Vitals/I&O Vitals and I&O: Vital Signs Temperature 36.2 C L 07/07/23 15:14 Temperature Source Tympanic 07/07/23 15:14 Pulse 72 07/07/23 15:14 Pulse Rhythm Regular 07/07/23 10:00 Pulse 68 07/06/23 17:20 Respiratory Rate 16 07/07/23 15:14 Respiratory Effort Normal, Non-Labored 07/07/23 10:00 Respiratory Depth Normal 07/07/23 10:00 Respiratory Pattern Normal 07/07/23 10:00 Blood Pressure 146/89 H 07/07/23 15:14 Blood Pressure Mean 98 07/06/23 17:16 Pulse Oximetry 100 07/07/23 15:14 Oxygen Delivery Method Room Air 07/07/23 15:14 Oxygen Flow Rate 0 07/07/23 15:14 Pain Level 0 07/07/23 15:14 Comment Nurse notified about BP. 07/07/23 07:55 Intake & Output 07/06/23 07/07/23 07/07/23 23:59 11:59 23:59 Intake Total 700 / 700 Balance 700 / 700 Weight 107.864 kg 106.541 kg Intake: Oral 700 / 700 Other: Urine Appearance Clear Comment unmeasured void pT goes to the bathroom independently. Voiding Methods Toilet Toilet Data Completed and Pending Labs on day of discharge: Labs from last 24 hours 07/07/23 07/06/23 07/06/23 06:49 22:55 19:43 WBC 7.60 RBC 3.99 L Hgb 12.1 L Hct 36.3 L MCV 91 MCH 30.3 MCHC 33.3 RDW 12.4 Plt Count 272 MPV 9.6 Immature Gran % 0.3 Neutrophils % 62.1 Lymphocytes % 25.1 Monocytes % 6.8 Eosinophils % 5.4 Basophils % 0.3 Nucleated RBC % 0.0 Absolute Neutrophils 4.72 Absolute Lymphocytes 1.91 Absolute Monocytes 0.52 Absolute Eosinophils 0.41 Absolute Basophils 0.02 Sodium 142 Potassium 4.0 Chloride 108 H Carbon Dioxide 23.6 Anion Gap 10.4 BUN 24 H Creatinine 1.5 H Est GFR (CKD-EPI 2020) 49.77 Glucose 121 H Calcium 9.0 Magnesium 2.2 Troponin I < 50 < 50 COVID-19 Source SARS-CoV-2 (PCR) 07/06/23 07/06/23 17:52 16:28 WBC RBC Hgb Hct MCV MCH MCHC RDW Plt Count MPV Immature Gran % Neutrophils % Lymphocytes % Monocytes % Eosinophils % Basophils % Nucleated RBC % Absolute Neutrophils Absolute Lymphocytes Absolute Monocytes Absolute Eosinophils Absolute Basophils Sodium Potassium Chloride Carbon Dioxide Anion Gap BUN Creatinine Est GFR (CKD-EPI 2020) Glucose Calcium Magnesium Troponin I Cancelled COVID-19 Source Nasal/Nares SARS-CoV-2 (PCR) Negative PFSH All Active Problems (Updated 07/06/23 @ 20:02 by Cookie Black NP) Discharge planning issues (Acute) DVT prophylaxis (Acute) Chest pain (Acute) Rotator cuff arthropathy of right shoulder (Acute) CKD (chronic kidney disease) stage 3, GFR 30-59 ml/min (Chronic) Type 2 diabetes mellitus with hyperlipidemia (Chronic) Coronary artery disease, non-occlusive (Chronic) [place] [facility] [place] Obstructive sleep apnea (Chronic) Hyperlipidemia (Chronic) Essential hypertension (Chronic) Pulmonary arterial hypertension (Chronic) Insomnia (Chronic) Obesity (Chronic) Medical History Cerebrovascular accident (CVA) Silent, unknown when occurred but lacunar infarcts seen on head CTs as old as 2014 Fracture of right orbital floor Pericarditis 2000 Post concussion syndrome Syncope Tubular adenoma of colon Surgical History H/O arthroscopy of left knee S/P colonoscopy (07/28/16) S/P right rotator cuff repair (09/08/03) S/P trigger finger release (09/06/04) Bilateral index fingers Family History Mother , at 59 Stroke Hypertension Father , at 58 CAD (coronary artery disease) Liver cancer Sister No problems noted. Brother No problems noted. Son No problems noted. Son No problems noted. Maternal Grandfather No problems noted. Maternal Grandmother No problems noted. Paternal Grandfather No problems noted. Paternal Grandmother No problems noted. Daughter Down syndrome Social History (Updated 11/24/22 @ 12:07 by Karla Nolasco) Smoking/Tobacco Use Status: Former Tobacco Use tobacco type: cigarettes Tobacco: How many years used: 16 Quit status: quit date established Second Hand Exposure: No Smoking risk assessment performed?: Yes Alcohol Intake: current Alcohol Intake frequency: a few times a month Alcohol type: beer and wine Drug use: Never Substance use type: does not use Caregiver/Support person: No Household members: spouse and children Housing: house Communication Needs: None Do you need help understanding health information?: Never Pets and animals: Yes Pets and animals: cat(s) and dog(s) Sexually active: Yes Do you think of yourself as: straight/heterosexual Current gender identity: male What is your relationship status?: How often do you talk on the phone with friends or family?: three or more times per week How often do you get together with friends or relatives?: three or more times per week How often do you attend protestant or mandaeism services?: decline to answer Do you belong to any clubs or organized social groups?: yes Panel score (0-1 are the most socially isolated patients): 3 What type of physical activity do you participate in: none Duration: 15-30 minutes/day Frequency: does not exercise Heidi/Spiritism: Yazdanism Special heidi needs: No Seatbelt use: always Helmet use: Yes Helmet use: always Drive intox or ride w/intox armored car guard and driver: No Do you feel safe at home: Yes Do you feel safe in your relationship?: Yes Time Spent with Patient Time Spent with Patient: 45-69 minutes Time was spent: preparing to see the patient(eg.review tests), ordering medications,tests, procedures, referring, communicating with other health healthcare risk control consultant, indepentently interpreting results, counseling the patient and care coordination
[2023-07-07] MEDS: Metoprolol CR 25 MG TABCR PO (17:05)
== END 2023-07-07 18:09 | disposition home or self-care (01) ==
LOC: ER 16:59 → MS 17:43
PROVIDERS: Nurse Practitioner Family; Admitting Provider Family Medicine; Emergency Provider Emergency Medicine; PCP Nurse Practitioner Family; Visit Provider Family Medicine
DX: R07.89 Other chest pain (principal); Z79.4 Long term (current) use of insulin; I12.9 Hypertensive chronic kidney disease with stage 1 through stage 4 chronic kidney disease, or unspecified chronic kidney disease; N18.30 Chronic kidney disease, stage 3 unspecified; G47.33 Obstructive sleep apnea (adult) (pediatric); E66.9 Obesity, unspecified; G47.00 Insomnia, unspecified; I25.10 Atherosclerotic heart disease of native coronary artery without angina pectoris; E78.5 Hyperlipidemia, unspecified; E11.22 Type 2 diabetes mellitus with diabetic chronic kidney disease; I27.20 Pulmonary hypertension, unspecified; Z86.73 Personal history of transient ischemic attack (TIA), and cerebral infarction without residual deficits; Z87.891 Personal history of nicotine dependence; Z79.82 Long term (current) use of aspirin; Z79.84 Long term (current) use of oral hypoglycemic drugs; R06.02 Shortness of breath
CPT/HCPCS: 00123; 36415; 78452; 80048; 80053; 85027; 87635; 93005; 99285; 71045; 83735; 83880; 84484; 85025; 85610; 85730; 93010; 93017; 93306; 99222; 99239; G0378

== ENCOUNTER 2023-08-18 10:46 | Day surgery (SDC) | payer OTHER, SELFPAY ==
--- NOTE | 2023-08-17 21:47 | W.PM.HP.N ---
Date of service: 08/18/23 Time of Service: 14:30 Assessment and Plan Assessment and plan (1) Rotator cuff arthropathy of right shoulder: Status: Acute (2) CKD (chronic kidney disease) stage 3, GFR 30-59 ml/min: Status: Chronic (3) Type 2 diabetes mellitus with hyperlipidemia: Status: Chronic (4) Insomnia: Status: Chronic (5) Obesity: Status: Chronic (6) Diverticulosis of colon: Status: Inactive (7) Obstructive sleep apnea: Status: Chronic (8) Coronary artery disease, non-occlusive: Status: Chronic (9) Pulmonary arterial hypertension: Status: Chronic (10) Hyperlipidemia: Status: Chronic (11) Essential hypertension: Status: Chronic (12) ADHD (attention deficit hyperactivity disorder): Status: Inactive (13) Tubular adenoma of colon: Assessment and plan: Plan: Colonoscopy w/ general & natural airway. ? Informed consent is obtained for the procedural (explained in simple layman's terms that?the pt and/or family could understand) explaining risks vs benefits and alternatives to the procedure and consequences if we do not do the procedure and need/rational for the procedure. Risks include but are not limited to: bleeding, infection, perforation of colon.? This would necessitate emergency surgery to repair the damage w/ possible ostomy; and other associated complications w/ the required surgery. ? Also complications of anesthesia including aspiration, WV/CVA/, inability to complete the procedure. I discussed with the?patient would they could expect during the procedure, post procedure and recovery time and risks.? The patient understands that they need to have a ride home after the procedure.? The patient was given all this information in writing and expressed understanding. If there are any questions or concerns please feel free to contact our office.? Generally Colonoscopy does not require antibiotics prophylaxis, (14) Cerebrovascular accident (CVA): Qualifiers: CVA mechanism: thrombosis Laterality of affected vessel: left Precerebral and cerebral artery: middle cerebral artery Qualified Code(s): I63.312 - Cerebral infarction due to thrombosis of left middle cerebral artery History of Present Illness Narrative: Patient is here today for colonoscopy for adenomatous polyps.??? They completed a bowel prep with just a clear yellow residual effluent.? They not having any chest pain or shortness of breath, currently.? They are not experiencing any fever or chills.? They deny any productive cough or upper respiratory tract infection signs or symptoms.? They are not having abdominal pain, or nausea and vomiting.? They have not had any changes in medications, past medical history or past surgical history since previously being seen in the office. They have not had any accidents or have been in the ER since the clinic pre-operative evaluation. ??I reviewed the procedure with the patient today, including risks and benefits of the procedure, and what they could expect at home for recovery.? All questions are answered to the patient?s satisfaction today, and they are stable to proceed with the proposed procedure. Pt seen at the request of PCP regarding colon cancer screening. Pt has had colon cancer screening before.? They denies problems with constipation or diarrhea.? They deny any pain or difficulty with bowel movements, or rectal bleeding.? There is no family history of any colon cancer.? Pt has not had any unexplained weight loss.? Their appetite is good.? ?They deny heart, lung, or kidney problems. They are not having heartburn or indigestion. They have not had any prior colo-rectal surgery.? The patient has not had a prior porstate sx or XRT.? They deny any problems with anesthesia in the past. He had adenomas polyps in the past (2010) . last ce ws nl 2016). Anesthesia: general (without airway) Previous surgical intolerances: No Previous surgical complications: No Pulmonary risk factors: Planned procedure: Yes Sleep apnea risks: No COPD/Asthma/Smoker: quit 30 yrs ago. + CPAP Can climb one flight of stairs (12-13 steps) in less than 30 seconds without stopping and without symptoms: Yes The surgery proposed for this patient is: low risk Active cardiac conditions: none Active risk factors: none ASA (acetylsalicylic acid): yes Beta blockers: metoprolol Kidneys: Stage III. GFR ~45 DM: yes Semaglutide+ -pt has recently in hospital w/ chest pain. He did not have any elevated trops or EKG changes. Had an echo and GXT that were nl. No no further problems. I did review the case w/ anesthesia and they feel he is a candidate for anesthesia at [facility] ?CE 2016 Mr. Briones is a 61-year-old gentleman who had a colonoscopy in 2010 and was found to have one tubular adenoma. Patient is back now for another colonoscopy. Risks, benefits, and complications were reviewed with him and he wished to proceed. No guarantees were given or implied. Description of the Operative Procedure: After informed consent was obtained, the patient was taken to the endoscopy suite and placed in the left decubitus position. Monitors were applied and a time-out was done. The patient was then placed under sedation, and once asleep and comfortable, the scope was introduced and advanced to the cecum with some difficulty. We ended up having to put the patient on his back in order for the scope to not curl and to go all the way to the cecum. Once in the cecum, the terminal ileum and appendiceal orifice were identified. The prep was adequate. The scope was then slowly retracted over 7 minutes back into the rectum. Mild diverticulosis was noted in the left colon, but no polyps were identified. The scope was retroflexed in the rectum. No internal hemorrhoids were noted. The scope was straightened and removed. The patient was woken up and taken back to [facility] in stable condition. Review of Systems All systems reviewed & are unremarkable except as noted in HPI and below PFSH All Active Problems Rotator cuff arthropathy of right shoulder (Acute) CKD (chronic kidney disease) stage 3, GFR 30-59 ml/min (Chronic) Type 2 diabetes mellitus with hyperlipidemia (Chronic) Insomnia (Chronic) Obesity (Chronic) Obstructive sleep apnea (Chronic) Coronary artery disease, non-occlusive (Chronic) LHC, [place]HC at [facility] [place] Pulmonary arterial hypertension (Chronic) Hyperlipidemia (Chronic) Essential hypertension (Chronic) Medical History Chest pain Neg NM stress test 07/13 Fracture of right orbital floor Tubular adenoma of colon Pericarditis 2000 Post concussion syndrome Syncope Cerebrovascular accident (CVA) Silent, unknown when occurred but lacunar infarcts seen on head CTs as old as 2014 Surgical History History of cardiac catheterization for chest pain, but comes back clean ,per S/P colonoscopy (07/28/16) H/O arthroscopy of left knee S/P trigger finger release (09/06/04) Bilateral index fingers S/P right rotator cuff repair (12/19/03) Family History Mother , at 59 Stroke Hypertension Father , at 58 CAD (coronary artery disease) Liver cancer Sister No problems noted. Brother No problems noted. Son No problems noted. Son No problems noted. Maternal Grandfather No problems noted. Maternal Grandmother No problems noted. Paternal Grandfather No problems noted. Paternal Grandmother No problems noted. Daughter Down syndrome Social History Smoking/Tobacco Use Status: Former Tobacco Use tobacco type: cigarettes Quit Date: 09/21/84 Tobacco: How many years used: 16 Quit status: quit date established Second Hand Exposure: No Smoking risk assessment performed?: Yes Alcohol Intake: former Drug use: Never Substance use type: does not use Caregiver/Support person: No Household members: spouse and children Housing: house Communication Needs: None Do you need help understanding health information?: Never Pets and animals: Yes Pets and animals: cat(s) and dog(s) Sexually active: Yes Do you think of yourself as: straight/heterosexual Current gender identity: male What is your relationship status?: How often do you talk on the phone with friends or family?: three or more times per week How often do you get together with friends or relatives?: three or more times per week How often do you attend faith or restorationist services?: decline to answer Do you belong to any clubs or organized social groups?: yes Panel score (0-1 are the most socially isolated patients): 3 What type of physical activity do you participate in: none Duration: 15-30 minutes/day Frequency: does not exercise Heidi/Christian: Yarsanism Special heidi needs: No Seatbelt use: always Helmet use: Yes Helmet use: always Drive intox or ride w/intox nascar driver: No Do you feel safe at home: Yes Do you feel safe in your relationship?: Yes Additional Social history: Pt has spouse support at home. Meds Allergies and Home Medications Allergies Allergy/AdvReac Type Severity Reaction Status Date / Time HMG-CoA REDUCTASE INHIBITORS AdvReac Intermediate MYALGIA Uncoded 08/18/23 11:20 Home Medications Medication Instructions Recorded Confirmed Type aspirin 81 mg tablet,delayed 81 mg PO DAILY 05/31/18 08/18/23 History release (Adult Aspirin Regimen) cetirizine 10 mg capsule (All Day 10 mg PO DAILY 05/31/18 08/18/23 History Allergy (cetirizine)) nitroglycerin 0.4 mg sublingual 0.4 mg sublingual ONCE PRN chest 04/19/21 08/18/23 Rx tablet pain #30 tabs blood sugar diagnostic (FreeStyle #10 ea 07/19/21 08/04/23 Rx Precision Serg Strips) lancets (OneTouch UltraSoft #200 ea 07/19/21 08/04/23 Rx Lancets) pen needle, diabetic 32 gauge x #200 ea 09/11/22 08/04/23 Rx /32 (BD Ultra-Fine Leah Pen Needle) cyclobenzaprine 5 mg tablet 5 - 10 mg (1 - 2 x 5 mg) PO TID 11/24/22 08/18/23 Rx PRN muscle spasm #60 tabs chlorthalidone 25 mg tablet 25 mg PO DAILY #90 tabs 12/03/22 08/18/23 Rx lisinopril 20 mg tablet 20 mg PO BID #180 tabs 12/03/22 08/18/23 Rx semaglutide 14 mg tablet 14 mg PO DAILY #90 tabs 12/03/22 08/17/23 Rx ezetimibe 10 mg tablet (Zetia) 10 mg PO DAILY #90 tabs 02/27/23 08/18/23 Rx bupropion HCl 150 mg 24 hr tablet, 150 mg PO QAM #90 tabs 04/08/23 08/18/23 Rx extended release amlodipine 10 mg tablet 10 mg PO DAILY #90 tabs 04/16/23 08/18/23 Rx zolpidem 6.25 mg tablet,extended 6.25 mg PO QHS PRN insomnia #30 04/28/23 08/18/23 Rx release,multiphase tabs flash glucose scanning reader #3 ea 05/18/23 08/04/23 Rx (FreeStyle Luis 14 Day Noble) flash glucose sensor (FreeStyle #3 ea 05/18/23 08/04/23 Rx Luis 14 Day Sensor kit) metformin 500 mg tablet,extended 1,000 mg (2 x 500 mg) PO BID #360 05/18/23 08/18/23 Rx release 24 hr tabs metoprolol succinate 25 mg 25 mg PO DAILY #90 tabs 05/18/23 08/18/23 Rx tablet,extended release 24 hr insulin degludec 200 unit/mL (3 60 unit (0.3 mL) subcut QHS #12 06/15/23 08/18/23 Rx mL) subcutaneous pen SYRGS glipizide 5 mg tablet, extended 5 mg PO DAILY #90 tabs 07/06/23 08/18/23 Rx release 24 hr Exam Const General: cooperative, healthy appearing, comfortable, no acute distress and well groomed Nutritional Appearance: overweight Orientation: alert, awake and oriented x3 Other: PHYSICAL EXAM GENERAL APPEARANCE: Alert, healthy appearance, oriented, x 3,? in no acute distress HYDRATION: Well hydrated HEAD, EYES, EARS, NECK, THROAT: Head is normocephalic, pupils equal, round, reactive to light and accommodation, ocular movement intact, sclera clear and no jaundice. ?Dentition intact. LUNGS: normal respiration/normal chest excursion. ?Clear to auscultation bilaterally. ?No wheeze. ?HEART: Regular rate and rhythm. no murmurs ABDOMEN: soft and non-tender to palpation.? Normal bowel sounds.? Time Spent Time spent with Patient: <40 minutes Time was spent: preparing to see the patient(eg.review tests), obtaining and/or reviewing separately otained hiistory, ordering medications,tests, procedures, referring, communicating with other health child care teacher, indepentently interpreting results, counseling the patient and care coordination
--- NOTE | 2023-08-17 21:52 | W.PM.DSUDISC ---
Date of service: 08/18/23 Time of Service: 15:35 Discharge Plan Disposition Patient Disposition: Home Condition: Good Discharge Details Reason For Visit: Colon scope Attending Provider: Angela Villagomez Primary Care Provider: Ester Olivo Meds and New Rx's Prescriptions: No Action nitroglycerin 0.4 mg tablet, sublingual 0.4 mg SL ONCE PRN (Reason: chest pain) Qty: 30 0RF Rx Instructions: Take 1 tablet once for chest pain, repeat in 5min if still present and call 911 amlodipine 10 mg tablet 10 mg PO DAILY Qty: 90 3RF aspirin [Adult Aspirin Regimen] 81 mg tablet,delayed release (DR/EC) 81 mg PO DAILY All Day Allergy (cetirizine) 10 mg capsule 10 mg PO DAILY cyclobenzaprine 5 mg tablet 5 - 10 mg PO TID PRN (Reason: muscle spasm) Qty: 60 0RF Patient Comments: pt states uses PRN Rx Instructions: Take 1-2 tablet by mouth three times a day as needed for back pain ezetimibe [Zetia] 10 mg tablet 10 mg PO DAILY Qty: 90 3RF (DME) lancets [OneTouch UltraSoft Lancets] Misc See Rx Instructions .MEDSUPPLY Qty: 200 4RF Rx Instructions: Check blood sugar twice a day (DME) FreeStyle Precision Serg Strips Strip See Rx Instructions .ROUTE .MEDSUPPLY Qty: 10 0RF Rx Instructions: As directed (DME) pen needle, diabetic [BD Ultra-Fine Leah Pen Needle] 32 gauge x 5/32 needle See Dose Instructions .ROUTE .MEDSUPPLY Qty: 200 4RF Rx Instructions: Use with tresiba pen once a day semaglutide 14 mg tablet 14 mg PO DAILY Qty: 90 3RF Rx Instructions: Take 1 tablet once a day lisinopril 20 mg tablet 20 mg PO BID Qty: 180 3RF chlorthalidone 25 mg tablet 25 mg PO DAILY Qty: 90 3RF bupropion HCl 150 mg tablet extended release 24 hr 150 mg PO QAM Qty: 90 3RF zolpidem 6.25 mg tablet,ext release multiphase 6.25 mg PO QHS PRN (Reason: insomnia) Qty: 30 0RF Patient Comments: pt states as needed (DME) FreeStyle Luis 14 Day Sensor Kit See Rx Instructions .ROUTE .MEDSUPPLY Qty: 3 4RF Rx Instructions: Continuous glucose monitor (DME) FreeStyle Luis 14 Day [place] Misc See Rx Instructions .ROUTE .MEDSUPPLY Qty: 3 4RF Rx Instructions: Continuous glucose monitor metformin 500 mg tablet extended release 24 hr 1,000 mg PO BID Qty: 360 3RF Rx Instructions: Take 2 tablets twice a day metoprolol succinate 25 mg tablet extended release 24 hr 25 mg PO DAILY Qty: 90 3RF Rx Instructions: Take 1 tablet daily insulin degludec 200 unit/mL (3 mL) insulin pen 60 unit SC QHS Qty: 12 4RF glipizide 5 mg tablet extended release 24hr 5 mg PO DAILY Qty: 90 3RF Discharge Instructions Additional Instructions: DSU Colonoscopy Post-Op Instructions Instructions for Everyone who is given Anesthesia: For your safety, please do the following for the next twenty-four (24) hours: *Do Not operate a motor vehicle (car, truck, motorcycle, etc.) *Do Not drink alcoholic beverages or use any recreational drugs for the first 24 hours or while taking pain medications. The medications in your body may have a reaction that can be dangerous. *Do Not make any important decisions or sign any important papers. Findings: diverticula small polyp Follow up: My office will send a letter in 2 to 3 weeks time with the results of the pathology and when we want you to repeat the colonoscopy. 1. No lifting over 20 pounds or strenuous activity for the first 24 hours after your procedure. After 24 hours there are no restrictions on your activity but you may feel fatigued for a few days. 2. After you arrive home you may have a light meal and return to your normal diet as you can tolerate it without feeling sick to your stomach. 3. You may have a bloated, gaseous feeling in your belly (abdomen) after a colonoscopy. Passing gas and belching will help. Walking or lying down on your left side with your knees flexed may relieve the discomfort. Call the office at [phone] (Office) or [phone] (Hospital) right away if you notice any of the following: a.Vomiting of blood or ?coffee ground stools?. b.Rectal bleeding 1Tbsp, blood clots or continuous bleeding. c.Severe belly (abdominal) pain. d.A hard distended belly (abdomen) and an inability to pass gas. 4. Please don?t expect to have a normal BM (bowel movement) for 2-3 days after your procedure. 5. If there are questions regarding the findings of your procedure, please contact your doctor 6. If you are unable to contact your doctor with a problem, contact the hospital at [phone]. 7. Continue all your regular medications unless directed otherwise. I understand the above instructions and have no questions. Signature of Patient or Adult Escort Name of Responsible Adult Escort Signature of Nurse Date/Time Activity:: See above Diet:: See above can be evaluated DS: Diagnosis Discharge Diagnosis (1) Rotator cuff arthropathy of right shoulder: Status: Acute (2) CKD (chronic kidney disease) stage 3, GFR 30-59 ml/min: Status: Chronic (3) Type 2 diabetes mellitus with hyperlipidemia: Status: Chronic (4) Insomnia: Status: Chronic (5) Obesity: Status: Chronic (6) Diverticulosis of colon: Status: Inactive (7) Obstructive sleep apnea: Status: Chronic (8) Coronary artery disease, non-occlusive: Status: Chronic (9) Pulmonary arterial hypertension: Status: Chronic (10) Hyperlipidemia: Status: Chronic (11) Essential hypertension: Status: Chronic (12) ADHD (attention deficit hyperactivity disorder): Status: Inactive (13) Tubular adenoma of colon: Asessment and Plan: The patient is seen and examined after their colonoscopy.? The patient has been able to pass gas.? They are not having abdominal pain.? They have been able to tolerate liquids and a snack.? They do not have any nausea or vomiting.? They are not having any chest pain or shortness of breath.??? They are not having any rectal bleeding. Their vital signs have been stable-see nursing notes. We discussed findings during their colonoscopy, and any biopsies that were done/polyps that were removed. The patient will be sent a letter with any biopsy results, and when to repeat the colonoscopy.-see discharge instructions. Patient was given explicit instructions to follow-up regarding colonoscopy-refer to discharge instructions.? We reviewed resumption of medications. Patient verbalized understanding and discharged in stable and satisfactory condition- See nursing notes. (14) Cerebrovascular accident (CVA):
--- NOTE | 2023-08-17 22:02 | W.COLOREPORT ---
Date of service: 08/18/23 Time of Service: 15:30 Colonoscopy Report Date of procedure: 08/18/23 Pre-op diagnosis general: Tubular adenomas and diverticula Post-op diagnosis procedure note: same Surgeon: Angela Villagomez Anesthesia Type: General:No Airway Estimated blood loss (mL): 1 Pathology: other Complications: None Disposition: same day Prep: Miralax/Dulcolax Retraction Time: 15 Procedure Description: After informed consent was obtained the patient was taken to the procedure room and placed in a left decubitous position. Monitors were applied and a time out was done. The patients name, date of , procedure, allergies to medications and metal in their body was reviewed. The patient was then sedated. Once sedated and comfortable a rectal exam was done. External exam was normal. Internal exam revealed a normal sphincter tone and no palpable masses. The prostate without masses. The scope was then introduced and retrofelexed. No internal hemorrhoids were identified. The scope was then advanced to the 100 cm. Despite repositioning the position the patient supine and abdominal pressure, I could not intubate the cecum. I could see into the cecum, and there were no masses or lesions present. The TI and appendiceal orifice were identified. The prep was BBPS II in all segments for a total of 6. The colon was irrigated with a liter of saline to facilitate visulaization.. The scope was then slowly retracted over 15 minutes back into the rectum. He has x2.5 cm flat polyps at 90 cm. These are removed with a cold biting forcep. All specimens retrieved and no bleeding is noted. He has a few small scattered diverticula in the sigmoid colon. There is no signs of active bleeding or infection. The scope was removed and the patient was woken up and taken back to Same day surgery in stable condition. The patient tolerated the procedure well and there were no immediate complications. Follow up: The patient should follow up in 5-7 years, path pending, unless they develop changes in bowel habits or other new gastrointestinal complaints.
--- NOTE | 2023-08-18 10:38 | ANES.PREOP_ITS ---
General Info Date of Service Date Performed: 08/18/23 Height: 6 ft 1 in Weight: 107.955 kg Body Mass Index (BMI): 31.4 Surgical Procedure: Operation Date: 08/18/23 12:20 Proposed Procedure Side Surgeon gisselle Villagomez, Meds Allergies and Home Medications Allergies Allergy/AdvReac Type Severity Reaction Status Date / Time HMG-CoA REDUCTASE INHIBITORS AdvReac Intermediate MYALGIA Uncoded 08/18/23 11:20 Home Medication Medication Instructions Recorded aspirin 81 mg tablet,delayed 81 mg PO DAILY 05/31/18 release (Adult Aspirin Regimen) cetirizine 10 mg capsule (All Day 10 mg PO DAILY 05/31/18 Allergy (cetirizine)) nitroglycerin 0.4 mg sublingual 0.4 mg sublingual ONCE PRN chest 04/19/21 tablet pain #30 tabs blood sugar diagnostic (FreeStyle #10 ea 07/19/21 Precision Serg Strips) lancets (OneTouch UltraSoft #200 ea 07/19/21 Lancets) pen needle, diabetic 32 gauge x #200 ea 09/11/22/32 (BD Ultra-Fine Leah Pen Needle) cyclobenzaprine 5 mg tablet 5 - 10 mg (1 - 2 x 5 mg) PO TID 11/24/22 PRN muscle spasm #60 tabs chlorthalidone 25 mg tablet 25 mg PO DAILY #90 tabs 12/03/22 lisinopril 20 mg tablet 20 mg PO BID #180 tabs 12/03/22 semaglutide 14 mg tablet 14 mg PO DAILY #90 tabs 12/03/22 ezetimibe 10 mg tablet (Zetia) 10 mg PO DAILY #90 tabs 02/27/23 bupropion HCl 150 mg 24 hr tablet, 150 mg PO QAM #90 tabs 04/08/23 extended release amlodipine 10 mg tablet 10 mg PO DAILY #90 tabs 04/16/23 zolpidem 6.25 mg tablet,extended 6.25 mg PO QHS PRN insomnia #30 04/28/23 release,multiphase tabs flash glucose scanning reader #3 ea 05/18/23 (FreeStyle Luis 14 Day [place]) flash glucose sensor (FreeStyle #3 ea 05/18/23 Luis 14 Day Sensor kit) metformin 500 mg tablet,extended 1,000 mg (2 x 500 mg) PO BID #360 05/18/23 release 24 hr tabs metoprolol succinate 25 mg 25 mg PO DAILY #90 tabs 05/18/23 tablet,extended release 24 hr insulin degludec 200 unit/mL (3 60 unit (0.3 mL) subcut QHS #12 06/15/23 mL) subcutaneous pen SYRGS glipizide 5 mg tablet, extended 5 mg PO DAILY #90 tabs 07/06/23 release 24 hr Current Visit Medications: Current Medications Generic Name Dose Route Start Last Admin Trade Name Freq PRN Reason Stop Dose Admin Ringer's Solution 1,000 mls @ 80 mls/hr 08/18/23 06:00 IV 08/18/23 16:00 INFUSION MARS IV Miscellaneous Supplies 1 each 08/18/23 06:00 Iv Access IV 08/18/23 16:00 DIRECTED MARS Sodium Chloride 0 ml 08/18/23 06:00 Normal Saline Flush 10 Ml Syr IV 08/18/23 16:00 PRN PRN Sodium Chloride 0 ml 08/18/23 06:00 Normal Saline 10 Ml Vial IJ 08/18/23 16:00 DIRECTED PRN Sterile Water 0 ml 08/18/23 06:00 Water,Injection,Sterile 10 Ml Vial IJ 08/18/23 16:00 DIRECTED PRN PFSH Active Problems Active Problems: Problem Status Onset Code Rotator cuff arthropathy of right shoulder M12.811 CKD (chronic kidney disease) stage 3, GFR 30-59 ml/min N18.30 Type 2 diabetes mellitus with hyperlipidemia E11.69, E78.5 Insomnia G47.00 Obesity E66.9 Depressive disorder F32.9 Obstructive sleep apnea G47.33 Coronary artery disease, non-occlusive I25.10 Pulmonary arterial hypertension I27.21 Hyperlipidemia E78.5 Essential hypertension I10 Medical History Medical History Chest pain Neg NM stress test 07/13 Fracture of right orbital floor Tubular adenoma of colon Pericarditis 2000 Post concussion syndrome Syncope Cerebrovascular accident (CVA) Silent, unknown when occurred but lacunar infarcts seen on head CTs as old as 2014 Surgical History Surgical History History of cardiac catheterization for chest pain, but comes back clean ,per S/P colonoscopy (07/28/16) H/O arthroscopy of left knee S/P trigger finger release (09/06/04) Bilateral index fingers S/P right rotator cuff repair (09/08/03) Tobacco Smoking/Tobacco Use Status: Former Tobacco Use Second hand exposure: No Alcohol Alcohol Intake: former Substance Use Substance use: Never Substance use type: does not use Vital Signs and Lab Results Lab Results Blood Type / Crossmatch: No Data to Display Complete Blood Count: No Data to Display Complete Metabolic Panel: No Data to Display Liver Function Panel: No Data to Display Coagulation Panel: No Data to Display Cardiac Panel: No Data to Display Arterial Blood Gas: No Data to Display Venous Blood Gas: No Data to Display Pancreas Panel: No Data to Display Thyroid Panel: No Data to Display Infectious Disease: No Data to Display Blood Cultures: No Data to Display Toxicology Panel: No Data to Display Imaging and Studies Imaging and Studies Study information below may be from another EMR and interpreted by another provider. Please see original notes in EMR for more complete details. EKG Summary: 07/13: sinus. Stress Test Summary: 07/13: normal perfusion, LVEF 54%. Echocardiogram Summary: 07/13: LVEF 60%, no sig valve dz. mild Ao dilation 3.64. Carotid Artery Summary:: 05/08: no sig carotid stenosis. Pulmonary Function Summary: 06/08: mild restrictive lung dz. Anesthesia Assessment and Plan Anesthesia History Personal History: No History of Anesthesia Complications Family History: No Family History of Anesthesia Complications Exercise Tolerance Exercise Tolerance: Metabolic Equivalents>4 Cardiac & Pulmonary Exam Cardiac Exam: Normal S1/S2 Heart Sounds Pulmonary Exam: Clear Bilateral Breath Sounds Implantable Cardiac Device Does patient have a Pacemaker or an ICD?: No Airway Exam Known Difficult Airway: No Mallampati Class: 3 Mouth Opening: Normal (> 3cm) Thyromental Distance: Less than 3 cm Neck Range of Motion: Full ROM Neck Circumference: Thick Teeth Condition: Normal Dentition ASA Classification ASA Score: ASA 3 Emergency Case?: No NPO Status NPO Status: NPO Clears >2 hours, Solids >8 hours Anesthesia Plan Resuscitation Status: Full Code Anesthesia Technique: General Anesthesia Airway Planned: Natural Airway Monitors Used: Standard Monitors Preoperative Comments:: 68 yo male for colo. Sig PMHx: HTN, CVA, WERNER, DM2 (semaglutide, metformin, degludex, glipizide), CKDIII, former smoker,
[2023-08-18 11:28] VITALS: BP 138/79; PULSE 72; RESP 18; TEMP 36.6; O2SAT 98
[2023-08-18] MEDS: Lactated Ringers 1,000 ML 80 ML IV (11:56)
[2023-08-18 14:45] VITALS: BMI 31.4
--- NOTE | 2023-08-18 15:08 | BOWEL_PTH ---
PATIENT: Markell Briones LOC: [facility] U#:[id number] AGE/SX: 68/M ROOM: RE08/18/[address]: Angela Villagomez : 1955 BED: DIS: 08/18/2023 SPEC #: [id number] RECD: 08/18/23 17:25 STATUS: MINDY FRAZIER #: [id number] AZAEL: 08/18/23 15:[address]: Angela Villagomez DEPT: Surgical Specimen RECD BY: Mikayla Gonzales ENTERED: 08/18/23 17:25 SP TYPE: Bowel OTHR DR: ROSELIA Parks Tissues: 1 - BIOPSY BOWEL Procedures: GROSS AND MICRO LEVEL 4 Comments: [id number]
[2023-08-18 15:49] VITALS: BP 139/77; PULSE 80; RESP 18; TEMP 36.7; O2SAT 98
[2023-08-18 16:05] VITALS: BP 151/72; PULSE 60; RESP 18; TEMP 36.7; O2SAT 98
--- NOTE | 2023-08-18 16:19 | W.ANESPOSTOP ---
Postoperative Evaluation Date, Time and Location Date Performed: 08/18/23 Time Performed: 15:47 Patient Location: Day Surgery Unit Vital Signs Most Recent Imported Vital Signs: Most Recent Vital Signs Temp Pulse Resp BP Pulse Ox 36.7 C 60 18 151/72 H 98 08/18/23 16:05 08/18/23 16:05 08/18/23 16:05 08/18/23 16:05 08/18/23 16:05 Pain Score Most Recent Pain Score: Most Recent Pain Score Pain Level 0 08/18/23 16:05 Assessment Mental Status: Awake (Alert & Oriented to Patient Baseline) Airway and Respiratory Function: Patent airway with normal (patient baseline) respiratory exam Cardiovascular Function: Hemodynamically Stable Hydration Status: Adequately Hydrated Nausea & Vomiting: No Nausea or Vomiting Pain: Pt. Denies Any Pain Peripheral Nerve Block: Patient did not receive a nerve block
== END 2023-08-18 16:50 | disposition home or self-care (01) ==
LOC: SUR 10:47
PROVIDERS: PCP Nurse Practitioner Family; Visit Provider Surgery
PROC: 0DJD8ZZ Inspection of Lower Intestinal Tract, Via Natural or Artificial Opening Endoscopic (ICD-10-PCS; CPT 45378; principal; 2023-08-18 12:15)
DX: Z12.11 Encounter for screening for malignant neoplasm of colon (principal); K63.5 Polyp of colon; K57.30 Diverticulosis of large intestine without perforation or abscess without bleeding; I10 Essential (primary) hypertension; I25.10 Atherosclerotic heart disease of native coronary artery without angina pectoris; I63.312 Cerebral infarction due to thrombosis of left middle cerebral artery; E11.69 Type 2 diabetes mellitus with other specified complication; E78.5 Hyperlipidemia, unspecified
CPT/HCPCS: 45380; 88305

== ENCOUNTER 2024-04-14 14:20 | Outpatient (CLI) | payer OTHER, SELFPAY ==
--- NOTE | 2024-04-14 14:15 | RT.EKG_ITS ---
APPROVED REPORT Exam: Resting ECG Reason for Exam: fatigue Patient Location: O HR:59 bpm ECG Measurements Heart Rate 59 AXIS OH 181 P -40 QRSd 82 QRS -18 QT 395 T 10 QTc 392 Conclusion Sinus rhythm...normal P axis, V-rate 50- 99 Poor R wave progression
== END 2024-04-14 14:21 | disposition home or self-care (01) ==
LOC: DI.CM 14:21
PROVIDERS: PCP Nurse Practitioner Family; Visit Provider Nurse Practitioner Family
DX: R53.83 Other fatigue (principal)
CPT/HCPCS: 93010

== ENCOUNTER 2024-04-15 14:53 | Outpatient (CLI) | payer OTHER, SELFPAY ==
[2024-04-15 15:26] LABS: Abs Immature Grans 0.05 10^3/uL (0.0-0.06); Absolute Basophil Count 0.03 10^3/uL (0.0-0.2); Absolute Eosinophil Count 0.53 10^3/uL (0.0-0.7); Absolute Lymphocyte Count 1.91 10^3/uL (1.2-3.4); Absolute Monocyte Count 0.86 10^3/uL (0.1-0.8); Absolute Neutrophil Count 6.52 10^3/uL (1.2-6.7); Basophils % 0.3 %; Eosinophils % 5.4 %; HCT 35.9 % (40.0-50.0); HGB 11.4 g/dL (13.5-17.5); Immature Grans % 0.5 %; Lymphocytes % 19.3 %; MCH 28.8 pg (27.0-33.0); MCHC 31.8 % (32.0-36.0); MCV 91 fL (80-95); MPV 9.8 fL (8.0-11.0); Monocytes % 8.7 %; Neutrophils % 65.8 %; Platelet Count 338 10^3/uL (130-400); RBC 3.96 10^6/uL (4.36-5.78); RDW 13.1 % (11.8-14.1); RDW-SD 43.4 fL
[2024-04-15 15:28] LABS: ESR 37 mm/hr (0-20)
[2024-04-15 15:35] LABS: Hemoglobin A1C 8.1 % (<5.7)
[2024-04-15 16:33] LABS: ALT 24 U/L (16-63); AST 12 U/L (15-37); Albumin 3.4 g/dL (3.4-5.0); Alkaline Phosphatase 119 U/L (46-116); BUN 36 mg/dL (7-18); Bilirubin, Total 0.17 mg/dL (0.2-1.0); CREATININE 1.6 mg/dL (0.70-1.30); Calcium 9.3 mg/dL (8.5-10.1); Chloride 107 mmol/L (98-107); Estimated GFR 45.78 (mL/min/1.73m2); Ferritin 12 ng/mL (26-388); Glucose 140 mg/dL (74-106); Potassium 4.7 mmol/L (3.5-5.1); Sodium 141 mmol/L (136-145); TSH (W/Ref FT4) 2.02 uIU/mL (0.36-3.74); Total Protein 7.3 g/dL (6.4-8.2); Vitamin B12 346 pg/mL (193-986); Vitamin D 25 Total 31.8 ng/mL (30-100)
[2024-04-15 16:45] LABS: Creatine Kinase 140 U/L (39-308)
[2024-04-15 16:48] LABS: C-Reactive Protein < 0.50 mg/dL (<or=0.5)
[2024-04-18 11:16] LABS: Lyme Ab w Rflx to Lyme Confirm Negative (Negative)
[2024-04-18 12:34] LABS: Hepatitis C Ab w Rflx HCV PCR Negative (Negative)
[2024-04-18 23:25] LABS: Anaplasma phagocytophilum Negative (Negative); B. miyamotoi PCR Negative (Negative); Babesia divergens/MO-1 Negative (Negative); Babesia duncani Negative (Negative); Babesia microti Negative (Negative); Ehrlichia chaffeensis Negative (Negative); Ehrlichia ewingii/canis Negative (Negative); Ehrlichia muris eauclairensis Negative (Negative)
== END 2024-04-15 14:54 | disposition home or self-care (01) ==
LOC: LBO 14:53
PROVIDERS: PCP Nurse Practitioner Family; Visit Provider Nurse Practitioner Family
DX: R53.83 Other fatigue (principal); Z00.00 Encounter for general adult medical examination without abnormal findings; I10 Essential (primary) hypertension; I27.21 Secondary pulmonary arterial hypertension
CPT/HCPCS: 36415; 80053; 82306; 82550; 85652; 86803; 87798; 82607; 82728; 83036; 84443; 85025; 86140; 86618

== ENCOUNTER 2024-04-28 21:21 | Outpatient (CLI) | payer OTHER, SELFPAY ==
[2024-04-28 17:36] LABS: HGB 11.4 g/dL (13.5-17.5); MCH 28.9 pg (27.0-33.0); MCHC 31.7 % (32.0-36.0); MCV 91 fL (80-95); MPV 9.6 fL (8.0-11.0); Platelet Count 364 10^3/uL (130-400); RBC 3.94 10^6/uL (4.36-5.78); RDW 13.6 % (11.8-14.1); RDW-SD 45.2 fL; WBC 9.51 10^3/uL (4.4-10.8)
[2024-04-28 18:13] LABS: Iron 46 ug/dL (65-175); Total Iron Binding Capacity 336 ug/dL (250-450)
[2024-04-28 18:40] LABS: Ferritin 31 ng/mL (26-388); Folate 14.5 ng/mL (8.6-20.0); Vitamin B12 432 pg/mL (193-986)
[2024-05-04 12:47] LABS: Transferrin 263 mg/dL (201-352)
== END 2024-04-28 21:22 | disposition home or self-care (01) ==
LOC: LBO 21:21
PROVIDERS: PCP Nurse Practitioner Family; Visit Provider Nurse Practitioner Family
DX: D50.9 Iron deficiency anemia, unspecified (principal); R53.83 Other fatigue
CPT/HCPCS: 36415; 85027; 82607; 82728; 82746; 83540; 83550; 84466

== ENCOUNTER 2024-05-25 10:45 | Outpatient (CLI) | payer OTHER, SELFPAY ==
[2024-05-25 11:01] LABS: Abs Immature Grans 0.02 10^3/uL (0.0-0.06); Absolute Basophil Count 0.03 10^3/uL (0.0-0.2); Absolute Eosinophil Count 0.36 10^3/uL (0.0-0.7); Absolute Lymphocyte Count 1.66 10^3/uL (1.2-3.4); Basophils % 0.3 %; Eosinophils % 4.1 %; HCT 40.4 % (40.0-50.0); HGB 12.9 g/dL (13.5-17.5); Immature Grans % 0.2 %; Lymphocytes % 18.7 %; MCHC 31.9 % (32.0-36.0); MCV 91 fL (80-95); MPV 9.5 fL (8.0-11.0); Monocytes % 5.6 %; Neutrophils % 71.1 %; Platelet Count 323 10^3/uL (130-400); RBC 4.45 10^6/uL (4.36-5.78); RDW 13.9 % (11.8-14.1); RDW-SD 46.6 fL; WBC 8.87 10^3/uL (4.4-10.8)
[2024-05-25 12:00] LABS: Iron 93 ug/dL (65-175); Total Iron Binding Capacity 335 ug/dL (250-450)
[2024-05-25 12:01] LABS: ALT 35 U/L (16-63); AST 19 U/L (15-37); Albumin 3.7 g/dL (3.4-5.0); Alkaline Phosphatase 99 U/L (46-116); Anion Gap 7.3 mmol/L (3-11); BUN 38 mg/dL (7-18); Bilirubin, Total 0.24 mg/dL (0.2-1.0); CO2 27.7 mmol/L (21.0-32.0); CREATININE 1.7 mg/dL (0.70-1.30); Calcium 9.4 mg/dL (8.5-10.1); Chloride 109 mmol/L (98-107); Estimated GFR 42.57 (mL/min/1.73m2); Ferritin 40 ng/mL (26-388); Folate 16.4 ng/mL (8.6-20.0); Glucose 140 mg/dL (74-106); Sodium 144 mmol/L (136-145); Total Protein 7.3 g/dL (6.4-8.2); Vitamin B12 429 pg/mL (193-986)
[2024-05-25 18:11] LABS: PSA, Screening 1.7 ng/mL (<=6.5)
[2024-05-26 10:00] LABS: HIV-1/2 Ag & Ab Screen Negative (Negative)
[2024-05-26 10:15] LABS: Transferrin 265 mg/dL (201-352)
[2024-06-13 11:38] LABS: Hepatitis B Core Antibody Negative (Negative); Hepatitis B Surface Antigen Negative (Negative)
[2024-06-13 11:40] LABS: HBs Antibody, Quant <3.1 mIU/mL (See Note); Hep B Surface Ab Negative (See Note)
== END 2024-05-25 10:46 | disposition home or self-care (01) ==
LOC: LBO 10:45
PROVIDERS: PCP Nurse Practitioner Family; Visit Provider Nurse Practitioner Family
DX: D50.9 Iron deficiency anemia, unspecified (principal); Z12.5 Encounter for screening for malignant neoplasm of prostate; Z11.4 Encounter for screening for human immunodeficiency virus [HIV]; Z11.59 Encounter for screening for other viral diseases
CPT/HCPCS: 36415; 80053; 84153; 86704; 86706; 87340; 87389; 82607; 82728; 82746; 83540; 83550; 84466; 85025

== ENCOUNTER 2025-03-21 16:54 | Outpatient (CLI) | payer OTHER, SELFPAY ==
[2025-03-21 17:17] LABS: ESR 13 mm/hr (0-20)
[2025-03-21 18:36] LABS: TSH (W/Ref FT4) 0.99 uIU/mL (0.36-3.74); Vitamin B12 350 pg/mL (193-986); Vitamin D 25 Total 30 ng/mL (30-100)
[2025-03-21 19:07] LABS: Uric Acid 6.4 mg/dL (3.5-7.2)
[2025-03-23 10:45] LABS: Lyme Ab w Rflx to Lyme Confirm Negative (Negative)
[2025-03-25 08:28] LABS: B. miyamotoi PCR Negative (Negative); Babesia divergens/MO-1 Negative (Negative); Ehrlichia muris eauclairensis Negative (Negative)
== END 2025-03-21 16:55 | disposition home or self-care (01) ==
LOC: LBO 16:55
PROVIDERS: PCP Nurse Practitioner Family; Visit Provider Nurse Practitioner Family
DX: M35.3 Polymyalgia rheumatica (principal); R53.83 Other fatigue; R40.0 Somnolence
CPT/HCPCS: 36415; 82306; 85652; 87798; 82607; 84443; 84550; 86038; 86431; 86618